=== PATIENT | male | born 1945 | race Caucasian/White ===

== ENCOUNTER → 2018-06-05 08:01 | Outpatient (CLI) | payer OTHER, SELFPAY ==
--- NOTE | 2018-06-05 | DI.NM.S_ITS ---
PROCEDURE: NM CAROL PERF SPECT REST & STR Rest and exercise myocardial perfusion SPECT with gated imaging and ejection fraction RADIOPHARMACEUTICAL: 22.8 mCi Tc-99m sestamibi IV at rest and 26.8 mCi Tc-99m sestamibi IV at peak exercise. A two day-protocol was performed. INDICATIONS: Atherosclerotic heart disease of [place] coronary a TECHNIQUE: Radiopharmaceutical was injected at peak stress test, and also at rest. SPECT images were obtained. SPECT myocardial perfusion images were displayed in short axis, horizontal long axis, and vertical long axis views. Gated images were reviewed using [employer] software. COMPARISON: None. CARDIAC STRESS: A standard Jameson treadmill exercise tolerance test was performed by the patient under the supervision of an attending staff. The patient exercised for 5 minutes and 49 seconds reaching 7.0 METs; functional aerobic impairment (TARIK) is +10%. Hemodynamic data: There is normal heart rate response to exercise stress. Patient achieved 83% of maximum predicted heart [place] [address], suggesting adequate stress test. Hypertension at rest (BP 150/100) and borderline hypertensive response to exercise (BP 210/110). Symptoms: Patient denied chest pain during exercise. EKG: No diagnostic EKG changes of ischemia; frequent PVCs present. FINDINGS: Raw data: There is good myocardial labeling by radiotracer. No significant motion artifacts. Kjio-ur-tyiwb ratio is 0.37 (normal is less than 0.38 for sestamibi tracer, and less than 0.50 for thallium tracer). Left ventricle function: Gated images demonstrate normal left ventricle wall thickening. No segmental wall motion abnormality. No transient ischemic dilation; TID is 0.81 (normal less than 1.3). The left ventricle resting end-diastolic volume is 122 mL. Left ventricle stress ejection fraction is 69% ; normal values are above 45%. Myocardial perfusion: There is a mildly to moderately intense fixed defect in the basal to mid inferior wall suggesting prior non-transmural infarction. No significant ischemia present. 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 1) Mildly to moderately intense basal to mid inferior wall fixed defect suggestive of prior infarction. No significant ischemia present. SSS and SRS are 14. 2) Normal left ventricular size, wall motion, and systolic function (EF post stress 69%). 3) No ECG evidence of ischemia. Frequent PVCs present. 4) No angina during the study. Significant dyspnea present during the study. 5) Mildly reduced exercie tolerance (7.0 METs, TARIK +10%). Adequate stress test (double product 18270 with 83% of target heart rate achieved). 6) Hypertension at rest (BP 150/100) and borderline hypertensive response to exercise (BP 210/110). 7) No prior nuclear stress test available for comparison. Dictated by: Carissa Orozco MD on 06/09/2018 at 17:43 Approved by: Carissa Orozco MD on 06/09/2018 at 17:50
--- NOTE | 2018-06-05 09:19 | PM.TREADMILL ---
Cardiac Stress Test Report Referral & Results Date Patient Seen: 06/05/18 Requesting provider: Carissa Orozco Rest ECG: Unremarkable Procedure Note: Today following both written and verbal informed consent the patient was exercised according to a standard Jameson protocol patient went for a total of 5 min 49 sec achieving a maximum heart rate of 120 for maximum systolic blood pressure of 210. This is approximately 7.0 METS. Exercise was terminated at this point because of severe knee and hip symptoms as well as 3+ dyspnea. Patient was also given Cardiolite through a previously started Hep-Lock IV by the health care sanitary technician approximately 1 minute prior to the cessation of exercise. There are no ST-T segment changes Somewhat hypertensive to start an overall peak blood pressure hypertensive Frequent PVCs including a single ventricular couplet Functional aerobic impairment rated 10% on the sedentary scale Impression: No evidence of ischemia based on ECG criteria Hypertension, and average exercise capacity Ventricular dysrhythmia as above Perfusion imaging to be reported separately Please note: Actual ECG tracings can be found in the PACS system.
== END ==
PROVIDERS: PCP Family Medicine; Visit Provider Internal Medicine Cardiovascular Disease
DX: I25.10 Atherosclerotic heart disease of native coronary artery without angina pectoris (principal); I25.2 Old myocardial infarction; I49.3 Ventricular premature depolarization; I10 Essential (primary) hypertension
CPT/HCPCS: 78452; 93016; 93017; 93018; A9502

== ENCOUNTER 2018-07-14 09:42 | Emergency (ER) | payer OTHER, SELFPAY ==
[2018-07-14] VITALS (7 sets, daily range): BP systolic 106–141; BP diastolic 74–96; PULSE 68–78; RESP 12–20; TEMP 36.4; O2SAT 97–100; BMI 27.6
--- NOTE | 2018-07-14 09:42 | DI.RAD.S_ITS ---
PROCEDURE: XR CHEST 1V INDICATIONS: presyncope, hx of cardiac stents sept TECHNIQUE: One view of the chest was acquired. COMPARISON: [facility], , CHEST 1 VIEW, 09/01/2016, 7:51. FINDINGS: Surgical changes and devices: None. Lungs and pleura: No pleural effusions or pneumothorax. Lungs are clear. Mediastinum: Mediastinal contours appear normal. Heart size is normal. Bones and chest wall: No suspicious bony lesions. Overlying soft tissues appear unremarkable. IMPRESSION: No acute cardiopulmonary pathology. Dictated by: Sachin Walker M.D. on 07/14/2018 at 10:12 Approved by: Sachin Walker M.D. on 07/14/2018 at 10:16
--- NOTE | 2018-07-14 09:44 | ED.SYNCOPE ---
HPI - Syncope General Chief Complaint: Syncope Stated Complaint: Near Syncope Time Seen by Provider: 07/14/18 09:42 Source: patient and EMS Mode of arrival: EMS Limitations: no limitations History of Present Illness HPI narrative: This is a 73-year-old male comes to the emergency department with complaint of near-syncope. Patient was at cardiac rehab when he felt lightheaded like he might pass out. He did not get tunnel vision or have any actual syncope. Patient states that he has not had any headache, no vision changes, he denies any chest pain or pressure, no shortness of breath, no nausea or vomiting no recent GI or urinary symptoms. Patient did have a heart attack in April during a flight and was treated in [place] and had cardiac stents placed. 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 Bourgeois. Has a prior history of bladder cancer and Ruiz's esophagitis. Patient takes aspirin and Plavix which he has had today, he takes a statin as well as blood pressure medication. Patient states that with his last heart attack he had a syncopal event but was also very nauseated and vomiting. Related Data Home Medications Medication Instructions Recorded Confirmed aspirin 81 mg tablet,delayed 81 mg PO DAILY 05/08/18 07/14/18 release atorvastatin 80 mg tablet 80 mg PO BEDTIME 05/08/18 07/14/18 carvedilol 6.25 mg tablet 6.25 mg PO BID 05/08/18 07/14/18 omeprazole 20 mg capsule,delayed 20 mg PO BID cap 05/08/18 07/14/18 release clopidogrel 75 mg tablet 75 mg PO DAILY 07/10/18 07/14/18 Previous Rx's Medication Instructions Recorded hydrochlorothiazide 25 mg tablet 25 mg PO DAILY #90 tab 02/07/18 lisinopril 20 mg tablet 20 mg PO BID #60 tab 05/08/18 cyclobenzaprine 10 mg tablet 10 mg PO BID PRN #60 tab 07/10/18 Allergies Allergy/AdvReac Type Severity Reaction Status Date / Time Penicillins [PENICILLINS] Allergy Intermediate Hives Verified 07/14/18 09:47 Review of Systems Review of Systems All systems reviewed & are unremarkable except as noted in HPI and below Constitutional Denies chills, Denies fatigue, Denies fever(s), Denies headache(s) and Denies weakness Eyes Denies blurry vision and Denies change in vision ENT Ears, Nose, Mouth, and Throat: Denies headache(s) Cardiovascular Denies chest pain, Denies diaphoresis, Denies syncope (But felt like he would pass), Denies edema, Denies irregular heart rhythm, Reports lightheadedness, Denies palpitations, Denies dyspnea, Denies dyspnea on exertion and Denies orthopnea Respiratory Denies change in phlegm color, Denies chest congestion, Denies cough, Denies dyspnea and Denies dyspnea on exertion Gastrointestinal Gastrointestinal: Denies abdominal pain, Denies change in bowel habits, Denies diarrhea, Denies nausea and Denies vomiting Genitourinary Denies hematuria, Denies flank pain, Denies urinary incontinence and Denies urinary urgency Musculoskeletal Denies back pain and Denies numbness Neurologic Denies syncope (But felt like he would pass), Denies headache(s), Denies focal weakness, Denies numbness, Denies paresthesias and Denies weakness Endocrine Denies fatigue and Denies palpitations PFSH Social History marital status: Smoking Status: Never smoker alcohol intake: never substance use type: does not use Exam Initial Vital Signs Initial Vital Signs: Vital Signs Temperature 97.6 F 07/14/18 09:35 Pulse Rate 73 07/14/18 09:35 Respiratory Rate 14 07/14/18 09:35 Blood Pressure 112/86 07/14/18 09:35 Pulse Oximetry 100 07/14/18 09:35 GENERAL: Alert and oriented x three, well-nourished, well-appearing male in no acute distress. Patient is lying flat initially on exam. No diaphoresis. HEENT: Head normocephalic, atraumatic, EOMI, pupils reactive, face symmetric, dry mucous membranes NECK: Supple, full range of motion CARDIOVASCULAR: Regular rate and rhythm without murmurs, rubs or gallops. RESPIRATORY: Breath sounds equal bilaterally, no wheezes rales or rhonchi. ABDOMEN: Soft, nontender. Normoactive bowel sounds all 4 quadrants. No guarding or rebound, rigidity, no mass, no bruit or pulsatile mass. : No CVA tenderness EXTREMITIES: Normal range of motion, no clubbing or edema. 2+ pulses upper and lower extremities. Neurovascularly intact NEUROLOGICAL: Cranial nerves II through XII grossly intact. Moving all extremities SKIN: Warm, dry, no petechiae, no rashes or lesions. Course Orders Ordered: ED Orders 07/14/18 09:42 XR chest 1V Stat EKG-12 Lead Stat 07/14/18 10:10 B Type Natriuretic Peptide Stat Complete Blood Count AUTO DIFF Stat Comprehensive Metabolic Panel Stat Lipase Stat Partial Thromboplastin Time Stat Prothrombin Time INR Stat Troponin & CK Cardiac Panel Stat 07/14/18 12:10 Troponin I Stat EKG-12 Lead Stat Discontinued Medications Sodium Chloride (Normal Saline 0.9%) 1,000 mls @ 1,000 mls/hr IV BOLUS ONE Stop: 07/14/18 10:41 Last Infusion: 07/14/18 10:41 Dose: 0 mls/hr Admin: 07/14/18 10:07 Dose: 1,000 mls/hr Vital Signs - 8 hr 07/14/18 09:35 07/14/18 10:17 07/14/18 10:30 Temperature 97.6 F Pulse Rate 73 68 73 Respiratory Rate 14 13 20 Blood Pressure 112/86 Blood Pressure [Right Arm] 124/83 106/74 Pulse Oximetry 100 100 97 07/14/18 11:18 07/14/18 11:30 07/14/18 11:58 Temperature Pulse Rate 73 72 77 Respiratory Rate 12 13 18 Blood Pressure Blood Pressure [Right Arm] 122/83 136/96 H 139/96 H Pulse Oximetry 97 97 98 07/14/18 12:47 Temperature Pulse Rate 78 Respiratory Rate 17 Blood Pressure Blood Pressure [Right Arm] 141/91 H Pulse Oximetry 99 MDM - Syncope Lab Data Attestation: I reviewed the patient's lab results. Result diagrams: 07/14/18 10:10 07/14/18 10:10 Lab Results 07/14/18 07/14/18 07/14/18 Range/Units 10:10 10:10 10:10 WBC 8.3 (4.5-11.0) X10^3/uL RBC 4.48 L (4.5-5.9) X10^6/uL Hgb 12.9 L (13.5-17.5) g/dL Hct 39.1 L (41-53) % MCV 87.3 (80-100) fL MCH 28.8 (26-34) PG MCHC 33.0 (30-36) % RDW 15.0 H (11.6-14.8) % Plt Count 258 (150-400) X10^3/uL Neut % (Auto) 56.0 (50-75) % Lymph % (Auto) 22.0 L (25-40) % Real % (Auto) 17.7 H (3-14) % Eos % (Auto) 3.4 (2-4) % Baso % (Auto) 0.9 (0-2) % Neut # (Auto) 4600 (5649-0506) /uL PT 12.3 (10.1-12.7) SECONDS INR 1.1 (0.9-1.3) APTT 28 (26.4-36.2) SECONDS Sodium 141 (137-145) mmol/L Potassium 3.9 (3.4-5.1) mmol/L Chloride 107 (98-107) mmol/L Carbon Dioxide 23 (22-32) mmol/L BUN 24 H (9-20) mg/dL Creatinine 1.20 (0.66-1.25) mg/dL Estimated GFR 59.7 L (>60) mL/min BUN/Creatinine Ratio 20.0 (6-22) Glucose 94 (80-110) mg/dL Calcium 9.0 (8.4-10.2) mg/dL Total Bilirubin 0.5 (0.2-1.3) mg/dL AST 23 (17-59) IU/L ALT 39 (21-72) IU/L Alkaline Phosphatase 60 (38-126) U/L Total Creatine Kinase 83 (55-170) U/L CK-MB (CK-2) TNP CK-MB (CK-2) Rel Index TNP Troponin I < 0.012 (0.01-0.034) ng/mL B-Natriuretic Peptide < 100.0 (<100) Total Protein 6.0 L (6.3-8.2) g/dL Albumin 3.3 L (3.5-5.0) g/dL Globulin 2.7 (1.7-4.1) g/dL Albumin/Globulin Ratio 1.2 (1.0-2.8) Lipase 98 (23-300) U/L 07/14/18 Range/Units 12:10 WBC (4.5-11.0) X10^3/uL RBC (4.5-5.9) X10^6/uL Hgb (13.5-17.5) g/dL Hct (41-53) % MCV (80-100) fL MCH (26-34) PG MCHC (30-36) % RDW (11.6-14.8) % Plt Count (150-400) X10^3/uL Neut % (Auto) (50-75) % Lymph % (Auto) (25-40) % Real % (Auto) (3-14) % Eos % (Auto) (2-4) % Baso % (Auto) (0-2) % Neut # (Auto) (3283-9486) /uL PT (10.1-12.7) SECONDS INR (0.9-1.3) APTT (26.4-36.2) SECONDS Sodium (137-145) mmol/L Potassium (3.4-5.1) mmol/L Chloride (98-107) mmol/L Carbon Dioxide (22-32) mmol/L BUN (9-20) mg/dL Creatinine (0.66-1.25) mg/dL Estimated GFR (>60) mL/min BUN/Creatinine Ratio (6-22) Glucose (80-110) mg/dL Calcium (8.4-10.2) mg/dL Total Bilirubin (0.2-1.3) mg/dL AST (17-59) IU/L ALT (21-72) IU/L Alkaline Phosphatase (38-126) U/L Total Creatine Kinase (55-170) U/L CK-MB (CK-2) CK-MB (CK-2) Rel Index Troponin I < 0.012 (0.01-0.034) ng/mL B-Natriuretic Peptide (<100) Total Protein (6.3-8.2) g/dL Albumin (3.5-5.0) g/dL Globulin (1.7-4.1) g/dL Albumin/Globulin Ratio (1.0-2.8) Lipase (23-300) U/L Urine Dip Bedside Urine Glucose Negative Bedside Urine Bilirubin - Negative Bedside Urine Ketone - Negative Urine Specific [place] 1.020 Bedside Urine Occult Blood - Negative Bedside Urine pH 6.5 Bedside Urine Protein - Negative Bedside Urine Urobilinogen - Negative Bedside Urine Nitrite - Negative Bedside Urine Leukocytes - Negative Esterase Imaging Data Chest x-ray: Radiologist's impression: [address] [address] XRay Report Signed Patient: Alonzo Goncalves EMR#: [id number] : 7Acct:[id number] Age/Sex: 73 / MDate of Service: 07/14/18 Loc: ED Accession Number: [id number] Procedure: XR chest 1V Ordering Provider: Cheri Her D.O. PROCEDURE: XR CHEST 1V INDICATIONS: presyncope, hx of cardiac stents sept TECHNIQUE: One view of the chest was acquired. COMPARISON: [facility], , CHEST 1 VIEW, 09/01/2016, 7:51. FINDINGS: Surgical changes and devices: None. Lungs and pleura: No pleural effusions or pneumothorax. Lungs are clear. Mediastinum: Mediastinal contours appear normal. Heart size is normal. Bones and chest wall: No suspicious bony lesions. Overlying soft tissues appear unremarkable. IMPRESSION: No acute cardiopulmonary pathology. Dictated by: Sachin Walker M.D. on 07/14/2018 at 10:12 Approved by: Sachin Walker M.D. on 07/14/2018 at 10:16 ECG Data Attestation: I personally reviewed and interpreted this ECG as follows: Interpretation: Patient has sinus rhythm with rate of 77, P are interval of 203 and QRS of 97 with a QTC of 424. Patient has Q-waves in 2 3 AVF which appears similar to prior. ST segments appear similar to prior EKG from 02/10/2010. Do not have more recent EKG than 2011 which also appears similar. Repeat EKG shows sinus rhythm with a rate of 69, a P are interval of 202, a QRS of 114 and a QTC of [address] elevation or depression noted. Q-waves in the same location as the initial EKG. MDM Narrative Medical decision making narrative: Patient's outpatient chart was reviewed, he had a stress test which did not show any ST changes at that time. Patient was encouraged to follow up with Cardiology after his stents were placed as he had several small blockages that were not stented. Patient symptoms at that time were that he had 2 syncopal episodes on his flight and nausea/vomiting. Patient is feeling much better after a L of fluids he is able to stand up and feels fine. Discussed I would like to repeat troponin and EKG particularly has atypical symptoms with his last MD. Patient's stress test was reviewed, he did have wall motion abnormality on his stress test after his MD once he had returned to the area. Patient has known coronary artery disease, likely had orthostatic hypotension and his feeling much better after a L of fluids. His blood pressure has been appropriate repeat troponin x2 is negative with no EKG changes. We did discuss that he has had atypical symptoms in the past and to return if he has any issues. Discharge Plan Departure Patient Disposition: Home Clinical Impression: Pre-syncope Discharge Date/Time: 07/14/18 12:59 Interventions: ED Discharge Assessment Last Done: 07/14/18 12:58 Instructions: DI for Syncope in Adults (Fainting) Activity Restrictions/Additional Instructions: Follow-up with your primary care physician and/or Cardiology for recheck in the next 2-3 days. Make sure you are staying hydrated. You may continue your home medications but monitor your blood pressure Return to the emergency department for any recurrent symptoms such as passing out, near-syncope or almost passing out, new chest pain or pressure, shortness of breath, diaphoresis or sweating, persistent vomiting or other new or concerning symptoms. Prescriptions: No Action omeprazole 20 mg capsule,delayed release(DR/EC) 20 mg PO BID RF: 0 aspirin [Adult Aspirin Regimen] 81 mg tablet,delayed release (DR/EC) 81 mg PO DAILY RF: 0 atorvastatin 80 mg tablet 80 mg PO BEDTIME RF: 0 carvedilol 6.25 mg tablet 6.25 mg PO BID RF: 0 lisinopril 20 mg tablet 20 mg PO BID Qty: 60 RF: 3 hydrochlorothiazide 25 mg tablet 25 mg PO DAILY Qty: 90 RF: 3 clopidogrel 75 mg tablet 75 mg PO DAILY RF: 0 cyclobenzaprine 10 mg tablet 10 mg PO BID PRN (Reason: muscle spasm) Qty: 60 RF: 1
--- NOTE | 2018-07-14 09:52 | ED_ITS ---
HPI - Syncope General Chief Complaint: Syncope Stated Complaint: Near Syncope Time Seen by Provider: 07/14/18 09:42 Source: patient and EMS Mode of arrival: EMS Limitations: no limitations History of Present Illness HPI narrative: This is a 73-year-old male comes to the emergency department with complaint of near-syncope. Patient was at cardiac rehab when he felt lightheaded like he might pass out. He did not get tunnel vision or have any actual syncope. Patient states that he has not had any headache, no vision changes, he denies any chest pain or pressure, no shortness of breath, no nausea or vomiting no recent GI or urinary symptoms. Patient did have a heart attack in April during a flight and was treated in [place] and had cardiac stents placed. His government gauger here is Dr. Orozco and his primary care is Dr. Bourgeois. Has a prior history of bladder cancer and Ruiz's esophagitis. Patient takes aspirin and Plavix which he has had today, he takes a statin as well as blood pressure medication. Patient states that with his last heart attack he had a syncopal event but was also very nauseated and vomiting. Related Data Home Medications Medication Instructions Recorded Confirmed aspirin 81 mg tablet,delayed 81 mg PO DAILY 05/08/18 07/14/18 release atorvastatin 80 mg tablet 80 mg PO BEDTIME 05/08/18 07/14/18 carvedilol 6.25 mg tablet 6.25 mg PO BID 05/08/18 07/14/18 omeprazole 20 mg capsule,delayed 20 mg PO BID cap 05/08/18 07/14/18 release clopidogrel 75 mg tablet 75 mg PO DAILY 07/10/18 07/14/18 Previous Rx's Medication Instructions Recorded hydrochlorothiazide 25 mg tablet 25 mg PO DAILY #90 tab 02/07/18 lisinopril 20 mg tablet 20 mg PO BID #60 tab 05/08/18 cyclobenzaprine 10 mg tablet 10 mg PO BID PRN #60 tab 07/10/18 Allergies Allergy/AdvReac Type Severity Reaction Status Date / Time Penicillins [PENICILLINS] Allergy Intermediate Hives Verified 07/14/18 09:47 Review of Systems Review of Systems All systems reviewed & are unremarkable except as noted in HPI and below Constitutional Denies chills, Denies fatigue, Denies fever(s), Denies headache(s) and Denies weakness Eyes Denies blurry vision and Denies change in vision ENT Ears, Nose, Mouth, and Throat: Denies headache(s) Cardiovascular Denies chest pain, Denies diaphoresis, Denies syncope (But felt like he would pass), Denies edema, Denies irregular heart rhythm, Reports lightheadedness, Denies palpitations, Denies dyspnea, Denies dyspnea on exertion and Denies orthopnea Respiratory Denies change in phlegm color, Denies chest congestion, Denies cough, Denies dyspnea and Denies dyspnea on exertion Gastrointestinal Gastrointestinal: Denies abdominal pain, Denies change in bowel habits, Denies diarrhea, Denies nausea and Denies vomiting Genitourinary Denies hematuria, Denies flank pain, Denies urinary incontinence and Denies urinary urgency Musculoskeletal Denies back pain and Denies numbness Neurologic Denies syncope (But felt like he would pass), Denies headache(s), Denies focal weakness, Denies numbness, Denies paresthesias and Denies weakness Endocrine Denies fatigue and Denies palpitations PFSH Social History marital status: Smoking Status: Never smoker alcohol intake: never substance use type: does not use Exam Initial Vital Signs Initial Vital Signs: Vital Signs Temperature 97.6 F 07/14/18 09:35 Pulse Rate 73 07/14/18 09:35 Respiratory Rate 14 07/14/18 09:35 Blood Pressure 112/86 07/14/18 09:35 Pulse Oximetry 100 07/14/18 09:35 GENERAL: Alert and oriented x three, well-nourished, well-appearing male in no acute distress. Patient is lying flat initially on exam. No diaphoresis. HEENT: Head normocephalic, atraumatic, EOMI, pupils reactive, face symmetric, dry mucous membranes NECK: Supple, full range of motion CARDIOVASCULAR: Regular rate and rhythm without murmurs, rubs or gallops. RESPIRATORY: Breath sounds equal bilaterally, no wheezes rales or rhonchi. ABDOMEN: Soft, nontender. Normoactive bowel sounds all 4 quadrants. No guarding or rebound, rigidity, no mass, no bruit or pulsatile mass. : No CVA tenderness EXTREMITIES: Normal range of motion, no clubbing or edema. 2+ pulses upper and lower extremities. Neurovascularly intact NEUROLOGICAL: Cranial nerves II through XII grossly intact. Moving all extremities SKIN: Warm, dry, no petechiae, no rashes or lesions. Course Orders Ordered: ED Orders 07/14/18 09:42 XR chest 1V Stat EKG-12 Lead Stat 07/14/18 10:10 B Type Natriuretic Peptide Stat Complete Blood Count AUTO DIFF Stat Comprehensive Metabolic Panel Stat Lipase Stat Partial Thromboplastin Time Stat Prothrombin Time INR Stat Troponin & CK Cardiac Panel Stat 07/14/18 12:10 Troponin I Stat EKG-12 Lead Stat Discontinued Medications Sodium Chloride (Normal Saline 0.9%) 1,000 mls @ 1,000 mls/hr IV BOLUS ONE Stop: 07/14/18 10:41 Last Infusion: 07/14/18 10:41 Dose: 0 mls/hr Admin: 07/14/18 10:07 Dose: 1,000 mls/hr Vital Signs - 8 hr 07/14/18 09:35 07/14/18 10:17 07/14/18 10:30 Temperature 97.6 F Pulse Rate 73 68 73 Respiratory Rate 14 13 20 Blood Pressure 112/86 Blood Pressure [Right Arm] 124/83 106/74 Pulse Oximetry 100 100 97 07/14/18 11:18 07/14/18 11:30 07/14/18 11:58 Temperature Pulse Rate 73 72 77 Respiratory Rate 12 13 18 Blood Pressure Blood Pressure [Right Arm] 122/83 136/96 H 139/96 H Pulse Oximetry 97 97 98 07/14/18 12:47 Temperature Pulse Rate 78 Respiratory Rate 17 Blood Pressure Blood Pressure [Right Arm] 141/91 H Pulse Oximetry 99 MDM - Syncope Lab Data Attestation: I reviewed the patient's lab results. Result diagrams: 07/14/18 10:10 07/14/18 10:10 Lab Results 07/14/18 07/14/18 07/14/18 Range/Units 10:10 10:10 10:10 WBC 8.3 (4.5-11.0) X10^3/uL RBC 4.48 L (4.5-5.9) X10^6/uL Hgb 12.9 L (13.5-17.5) g/dL Hct 39.1 L (41-53) % MCV 87.3 (80-100) fL MCH 28.8 (26-34) PG MCHC 33.0 (30-36) % RDW 15.0 H (11.6-14.8) % Plt Count 258 (150-400) X10^3/uL Neut % (Auto) 56.0 (50-75) % Lymph % (Auto) 22.0 L (25-40) % [place] % (Auto) 17.7 H (3-14) % Eos % (Auto) 3.4 (2-4) % Baso % (Auto) 0.9 (0-2) % Neut # (Auto) 4600 (1598-6184) /uL PT 12.3 (10.1-12.7) SECONDS INR 1.1 (0.9-1.3) APTT 28 (26.4-36.2) SECONDS Sodium 141 (137-145) mmol/L Potassium 3.9 (3.4-5.1) mmol/L Chloride 107 (98-107) mmol/L Carbon Dioxide 23 (22-32) mmol/L BUN 24 H (9-20) mg/dL Creatinine 1.20 (0.66-1.25) mg/dL Estimated GFR 59.7 L (>60) mL/min BUN/Creatinine Ratio 20.0 (6-22) Glucose 94 (80-110) mg/dL Calcium 9.0 (8.4-10.2) mg/dL Total Bilirubin 0.5 (0.2-1.3) mg/dL AST 23 (17-59) IU/L ALT 39 (21-72) IU/L Alkaline Phosphatase 60 (38-126) U/L Total Creatine Kinase 83 (55-170) U/L CK-MB (CK-2) TNP CK-MB (CK-2) Rel Index TNP Troponin I < 0.012 (0.01-0.034) ng/mL B-Natriuretic Peptide < 100.0 (<100) Total Protein 6.0 L (6.3-8.2) g/dL Albumin 3.3 L (3.5-5.0) g/dL Globulin 2.7 (1.7-4.1) g/dL Albumin/Globulin Ratio 1.2 (1.0-2.8) Lipase 98 (23-300) U/L 07/14/18 Range/Units 12:10 WBC (4.5-11.0) X10^3/uL RBC (4.5-5.9) X10^6/uL Hgb (13.5-17.5) g/dL Hct (41-53) % MCV (80-100) fL MCH (26-34) PG MCHC (30-36) % RDW (11.6-14.8) % Plt Count (150-400) X10^3/uL Neut % (Auto) (50-75) % Lymph % (Auto) (25-40) % [place] % (Auto) (3-14) % Eos % (Auto) (2-4) % Baso % (Auto) (0-2) % Neut # (Auto) (5363-0771) /uL PT (10.1-12.7) SECONDS INR (0.9-1.3) APTT (26.4-36.2) SECONDS Sodium (137-145) mmol/L Potassium (3.4-5.1) mmol/L Chloride (98-107) mmol/L Carbon Dioxide (22-32) mmol/L BUN (9-20) mg/dL Creatinine (0.66-1.25) mg/dL Estimated GFR (>60) mL/min BUN/Creatinine Ratio (6-22) Glucose (80-110) mg/dL Calcium (8.4-10.2) mg/dL Total Bilirubin (0.2-1.3) mg/dL AST (17-59) IU/L ALT (21-72) IU/L Alkaline Phosphatase (38-126) U/L Total Creatine Kinase (55-170) U/L CK-MB (CK-2) CK-MB (CK-2) Rel Index Troponin I < 0.012 (0.01-0.034) ng/mL B-Natriuretic Peptide (<100) Total Protein (6.3-8.2) g/dL Albumin (3.5-5.0) g/dL Globulin (1.7-4.1) g/dL Albumin/Globulin Ratio (1.0-2.8) Lipase (23-300) U/L Urine Dip Bedside Urine Glucose Negative Bedside Urine Bilirubin - Negative Bedside Urine Ketone - Negative Urine Specific [place] 1.020 Bedside Urine Occult Blood - Negative Bedside Urine pH 6.5 Bedside Urine Protein - Negative Bedside Urine Urobilinogen - Negative Bedside Urine Nitrite - Negative Bedside Urine Leukocytes - Negative Esterase Imaging Data Chest x-ray: Radiologist's impression: [address] [address] XRay Report Signed Patient: Alonzo Goncalves EMR#: [id number] : 7Acct:[id number] Age/Sex: 73 / MDate of Service: 07/14/18 Loc: ED Accession Number: [id number] Procedure: XR chest 1V Ordering Provider: Cheri Her D.O. PROCEDURE: XR CHEST 1V INDICATIONS: presyncope, hx of cardiac stents sept TECHNIQUE: One view of the chest was acquired. COMPARISON: [facility], , CHEST 1 VIEW, 09/01/2016, 7:51. FINDINGS: Surgical changes and devices: None. Lungs and pleura: No pleural effusions or pneumothorax. Lungs are clear. Mediastinum: Mediastinal contours appear normal. Heart size is normal. Bones and chest wall: No suspicious bony lesions. Overlying soft tissues appear unremarkable. IMPRESSION: No acute cardiopulmonary pathology. Dictated by: Sachin Walker M.D. on 07/14/2018 at 10:12 Approved by: Sachin Walker M.D. on 07/14/2018 at 10:16 ECG Data Attestation: I personally reviewed and interpreted this ECG as follows: Interpretation: Patient has sinus rhythm with rate of 77, P are interval of 203 and QRS of 97 with a QTC of 424. Patient has Q-waves in 2 3 AVF which appears similar to prior. ST segments appear similar to prior EKG from 02/10/2010. Do not have more recent EKG than 2011 which also appears similar. Repeat EKG shows sinus rhythm with a rate of 69, a P are interval of 202, a QRS of 114 and a QTC of [address] elevation or depression noted. Q-waves in the same location as the initial EKG. MDM Narrative Medical decision making narrative: Patient's outpatient chart was reviewed, he had a stress test which did not show any ST changes at that time. Patient was encouraged to follow up with Cardiology after his stents were placed as he had several small blockages that were not stented. Patient symptoms at that time were that he had 2 syncopal episodes on his flight and nausea/vomiting. Patient is feeling much better after a L of fluids he is able to stand up and feels fine. Discussed I would like to repeat troponin and EKG particularly has atypical symptoms with his last TN. Patient's stress test was reviewed, he did have wall motion abnormality on his stress test after his TN once he had returned to the area. Patient has known coronary artery disease, likely had orthostatic hypotension and his feeling much better after a L of fluids. His blood pressure has been appropriate repeat troponin x2 is negative with no EKG changes. We did discuss that he has had atypical symptoms in the past and to return if he has any issues. Discharge Plan Departure Patient Disposition: Home Clinical Impression: Pre-syncope Discharge Date/Time: 07/14/18 12:59 Interventions: ED Discharge Assessment Last Done: 07/14/18 12:58 Instructions: DI for Syncope in Adults (Fainting) Activity Restrictions/Additional Instructions: Follow-up with your primary care physician and/or Cardiology for recheck in the next 2-3 days. Make sure you are staying hydrated. You may continue your home medications but monitor your blood pressure Return to the emergency department for any recurrent symptoms such as passing out, near-syncope or almost passing out, new chest pain or pressure, shortness of breath, diaphoresis or sweating, persistent vomiting or other new or concerning symptoms. Prescriptions: No Action omeprazole 20 mg capsule,delayed release(DR/EC) 20 mg PO BID RF: 0 aspirin [Adult Aspirin Regimen] 81 mg tablet,delayed release (DR/EC) 81 mg PO DAILY RF: 0 atorvastatin 80 mg tablet 80 mg PO BEDTIME RF: 0 carvedilol 6.25 mg tablet 6.25 mg PO BID RF: 0 lisinopril 20 mg tablet 20 mg PO BID Qty: 60 RF: 3 hydrochlorothiazide 25 mg tablet 25 mg PO DAILY Qty: 90 RF: 3 clopidogrel 75 mg tablet 75 mg PO DAILY RF: 0 cyclobenzaprine 10 mg tablet 10 mg PO BID PRN (Reason: muscle spasm) Qty: 60 RF: 1
[2018-07-14] MEDS: SODIUM CHLORIDE 0.9% 1,000 ML 1000 ML IV (10:07)
[2018-07-14 10:18] LABS: Add Manual Diff / Slide Review NO; Basophils Percent Auto 0.9 % (0-2); Eosinophils Percent Auto 3.4 % (2-4); Hematocrit 39.1 % (41-53); Hemoglobin 12.9 g/dL (13.5-17.5); Mean Corpuscular Hemoglobin 28.8 PG (26-34); Mean Corpuscular Volume 87.3 fL (80-100); Monocytes Percent Auto 17.7 % (3-14); Neutrophils Absolute Auto 4600 /uL (3000-5900); Platelet Count 258 X10^3/uL (150-400); Red Blood Cell Count 4.48 X10^6/uL (4.5-5.9); White Blood Cell Count 8.3 X10^3/uL (4.5-11.0)
--- NOTE | 2018-07-14 10:18 | PC.NURSE ---
Patient reported some dizziness with sitting upright for xray. Laid patient back down.
[2018-07-14 10:37] LABS: Alanine Aminotransferase 39 IU/L (21-72); Albumin 3.3 g/dL (3.5-5.0); Albumin Globulin Ratio 1.2 (1.0-2.8); Alkaline Phosphatase 60 U/L (38-126); Aspartate Aminotransferase 23 IU/L (17-59); Bilirubin Total 0.5 mg/dL (0.2-1.3); Blood Urea Nitrogen 24 mg/dL (9-20); Carbon Dioxide 23 mmol/L (22-32); Chloride 107 mmol/L (98-107); Creatine Kinase 83 U/L (55-170); Estimated Glomerular Filt Rate 59.7 mL/min (>60); Globulin 2.7 g/dL (1.7-4.1); Glucose 94 mg/dL (80-110); HEMOLYSIS < 15 (0-50); Lipase 98 U/L (23-300); Potassium 3.9 mmol/L (3.4-5.1); Sodium 141 mmol/L (137-145)
[2018-07-14 10:56] LABS: B Type Natriuretic Peptide < 100.0 (<100)
[2018-07-14 11:14] LABS: Troponin I < 0.012 ng/mL (0.01-0.034)
[2018-07-14 11:40] LABS: INR 1.1 (0.9-1.3); Prothrombin Time 12.3 SECONDS (10.1-12.7)
[2018-07-14 11:43] LABS: PTT Partial Thromboplastin Tim 28 SECONDS (26.4-36.2)
[2018-07-14 12:38] LABS: Troponin I < 0.012 ng/mL (0.01-0.034)
--- NOTE | 2018-07-14 12:57 | PC.NURSE ---
Patietn up at side of bed couple of times reports feeling significantly better. Patient states I feel normal Denies dizziness or lightheaded
== END 2018-07-14 12:59 | disposition home or self-care (01) ==
PROVIDERS: Emergency Provider Emergency Medicine; PCP Family Medicine
DX: R55 Syncope and collapse (principal)
CPT/HCPCS: 36415; 71045; 80053; 81003; 82550; 83690; 83880; 84484; 85025; 85610; 85730; 93005; 93010; 93041; 96360; 99285

== ENCOUNTER → 2018-07-18 11:36 | Outpatient (CLI) | payer OTHER, SELFPAY ==
[2018-07-18 12:18] LABS: Add Manual Diff / Slide Review NO; Basophils Percent Auto 1.1 % (0-2); Eosinophils Percent Auto 2.6 % (2-4); Hematocrit 43.2 % (41-53); Hemoglobin 14.4 g/dL (13.5-17.5); Lymphocytes Percent Auto 24.1 % (25-40); Mean Corpuscular HGB Conc 33.4 % (30-36); Mean Corpuscular Hemoglobin 29.1 PG (26-34); Mean Corpuscular Volume 87.2 fL (80-100); Monocytes Percent Auto 16.2 % (3-14); Neutrophils Absolute Auto 4200 /uL (3000-5900); Platelet Count 291 X10^3/uL (150-400); Red Blood Cell Count 4.96 X10^6/uL (4.5-5.9); Red Cell Distribution Width 15.3 % (11.6-14.8); White Blood Cell Count 7.5 X10^3/uL (4.5-11.0)
[2018-07-18 13:20] LABS: BUN Creatinine Ratio 19.1 (6-22); Blood Urea Nitrogen 21 mg/dL (9-20); Calcium 10.5 mg/dL (8.4-10.2); Carbon Dioxide 26 mmol/L (22-32); Chloride 104 mmol/L (98-107); Cholesterol 126 mg/dL (140-199); Estimated Glomerular Filt Rate > 60.0 mL/min (>60); Glucose 98 mg/dL (80-110); HDL Cholesterol 50 mg/dL (40-60); HEMOLYSIS < 15 (0-50); LDL Cholesterol Calculated 56 mg/dL (<100); Potassium 4.5 mmol/L (3.4-5.1); Sodium 144 mmol/L (137-145); Triglycerides 98 mg/dL (35-150)
[2018-07-18 13:48] LABS: TSH w/ Reflex to FT4 1.08 uIU/mL (0.47-4.68)
== END ==
PROVIDERS: Family Medicine; Family Provider Physician Assistant; PCP Family Medicine; Visit Provider Physical Medicine & Rehabilitation
DX: M47.817 Spondylosis without myelopathy or radiculopathy, lumbosacral region (principal); R55 Syncope and collapse; E78.5 Hyperlipidemia, unspecified; I10 Essential (primary) hypertension
CPT/HCPCS: 36415; 80048; 80061; 84443; 85025

== ENCOUNTER → 2018-07-18 18:33 | Outpatient (CLI) | payer OTHER, SELFPAY ==
--- NOTE | 2018-07-18 18:41 | DI.MRI.S_ITS ---
PROCEDURE: MR LUMBAR SPINE WO CON INDICATIONS: EVAL TECHNIQUE: Noncontrast sagittal T1 spin echo and T2 fast echo, sagittal STIR, axial T1 and T2 fast spin echo through the lumbar spine. In cases with scoliosis, additional coronal T2 fast spin echo may be performed. COMPARISON: Located Within [facility], MR, L-SPINE WITHOUT CONTRAST, 05/13/2014, 9:25. Located Within [facility], CR, L-SPINE 2-3 VIEWS, 04/16/2014, 12:36. FINDINGS: Image quality: Excellent. Alignment and Curvature: 6 [id number] lumbar vertebrae are present. To be consistent with prior lumbar spine MRI and x-ray exams, the same numbering nomenclature is use in this report. There is moderate levoscoliosis; otherwise normal bony alignment. Bone Marrow: Degenerative endplate signal changes at L2 and L3. No acute vertebral body compression fractures. Spinal Cord: Conus medullaris terminates at the L1 level. Visualized cord demonstrates normal signal and size. Paraspinous Soft Tissues: No paravertebral masses. Probable parapelvic cyst in the kidneys. T12-L1: Moderate loss of disc height and disc desiccation. There is diffuse posterior disc bulge and disc osteophyte complex. Mild bilateral facet arthropathy and hypertrophy of ligamentum flavum. The central canal is mildly narrowed. Mild bilateral foraminal stenosis. There is no significant change from the last exam. L1-L2: Mild loss of disc height and disc desiccation. There is diffuse posterior disc bulge and disc osteophyte complex. Mild bilateral facet arthropathy and hypertrophy of ligamentum flavum. The central canal is mildly narrowed. Moderate lateral foraminal stenosis. There is no significant change from the last exam. L2-L3: Moderate to severe loss of disc height and disc desiccation. There is diffuse posterior disc bulge and disc osteophyte complex. Mild bilateral facet arthropathy and hypertrophy of ligamentum flavum. The central canal is mildly narrowed. Moderate bilateral foraminal stenosis. There is no significant change from the last exam. L3-L4: Mild to moderate loss of disc height and disc desiccation. There is diffuse posterior disc bulge and more eccentric left posterior disc osteophyte complex. Moderate right and mild left facet arthropathy and hypertrophy of ligamentum flavum. The central canal is mildly narrowed. [id number] bilateral foraminal stenosis. There is severe narrowing of the left lateral recess. There is no significant change from the last exam. L4-L5: Preserved disc height and moderate disc desiccation. There is diffuse posterior disc bulge. Mild bilateral facet arthropathy. The central canal is mildly narrowed. Mild bilateral foraminal stenosis. There is no significant change from the last exam. L5-S1: Preserved disc height and moderate disc desiccation. There is mild posterior disc bulge. Mild bilateral facet arthropathy. The central canal is patent. Mild bilateral foraminal stenosis. There is no significant change from the last exam. 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 IMPRESSION: 1. Multilevel degenerative disc disease and facet arthropathy as described. 2. Mild central canal stenosis at T12-L1, L1-L2, L2-L3, L3-L4, and L4-L5. 3. Multilevel foraminal stenosis as described. 4. Severe narrowing of the left lateral recess at L3-L4 from left posterior lateral disc osteophyte. 5. Moderate levoscoliosis. 6. There are 6 [id number] lumbar vertebrae suggesting transitional anatomy. The same numbering system is used in this report as the last MRI. Please confirm vertebral levels prior to surgery and interventional procedures. Dictated by: Capri Saldivar M.D. on 07/21/2018 at 9:12 Approved by: Capri Saldivar M.D. on 07/21/2018 at 9:53
== END ==
PROVIDERS: Family Provider Physician Assistant; PCP Family Medicine; Visit Provider Physical Medicine & Rehabilitation
DX: M47.816 Spondylosis without myelopathy or radiculopathy, lumbar region (principal); M47.817 Spondylosis without myelopathy or radiculopathy, lumbosacral region; M51.36 Other intervertebral disc degeneration, lumbar region; M51.37 Other intervertebral disc degeneration, lumbosacral region; M41.9 Scoliosis, unspecified; M48.05 Spinal stenosis, thoracolumbar region; M48.061 Spinal stenosis, lumbar region without neurogenic claudication; M48.07 Spinal stenosis, lumbosacral region; M99.83 Other biomechanical lesions of lumbar region; R55 Syncope and collapse; E78.5 Hyperlipidemia, unspecified; I10 Essential (primary) hypertension
CPT/HCPCS: 36415; 72148; 80048; 80061; 84443; 85025

== ENCOUNTER → 2018-07-22 09:38 | Outpatient (CLI) | payer OTHER, SELFPAY ==
--- NOTE | 2018-07-22 09:40 | DI.RAD.S_ITS ---
PROCEDURE: XR LUMBAR SPINE MIN 4V INDICATIONS: Lumbar pain with bending TECHNIQUE: 5 views of the lumbar spine were acquired. COMPARISON: [facility], , L-SPINE 2-3 VIEWS, 04/16/2014, 12:36. FINDINGS: Bones: No fracture or focal osseous destruction is present. Diffuse in plate spurring and sclerosis is seen. There is multilevel facet arthropathy. Mild narrowing of the L4-L5 and L5-S1 disc space. Moderate narrowing of the remaining lumbar disc spaces. No definite interval change since 08/16/13. Levorotoscoliosis centered at L3. Soft tissues: Overlying bowel gas pattern is normal. No suspicious soft tissue calcifications. Oblique images: No pars defects. IMPRESSION: Overall, grossly unchanged examination redemonstrating levoscoliosis and multilevel lumbar disc degeneration, with no definite progression since the prior study. Dictated by: Rommel Sumner M.D. on 07/22/2018 at 11:49 Approved by: Rommel Sumner M.D. on 07/22/2018 at 11:51
== END ==
PROVIDERS: Family Provider Physician Assistant; PCP Family Medicine; Visit Provider Physical Medicine & Rehabilitation
DX: M54.5 Low back pain (principal); M47.817 Spondylosis without myelopathy or radiculopathy, lumbosacral region; M51.36 Other intervertebral disc degeneration, lumbar region; M48.061 Spinal stenosis, lumbar region without neurogenic claudication; M41.9 Scoliosis, unspecified; M99.83 Other biomechanical lesions of lumbar region
CPT/HCPCS: 72110

== ENCOUNTER → 2018-08-06 18:55 | Outpatient (CLI) | payer OTHER, SELFPAY ==
--- NOTE | 2018-08-06 18:57 | DI.MRI.S_ITS ---
PROCEDURE: MR HEAD/BRAIN WO CON INDICATIONS: SYNCOPE - 4 EPISODES TECHNIQUE: Non-contrast axial T1 spin echo, axial T2 fast spin echo, sagittal and axial FLAIR, coronal T2 fast spin echo, axial gradient echo, axial diffusion and ADC through the brain. COMPARISON: None. FINDINGS: Image quality: Excellent. CSF spaces: Ventricles appear symmetric in size and shape. Basal cisterns are patent. No extra-axial fluid collections. Brain: No intracranial bleeds or mass effects. There is cerebral volume loss for age. There are periventricular and deep white matter chronic small vessel ischemic changes. Brainstem appears normal. Diffusion-weighted images show no acute ischemic insults. No chronic ischemic insults. Normal intravascular flow voids are present. Skull and face: Calvarial bone marrow is normal in signal. Orbits are normal. Sinuses: Mild to moderate mucosal thickening is seen within the inferior maxillary sinuses. Milder mucosal thickening is seen elsewhere within the paranasal sinuses. Mild bilateral mastoid air cell fluid can be seen. IMPRESSION: No acute intracranial process is seen. No findings of acute or subacute infarction can be seen. Note is made of age-appropriate brain parenchymal volume loss and chronic small vessel ischemic changes. Paranasal sinus disease is incidentally noted. Dictated by: Christopher Stoddard M.D. on 08/07/2018 at 7:45 Approved by: Christopher Stoddard M.D. on 08/07/2018 at 7:46
== END ==
PROVIDERS: Family Provider Physician Assistant; PCP Family Medicine; Visit Provider Family Medicine
DX: R55 Syncope and collapse (principal)
CPT/HCPCS: 70551

== ENCOUNTER → 2018-08-13 13:15 | Outpatient (CLI) | payer OTHER, SELFPAY ==
[2018-08-13 14:56] LABS: BUN Creatinine Ratio 16.7 (6-22); Blood Urea Nitrogen 20 mg/dL (9-20); Estimated Glomerular Filt Rate 59.7 mL/min (>60)
== END ==
PROVIDERS: Family Provider Internal Medicine Cardiovascular Disease; PCP Family Medicine; Visit Provider Urology
DX: Z85.51 Personal history of malignant neoplasm of bladder (principal)
CPT/HCPCS: 36415; 82565; 84520

== ENCOUNTER → 2018-08-14 14:07 | Outpatient (CLI) | payer OTHER, SELFPAY ==
--- NOTE | 2018-08-14 | DI.CT.S_ITS ---
PROCEDURE: CT ABDOMEN PELVIS WO/W CON INDICATIONS: BLADDER CANCER - ivp TECHNIQUE: After the administration of oral contrast, 5 mm thick sections acquired from the diaphragms to the iliac crests. After the administration of intravenous contrast, 5 mm thick sections acquired from the diaphragms to the symphysis. 5 mm thick coronal and sagittal reformats were acquired. For radiation dose reduction, the following was used: automated exposure control, adjustment of mA and/or kV according to patient size. COMPARISON: [facility], CT, CT-IVP, 01/10/2011, 7:53. FINDINGS: Image quality: Excellent. ABDOMEN: Lung bases: Lung bases are clear. Heart size is normal. Solid organs: Liver is normal in size and enhancement except for presence of focal biliary distention involving the left lateral hepatic segment, segmentally. No biliary distention is found elsewhere. A central mass lesion at the margin of the branching left main portal vein is not seen. The biliary distention pattern noted above was not present on this single comparison CT available for review from 01/10/11.. Gallbladder appears normal. Biliary system is non-dilated. Pancreas enhances normally. Spleen is normal in size and enhancement. No adrenal nodules. Both kidneys are normal in size. No hydronephrosis or nephrolithiasis. There are several peripelvic cysts, and no urothelial mass lesion or adjacent adenopathy is seen. The course of the ureters through the retroperitoneum are quite well visualized and appear free of impingement by the mass or adenopathy. Bowel and peritoneum: Stomach, small and large bowel loops are normal in caliber and wall thickness. No free fluid or air. Nodes and vessels: No retroperitoneal or mesenteric adenopathy by size criteria. Aorta and inferior vena are normal in caliber. Miscellaneous: No ventral hernias. PELVIS: Genitourinary: Bladder wall thickness is normal, and there is mild enlargement of the median lobe of the prostate gland. No bladder mass lesion is found. No pelvic adenopathy is seen.. Miscellaneous: No inguinal hernias or adenopathy. Relatively prominent sigmoid diverticulosis is present without acute diverticulitis. A large hydrocele or epididymal cyst appears present at the superior right hemiscrotum. Bones: No suspicious bony lesions. No vertebral body compression fractures. IMPRESSION: 1. Isolated segmental left lateral hepatic segment biliary distention. This raises a significant concern for whether early manifestation of cholangiocarcinoma is present as the underlying cause. Hepatic MR scanning without and with contrast is recommended and also MR cholangiogram as a component of that study is recommended with attention specifically to the area of the bifurcation of the left main portal vein. 2. Improvement in appearance of the left kidney, and no mass lesion now suspected at the right or left renal collecting system. Bilateral peripelvic cysts are again noted. No renal cortical mass is suspected. 3. Throughout the abdomen and pelvis no adenopathy is seen. Normal course and caliber of the ureters noted bilaterally. No bladder mass lesions seen. Mild prominence of the prostate gland especially the median lobe. 4. What appears to be a large hydrocele or epididymal cyst is present at the superior margin of the right hemiscrotum. Testicular ultrasound is recommended. Prominent diverticulosis without acute diverticulitis involving sigmoid colon. Dictated by: Babatunde Moran M.D. on 08/14/2018 at 16:28 Approved by: Babatunde Moran M.D. on 08/14/2018 at 16:36
== END ==
PROVIDERS: Family Provider Internal Medicine Cardiovascular Disease; PCP Family Medicine; Visit Provider Urology
DX: C67.9 Malignant neoplasm of bladder, unspecified (principal); N28.1 Cyst of kidney, acquired; K57.30 Diverticulosis of large intestine without perforation or abscess without bleeding
CPT/HCPCS: 74178

== ENCOUNTER → 2018-09-03 12:00 | Outpatient (CLI) | payer OTHER, SELFPAY ==
[2018-09-03 12:34] LABS: Blood Urea Nitrogen 18 mg/dL (9-20); Estimated Glomerular Filt Rate 59.7 mL/min (>60)
== END ==
PROVIDERS: Family Provider Internal Medicine Cardiovascular Disease; PCP Family Medicine; Visit Provider Family Medicine
DX: Z01.812 Encounter for preprocedural laboratory examination (principal)
CPT/HCPCS: 36415; 82565; 84520

== ENCOUNTER → 2018-09-04 16:35 | Outpatient (CLI) | payer OTHER, SELFPAY ==
--- NOTE | 2018-09-04 16:40 | DI.MRI.S_ITS ---
PROCEDURE: MR ABDOMEN WO/W CON INDICATIONS: Localized biliary ductal dilatation in the left hepatic lobe on CT. TECHNIQUE: Coronal HASTE, axial 2D FLASH in- and [id number]; axial breath-hold T2 FSE. Dynamic axial VIBE during the administration of contrast; post-contrast coronal VIBE or 2D FLASH with fat saturation from the hepatic dome to the iliac crests. Optional diffusion weighted imaging and ADC may be performed. COMPARISON: [facility], CT, CT ABDOMEN PELVIS WO/W CON, 08/14/2018, 14:09. FINDINGS: Image quality: There is motion artifact limiting evaluation. Lung bases: No basal pleural effusions. Heart size is normal. There is a small hiatal hernia. Solid organs: There is localized segmental biliary ductal dilatation redemonstrated in the left hepatic lobe. There is a short segment cut off of the ducts with an associated suspected small ill-defined mass between segments 2 and 4A. This demonstrates slight hypointense signal T1 and T2 isointensity with subtle hypoenhancement during the arterial phase following contrast administration. There is isointense to hypointense signal on delayed images. The margins are indistinct limiting assessment of the lesion size. The right intrahepatic biliary ducts as well as the extrahepatic biliary ducts are normal caliber. No discrete filling defects to suggest choledocholithiasis. Gallbladder is normal in appearance without gallstones. Pancreas is normal in morphology. No pancreatic duct dilatation no discrete pancreatic mass lesion. Spleen is normal in size and enhancement. No adrenal nodules. Kidneys demonstrate no hydronephrosis. Nonspecific bilateral perinephric edema is noted. Multiple bilateral renal cysts are redemonstrated. Nodes and vessels: No retroperitoneal or mesenteric adenopathy by size criteria. Aorta and inferior vena cava are normal in size. Bowel and peritoneum: Visualized bowel loops are normal in caliber. No free fluid. Bones and soft tissues: No ventral hernias. Bone marrow is normal in overall signal. IMPRESSION: 1. Localized segmental biliary duct dilatation redemonstrated in the left hepatic lobe with an associated suspected ill-defined small mass lesion. Evaluation is limited due to motion artifact as well as the indistinct margins. 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 Further evaluation may be obtained with a repeat study with Eovist hepatobiliary contrast which may increase conspicuity of the lesion. 2. No evidence of cholelithiasis, cholecystitis, or extrahepatic biliary ductal dilatation. 3. Small hiatal hernia. Dictated by: Philippe Tejada M.D. on 09/05/2018 at 11:14 Approved by: Philippe Tejada M.D. on 09/05/2018 at 11:47
== END ==
PROVIDERS: Family Provider Internal Medicine Cardiovascular Disease; PCP Family Medicine; Visit Provider Family Medicine
DX: K83.8 Other specified diseases of biliary tract (principal); R16.0 Hepatomegaly, not elsewhere classified; K44.9 Diaphragmatic hernia without obstruction or gangrene
CPT/HCPCS: 74183

== ENCOUNTER 2018-10-01 08:30 | Outpatient (RCR) | payer OTHER, SELFPAY ==
--- OUTSIDE RECORDS SUMMARY | 2018-07-24 10:25 | XMS_ITS | Referral Summary ---
:1945 Author Organization [facility] Address [address] [place] [id number] Care Team Providers Name Role Phone Griffin Bourgeois Primary Care Provider Reason for Referral Hospital - Outpatient (Routine) Status Reason Specialty Diagnoses / Procedures Referred By Contact Referred To Contact Closed Diagnoses ASHD (arteriosclerotic heart disease) History of SD (myocardial infarction) [facility] [address] [place] [address] [address] [id number] [place] [address] Diagnostic Imaging (Routine) Status Reason Specialty Diagnoses / Referred By Referred To Procedures Contact Contact Authorized Specialty Diagnoses ASHD (arteriosclerotic heart disease) History of SD (myocardial infarction) [facility] Required Procedures NM CARDIAC STRESS TEST JOSE A Arreola MD [facility] [address] [place] [address] [place] [address] [address] [id number] Phone: [place] [address] Reason for Visit Reason Comments Heart Problem Consultation (Routine) Status Reason Specialty Diagnoses / Referred By Referred To Procedures Contact Contact Authorized Cardiovascular Diagnoses Acute myocardial infarction, unspecified ^New pt refeffer by Dr Bourgeois-SD within last 4 weeks-records in prov folder Griffin Bourgeois Bhrigu Disease / Cardiology Procedures ID OFFICE OUTPATIENT VISIT NEW PATIENT [address] [place] [address] MD Elba Matt [address] [place] [address] [address] [phone] Phone: [place] [address] Fax: Encounter Details Date Type Department Care Team Description 05/16/2018 Office Visit Carissa Frnech ( arteriosclerotic heart disease) (Primary Dx); Clinics Cardiology MD Elba History of SD (myocardial infarction); [place] [address] History of heart artery stent; [facility] M Martin, [facility] [address] Essential hypertension; D [place], [place] Hyperlipidemia, unspecified hyperlipidemia type; [place] [address] History of bladder cancer; [id number] Chronic kidney disease (CKD), stage II (mild) [phone] Allergies Active Allergy Reactions Severity Noted Date Comments Penicillins Hives 08/02/2016 as of this encounter Medications Prescription Sig. Disp. Refills Start End Status Date Date pantoprazole daily. 08/02/20 Active (PROTONIX) 40 mg EC 16 tablet hydroCHLOROthiazide Take 12.5 mg by 02/08/20 Active (HYDRODIURIL) 25 mg mouth daily 18 tablet FLUAD [id number], 67 YR inject 0.5 0 04/16/20 Active UP,,PF, 45 mcg (15 mcg milliliter 18 x 3)/0.5 mL syringe intramuscularly aspirin 81 mg EC Take 81 mg by Active tablet mouth daily clopidogrel (PLAVIX) Take 1 tablet (75 90 tablet 3 05/16/20 Active 75 mg tablet mg total) by mouth 18 019 daily carvedilol (COREG) Take 1 tablet 180 3 05/16/20 Active 6.25 mg tablet (6.25 mg total) by tablet 18 019 mouth 2 (two) times a day atorvastatin (LIPITOR) Take 1 tablet (80 90 tablet 3 05/16/20 Active 80 mg tablet mg total) by mouth 18 019 nightly lisinopril Take 1 tablet (20 180 3 05/16/20 Active (PRINIVIL,ZESTRIL) 20 mg total) by mouth tablet 18 019 mg tablet 2 (two) times a day lisinopril Take 20 mg by 06/10/20 Discontinued (PRINIVIL,ZESTRIL) 20 mouth 2 (two) 17 018 mg tablet times a day metoprolol succinate 06/10/20 Discontinued XL (TOPROL-XL) 50 mg 17 018 24 hr tablet omeprazole (PriLOSEC) Take 20 mg by 04/11/20 Discontinued 20 mg capsule mouth 18 018 ticagrelor (BRILINTA) Take 90 mg by Discontinued 90 mg tablet mouth 2 (two) 018 times a day atorvastatin (LIPITOR) Take 80 mg by Discontinued 80 mg tablet mouth daily 018 carvedilol (COREG) Take 6.25 mg by Discontinued 6.25 mg tablet mouth 2 (two) 018 times a day with meals as of this encounter Active Problems No known active problems Social History Tobacco Use Types Packs/Day Years Used Date Never Smoker Smokeless Tobacco: Never Used Alcohol Use Drinks/Week oz/Week Comments No Former Sex Assigned at Date Recorded Not on file as of this encounter Last Filed Vital Signs Vital Sign Reading Time Taken Blood Pressure 130/90 05/16/2018 10:29 AM PDT Pulse 71 05/16/2018 10:29 AM PDT Temperature - - Respiratory Rate - - Oxygen Saturation - - Inhaled Oxygen Concentration - - Weight 106 kg (234 lb) 05/16/2018 10:29 AM PDT Height 193 cm (6' 3.98) 05/16/2018 10:29 AM PDT Body Mass Index 28.5 05/16/2018 10:29 AM PDT in this encounter Instructions Patient Instructions - Carissa Orozco MD - 05/16/2018 10:30 AM PDTHeart healthy diet is using extra virgin olive oil; eating unsalted nuts such as almonds, cashews, and walnuts/pecans; and eating legumes, lentils, vegetables, and fruits. Avoid red meat and avoid coconut oil.in this encounter Progress Notes Carissa Orozco MD - 05/16/2018 10:30 AM PDTFormatting of this note may be different from the original. Subjective Patient ID: Alonzo Goncalves is a 73 y.o. male that presents today for had concerns including Heart Problem. HPI: 73 yo M h/o CAD s/p RCA stents in the setting of SD 04/2018, HTN, and HLD here for establishing care for his CAD. Patient is here by himself and she lives with his here locally. Patient was on his way to [place] when he felt very lightheaded in the plane. He had syncope in the plane and while getting off the plane. He was taken to the local hospital where coronary angiography revealed severely obstructive RCA disease and mildly obstructive proximal diagonal and mildly obstructive LCx disease. He received two stents to RCA and discharged from the hospital 3 days later. Since his discharge, he has done well and feels back to his normal self. He has had occasional lightheadedness ongetting up quickly from a laying position after sleeping. He has dyspnea while moving his trash canoutside. Denies chest pain, palpitations , heart racing sensations, or syncope. PROBLEM LIST: # CAD s/p STEMI 04/24/18 with 2 GINGER to RCA. Residual 70-80% stenosis in the LCx and diagonal branch # HTN # HLD # Bladder cancer s/p BCG treatment in 2009 Past Medical History: Diagnosis Date ??? Benign localized hyperplasia of prostate with urinary obstruction and lower urinary tract symptoms ??? Bladder cancer (CMS/HCC) TCC cis ??? Bladder cancer (CMS/HCC) ??? Bladder carcinoma (CMS/HCC) ??? Disease 04/2010 BCG treatment ??? Elevated PSA ??? Gross hematuria ??? Inguinal pain, left ??? Kidney calculus 1994 ??? Kidney calculus ??? 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 Renal insufficiency ??? Urinary retention Past Surgical History: Procedure Laterality Date ??? HERNIA REPAIR 1986 ??? HERNIA REPAIR 1969 Family History Problem Relation Age of Onset ??? Stroke Mother 61 Cause of ??? Other Father 89 Phlebitis; Cause of Social History Social History ??? Marital status: Spouse name: N/A ??? Number of children: N/A ??? Years of education: N/A Social History Main Topics ??? Smoking status: Never Smoker ??? Smokeless tobacco: Never Used ??? Alcohol use No Comment: Former ??? Drug use: No ??? Sexual activity: Not Asked Other Topics Concern ??? None Social History Narrative ??? None Allergies Allergen Reactions ??? Penicillins Hives Current Medication List Sig aspirin 81 mg EC tablet Take 81 mg by mouth daily atorvastatin (LIPITOR) 80 mg tablet Take 1 tablet (80 mg total) by mouth nightly carvedilol (COREG) 6.25 mg tablet Take 1 tablet (6.25 mg total) by mouth 2 (two ) times a day FLUAD [id number], 67 YR UP,,PF, 45 mcg (15 mcg x 3)/0.5 mL syringe inject 0.5 milliliter intramuscularly hydroCHLOROthiazide (HYDRODIURIL) 25 mg tablet Take 12.5 mg by mouth daily lisinopril (PRINIVIL,ZESTRIL) 20 mg tablet Take 1 tablet (20 mg total) by mouth 2 (two) times a day pantoprazole (PROTONIX) 40 mg EC tablet daily. atorvastatin (LIPITOR) 80 mg tablet (Discontinued) Take 80 mg by mouth daily carvedilol (COREG) 6.25 mg tablet (Discontinued) Take 6.25 mg by mouth 2 (two) times a day with meals lisinopril (PRINIVIL,ZESTRIL) 20 mg tablet (Discontinued) Take 20 mg by mouth 2 (two) times a day omeprazole (PriLOSEC) 20 mg capsule (Discontinued) Take 20 mg by mouth ticagrelor (BRILINTA) 90 mg tablet (Discontinued) Take 90 mg by mouth 2 (two) times a day clopidogrel (PLAVIX) 75 mg tablet Take 1 tablet (75 mg total) by mouth daily metoprolol succinate XL (TOPROL-XL) 50 mg 24 hr tablet (Discontinued) Review of Systems Constitutional: Negative for fatigue and unexpected weight change. Eyes: Negative for visual disturbance. Respiratory: Negative for chest tightness and shortness of breath. Cardiovascular: Negative for chest pain, palpitations and leg swelling. Gastrointestinal: Negative for blood in stool. Heartburn Endocrine: Negative for polydipsia. Genitourinary: Negative for hematuria. Skin: Negative for rash. Neurological: Negative for dizziness, weakness and light-headedness. Hematological: Does not bruise/bleed easily. Psychiatric/Behavioral: The patient is not nervous/anxious. All other systems reviewed and are negative. Objective BP 130/90 (BP Location: Left arm, Patient Position: Sitting) Pulse 71 Ht 1.93 m Wt 106 kg BMI 28.50 kg/m?? Physical Exam: General appearance: No apparent distress, well-nourished, pleasant, cooperative HEET: Normocephalic atraumatic, no scleral icterus, tongue midline, mucous membranes moist Neck: supple Cardiovascular: RRR, normal S1 and normal S2, no murmurs/ rubs/gallops, PMI nondisplaced, no JVD, noperipheral edema Respiratory: Good aeration, CTAB Abdomen: Soft, nontender, nondistended, + bowel sounds Neuro: Alert, no facial droop, tongue midline, no gross motor deficits Psych: appropriate affect Skin: no rashes on face, neck, and lower extremities Echo 04/26/18 (report) 1. The LV function is 55% 2. There is mild inferobasilar hypokinesis 3. Left atrium is normal 4. Aortic valve is normal 5. Mitral valve is normal 6. Tricuspid valve is normal 7. Pericardium is normal 8. Diastolic dysfunction grade I 9. Right atrium is normal 10. RV function is normal Left Heart Catheterization 04/25/18 LAD is transapical with mild disease. The distal vessel ____ 70% lesion. Medium size first diagonal, which has 70-80% lesion proximally. Circumflex gives off the high OM branch. Bran has long 70-80% stenosis and then an AV groove branch that gives off posterolateral branches. Right coronary artery was cannulated with JR4 diagnostic catheter, occluded proximally. [id number] Xience Mana stent in the mid to distal right. 3.5x28mm Xience Mana stent in proximal to mid right. Results: Successful stent angioplasty of the right with decrease in stenosis from 100% and RYAN 0 flow to 0% with RYAN-3 flow. We would recommend dual antiplatelet therapy with aspirin and Brilinta, beta blockers, and statins. Ambulate the patient 6 hours post and, if stable, discharge in 24 to 48 hours. We would recommend stage intervention on the diagonal and circumflex. ECG 04/24/18 2324 Sinus rhythm, rate 66, normal axis. T-wave inversion in aVL. Boderline ST elevation in II, III, aVF 04/24/18 2326 Sinus rhythm, rate 60, Normal axis. T-wave inversion with borderline ST depression leadI and aVL, borderline ST-elevation in II, III, aVF 04/25/18 0553 Sinus rhythm, rate 84, Left axis, borderline Q-wave in lead II, III , aVF. 04/26/18 0853 Sinus Rhythm, rate 78, normal axis. Borderline Q-waves II, III, aVF. 05/16/18 Sinus rhythm, rate 71, Q wave in inferior leads suggesting old prior SD , Voltage criteria for LVH (R(V5) exceeds 2.60 mV) CXR 04/24/18 Mild CHF. No infiltrate or effusion. Labs 04/25/18 HgbA1c 6.3 04/25/18 Troponin I 6.110, Chol 225, Trig 137, HDL 49, LDL 175 04/26/18 WBC 11.1, Hgb 12.6, Hct 39.8, Plt 237, Na 140, K 3.9, Cl 110, CO2 24, BUN 22, Creat 1.170, Glucose 100, Ca 9.1, Mg 2.4, Phos 2.6 Assessment/Plan Comments: 1. ASHD (arteriosclerotic heart disease) NM CARDIAC STRESS TEST EXERCISE, Basic metabolic panel, Complete blood count, Lipid panel 2. History of SD (myocardial infarction) ECG 12 lead (Clinic - Same Day), NM CARDIAC STRESS TEST EXERCISE 3. History of heart artery stent 4. Essential hypertension Basic metabolic panel, Complete blood count, Lipid panel 5. Hyperlipidemia, unspecified hyperlipidemia type 6. History of bladder cancer 7. Chronic kidney disease (CKD), stage II (mild) # CAD s/p inferior SD treated with GINGER X2 to RCA: patient has residual 70-80% stenosis in the LCx and diagonal branch. LVEF normal. He is asymptomatic but the patient never really had classic symptoms with his inferior SD. I educated the patient about his condition and answered his questions. Plan: - Continue aspirin 81mg daily - Switch from brilinta 90mg bid to clopidogrel 75mg daily - Continue carvedilol 6.25mg bid. If patient calls with fatigue, we can switch him to metoprolol - Treadmill nuclear stress test. No need to hold carvedilol. Use lexiscan to finish the study if unable to reach target heart rate - Will consider PCI of the diagonal and LCx if high risk stress test - Referral to cardiac rehab after stress test # HTN: BP well controlled. Plan: - Continue lisinopril 20mg bid - Continue HCTZ 25mg daily (not 12.5mg as listed in med list) F/U in 3 months with labs. Phone call after stress test to consider heart cath (if highly abnormal)or cardiac rehab (if low risk). ADDENDUM 06/10/2018: Stress test showed prior inferior infarct with no ischemia (SSS and SRS of 14). No need for additional PCI at this time. Will refer the patient to cardiac rehab. Electronically signed by Carissa Orozco MD 05/16/2018 11:20 AM in this encounter Plan of Treatment Scheduled Tests Name Priority Associated Diagnoses Order Schedule Basic metabolic panel Routine ASHD (arteriosclerotic heart Expected: 2018, disease) Expires: 11/15/2019 Essential hypertension Complete blood count Routine ASHD (arteriosclerotic heart Expected: 2018, disease) Expires: 11/15/2019 Essential hypertension Lipid panel Routine ASHD (arteriosclerotic heart Expected: 08/16/2018, disease) Expires: 05/16/2019 Essential hypertension Scheduled Referrals Name Priority Associated Diagnoses Order Schedule *SRC MV Referral to Cardiac Routine ASHD (arteriosclerotic Ordered: 2017 Rehabilitation heart disease) History of SD (myocardial infarction) History of heart artery stent as of this encounter Procedures Procedure Name Priority Date/Time Associated Diagnosis Comments ECG 12-LEAD Routine 05/16/2018 10:43 AM History of SD Results for this PDT (myocardial procedure are in the infarction) results section. in this encounter Results NM CARDIAC STRESS TEST EXERCISE (06/05/2018) Narrative Performed At ECG 12 lead (Clinic - Same Day) (05/16/2018 10:43 AM) Narrative Performed At Result approved by Carissa Orozco MD on 05/16/18 in this encounter Visit Diagnoses Diagnosis ASHD (arteriosclerotic heart disease) - Primary Coronary atherosclerosis of unspecified type of vessel, [place] or graft History of SD (myocardial infarction) Old myocardial infarction History of heart artery stent Essential hypertension Unspecified essential hypertension Hyperlipidemia, unspecified hyperlipidemia type History of bladder cancer Personal history of malignant neoplasm of bladder Chronic kidney disease (CKD), stage II (mild) Chronic kidney disease, Stage II (mild) Insurance Payer Benefit Plan / Group Subscriber ID Type Phone Address [facility] xxxxxxxx [employer] Home: [address] [place], [place] [phone] [place], [place] [address] as of this encounter
== END 2018-10-01 10:00 ==
LOC: CAR 08:30
PROVIDERS: PCP Family Medicine; Visit Provider Internal Medicine Cardiovascular Disease
DX: Z95.5 Presence of coronary angioplasty implant and graft (principal)
CPT/HCPCS: 93798

== ENCOUNTER → 2019-03-30 08:03 | Outpatient (CLI) | payer OTHER, SELFPAY ==
[2019-03-30 08:45] LABS: Add Manual Diff / Slide Review NO; Basophils Absolute Auto 100 /uL (0-100); Basophils Percent Auto 1.4 % (0-2); Eosinophils Absolute Auto 300 /uL (0-450); Eosinophils Percent Auto 3.8 % (2-4); Hematocrit 42.5 % (41-53); Hemoglobin 14.2 g/dL (13.5-17.5); Lymphocytes Absolute Auto 1800 /uL (1100-4500); Lymphocytes Percent Auto 26.8 % (25-40); Mean Corpuscular HGB Conc 33.4 % (30-36); Mean Corpuscular Hemoglobin 28.3 PG (26-34); Mean Corpuscular Volume 84.8 fL (80-100); Monocytes Absolute Auto 1100 /uL (0-900); Monocytes Percent Auto 16.5 % (3-14); Neutrophils Absolute Auto 3500 /uL (1500-7000); Neutrophils Percent Auto 51.5 % (50-75); Platelet Count 312 X10^3/uL (150-400); Red Blood Cell Count 5.02 X10^6/uL (4.5-5.9); Red Cell Distribution Width 15.5 % (11.6-14.8); White Blood Cell Count 6.9 X10^3/uL (4.5-11.0)
[2019-03-30 09:01] LABS: Blood Urea Nitrogen 19 mg/dL (9-20); Calcium 9.8 mg/dL (8.4-10.2); Carbon Dioxide 25 mmol/L (22-32); Chloride 106 mmol/L (98-107); Cholesterol 148 mg/dL (140-199); Estimated Glomerular Filt Rate > 60.0 mL/min (>60); Glucose 99 mg/dL (80-110); HDL Cholesterol 63 mg/dL (40-60); HEMOLYSIS < 15 (0-50); LDL Cholesterol Calculated 67 mg/dL (<100); Sodium 139 mmol/L (137-145); Triglycerides 92 mg/dL (35-150)
== END ==
PROVIDERS: PCP Family Medicine; Visit Provider Internal Medicine Cardiovascular Disease
DX: I10 Essential (primary) hypertension (principal); E78.5 Hyperlipidemia, unspecified
CPT/HCPCS: 36415; 80048; 80061; 85025

== ENCOUNTER → 2019-08-29 11:25 | Outpatient (CLI) | payer OTHER, SELFPAY ==
[2019-08-29 12:23] LABS: Influenza A - CEPHEID Flu A NEGATIVE (NEGATIVE); Influenza B - CEPHEID Flu B POSITIVE (NEGATIVE)
== END ==
PROVIDERS: PCP Family Medicine; Visit Provider Physician Assistant
DX: R68.89 Other general symptoms and signs (principal)
CPT/HCPCS: 87502

== ENCOUNTER → 2019-09-01 09:37 | Outpatient (CLI) | payer OTHER, SELFPAY ==
--- NOTE | 2019-09-01 09:38 | DI.RAD.S_ITS ---
PROCEDURE: XR CHEST 2V INDICATIONS: r/o pneumonia TECHNIQUE: 2 views of the chest were acquired. COMPARISON: [facility], , XR CHEST 1V, 07/14/2018, 9:54. FINDINGS: Surgical changes and devices: None. Lungs and pleura: Lungs are clear. No pleural effusions or pneumothorax. Mediastinum: Mediastinal contours are normal. Heart size is normal. Bones and chest wall: No suspicious bony abnormalities. Soft tissues appear unremarkable. IMPRESSION: No acute pulmonary process. Dictated by: Nicolasa Escobar M.D. on 09/01/2019 at 10:14 Approved by: Nicolasa Escobar M.D. on 09/01/2019 at 10:15
== END ==
PROVIDERS: Family Provider Family Medicine; PCP Family Medicine; Visit Provider Physician Assistant
DX: R05 Cough (principal); J10.1 Influenza due to other identified influenza virus with other respiratory manifestations
CPT/HCPCS: 71046

== ENCOUNTER → 2020-04-23 07:50 | Outpatient (CLI) | payer OTHER, SELFPAY ==
[2020-04-23 09:07] LABS: Add Manual Diff / Slide Review NO; Basophils Absolute Auto 100 /uL (0-100); Basophils Percent Auto 1.5 % (0-2); Eosinophils Absolute Auto 400 /uL (0-450); Eosinophils Percent Auto 4.8 % (2-4); Hematocrit 42.8 % (41-53); Hemoglobin 14.1 g/dL (13.5-17.5); Lymphocytes Absolute Auto 2000 /uL (1100-4500); Mean Corpuscular HGB Conc 32.9 % (30-36); Mean Corpuscular Hemoglobin 28.4 PG (26-34); Mean Corpuscular Volume 86.3 fL (80-100); Monocytes Absolute Auto 1400 /uL (0-900); Monocytes Percent Auto 17.8 % (3-14); Neutrophils Absolute Auto 4100 /uL (1500-7000); Neutrophils Percent Auto 50.9 % (50-75); Platelet Count 288 X10^3/uL (150-400); Red Blood Cell Count 4.96 X10^6/uL (4.5-5.9); Red Cell Distribution Width 15.2 % (11.6-14.8)
[2020-04-23 09:24] LABS: BUN Creatinine Ratio 18.9 (6-22); Blood Urea Nitrogen 21 mg/dL (9-20); Calcium 10.1 mg/dL (8.4-10.2); Carbon Dioxide 27 mmol/L (22-32); Chloride 107 mmol/L (98-107); Cholesterol 146 mg/dL (140-199); Estimated Glomerular Filt Rate > 60.0 mL/min (>60); Glucose 103 mg/dL (80-110); HDL Cholesterol 54 mg/dL (40-60); HEMOLYSIS < 15 (0-50); LDL Cholesterol Calculated 75 mg/dL (<100); Potassium 4.3 mmol/L (3.4-5.1); Sodium 141 mmol/L (137-145); Triglycerides 87 mg/dL (35-150)
== END ==
PROVIDERS: Family Provider Family Medicine; PCP Family Medicine; Referring Provider Internal Medicine Cardiovascular Disease; Visit Provider Internal Medicine Cardiovascular Disease
DX: I10 Essential (primary) hypertension (principal); E78.5 Hyperlipidemia, unspecified
CPT/HCPCS: 36415; 80048; 80061; 85025

== ENCOUNTER → 2020-05-09 11:22 | Outpatient (CLI) | payer OTHER, SELFPAY ==
--- NOTE | 2020-05-09 11:23 | DI.RAD.S_ITS ---
PROCEDURE: XR HIP W PEL IF DONE RT 2V INDICATIONS: rt hip pain TECHNIQUE: AP pelvis with lateral view(s) of the right hip(s). COMPARISON: [facility], , PELVIS WITH BILATERAL HIPS, 04/16/2014, 12:33. FINDINGS: Bones: No fracture. Severe right hip joint degeneration which has progressed since the prior study. Unchanged mild to moderate left hip joint degeneration. Lower lumbar spondylosis. Soft tissues: Scattered vascular calcifications. IMPRESSION: Severe right hip joint degeneration. Interval progression since 04/16/14 Additional degenerative changes as above. Dictated by: Rommel Sumner M.D. on 05/09/2020 at 12:27 Approved by: Rommel Sumner M.D. on 05/09/2020 at 12:29
== END ==
PROVIDERS: Family Provider Family Medicine; PCP Family Medicine; Referring Provider Family Medicine; Visit Provider Family Medicine
DX: M25.551 Pain in right hip (principal); M16.11 Unilateral primary osteoarthritis, right hip
CPT/HCPCS: 73502

== ENCOUNTER → 2020-06-18 07:57 | Outpatient (CLI) | payer OTHER, SELFPAY ==
[2020-06-18 09:44] LABS: Add Manual Diff / Slide Review NO; Basophils Absolute Auto 100 /uL (0-100); Basophils Percent Auto 1.1 % (0-2); Eosinophils Absolute Auto 300 /uL (0-450); Eosinophils Percent Auto 4.6 % (2-4); Hematocrit 43.4 % (41-53); Hemoglobin 14.3 g/dL (13.5-17.5); Lymphocytes Absolute Auto 1800 /uL (1100-4500); Lymphocytes Percent Auto 25.6 % (25-40); Mean Corpuscular HGB Conc 32.9 % (30-36); Mean Corpuscular Hemoglobin 28.5 PG (26-34); Mean Corpuscular Volume 86.7 fL (80-100); Monocytes Absolute Auto 1200 /uL (0-900); Monocytes Percent Auto 16.5 % (3-14); Neutrophils Absolute Auto 3700 /uL (1500-7000); Neutrophils Percent Auto 52.2 % (50-75); Platelet Count 269 X10^3/uL (150-400); Red Blood Cell Count 5.01 X10^6/uL (4.5-5.9); Red Cell Distribution Width 14.8 % (11.6-14.8); White Blood Cell Count 7.2 X10^3/uL (4.5-11.0)
== END ==
PROVIDERS: Family Provider Family Medicine; PCP Family Medicine; Referring Provider Orthopaedic Surgery; Visit Provider Orthopaedic Surgery
DX: Z01.818 Encounter for other preprocedural examination (principal); Z01.812 Encounter for preprocedural laboratory examination
CPT/HCPCS: 36415; 85025

== ENCOUNTER → 2020-06-18 15:30 | Outpatient (CLI) | payer OTHER, SELFPAY | PROVIDERS: Family Provider Family Medicine; PCP Family Medicine; Referring Provider Orthopaedic Surgery; Visit Provider Orthopaedic Surgery | DX: Z01.818 Encounter for other preprocedural examination (principal); Z01.812 Encounter for preprocedural laboratory examination | CPT/HCPCS: 36415; 85025; 93005 ==

== ENCOUNTER → 2020-06-27 13:56 | Outpatient (CLI) | payer OTHER, SELFPAY ==
[2020-06-27 16:12] LABS: COVID19 -Nasal RAPID Negative (Negative)
== END ==
PROVIDERS: Family Provider Family Medicine; PCP Family Medicine; Visit Provider Physician Assistant
DX: Z11.59 Encounter for screening for other viral diseases (principal)
CPT/HCPCS: 87635

== ENCOUNTER 2020-06-29 07:22 | Day surgery (SDC) | payer OTHER, SELFPAY ==
[2020-06-22 13:48] VITALS: BMI 28.5
[2020-06-29] VITALS (17 sets, daily range): BP systolic 103–146; BP diastolic 64–91; PULSE 56–91; RESP 10–18; TEMP 36.1–36.6; O2SAT 91–99; BMI 27.8
--- NOTE | 2020-06-29 | DI.RAD.S_ITS ---
PROCEDURE: XR PELVIS 1-2V INDICATIONS: RIGHT TOTAL HIP TECHNIQUE: 1 view of the lower pelvis acquired. COMPARISON: [facility], , PELVIS WITH BILATERAL HIPS, 04/16/2014, 12:33. FINDINGS: Bones: Patient is status post right total hip arthroplasty, with hardware components in expected positions. The hip joint appears congruent. The visualized bony structures appear intact. Soft tissues: Overlying postoperative changes are noted. No suspicious soft tissue densities. IMPRESSION: Expected postoperative appearance of the right total hip arthroplasty. Dictated by: Hany Louie M.D. on 06/29/2020 at 11:40 Approved by: Hany Louie M.D. on 06/29/2020 at 11:41
[2020-06-29] MEDS: ACETAMINOPHEN 325 MG TABLET 975 MG PO (07:57)
[2020-06-29] MEDS: PREGABALIN 75 MG CAPSULE PO (07:57)
[2020-06-29] MEDS: LACTATED RINGERS 1,000 ML 42 ML IV ×2 (08:00→10:31)
--- NOTE | 2020-06-29 08:25 | SUR.OPER ---
Lateral on padded OR bed. Gel axillary roll. Arms secured on padded armboard with pillow supporting top arm. Padded hip positioner braces x4 - anterior and posterior chest and pelvis. Additional gel pad used anterior pelvis. Gel pad under bottom leg from knee to foot and secured with tape over sheet.
[2020-06-29] MEDS: CLINDAMYCIN 600 MG/50 ML PIGGYBACK 50 MG IV ×2 (08:44→09:20)
--- NOTE | 2020-06-29 08:50 | PM.PREOP ---
Pre-operative Note COVID-19 COVID-19 status: Negative Result date/Date tested (Pos, Neg/Pending): 06/27/20 Interval Note History & Physical reviewed/Exam performed by Physician: Yes Changes to H&P: No
[2020-06-29] MEDS: TRANEXAMIC ACID 1,000 MG VIAL 1000 MG INJ (09:10)
[2020-06-29] MEDS: KETOROLAC 30 MG/ML VIAL IV (09:32)
[2020-06-29] MEDS: ROPIVACAINE 0.5% PF 5 MG/ML 20ML VIAL 60 ML INJ (09:33)
[2020-06-29] MEDS: MORPHINE 4 MG/ML INJ INJ (09:33)
--- NOTE | 2020-06-29 10:45 | P.OP_ITS ---
Operative Date/Time/Diagnoses Date of procedure: 06/29/20 Time of procedure: 10:45 Pre-op diagnosis: Right hip degenerative joint disease Post-op diagnosis: same Procedure & Clinicians Procedure: Right total hip arthroplasty (CPT code 44287 with curriculum assistant) Same procedure as scheduled: Yes Indications: Patient is an 75-year-old male with severe right hip DJD. The patient has pain with activities and at rest, limited ambulation and activity tolerance, difficulties with ADLs, and failure of conservative treatment. We have discussed the nature of condition, treatment options, risks and benefits, and patient elects to proceed with total hip arthroplasty and gives informed consent. Surgeon: Burton Price Cabinetmaker Apprentice: José Miguel Hernandez Anesthesia Type: General and Spinal Operative Notes Closure Type: primary Specimen(s): none sent Prosthetic devices, grafts, tissues, transplants, or devices: Acetabulum: Larkin [employer] Nephew R3 acetabular component size 62 mm Femoral component: Larkin [employer] Nephew Anthology stem size 13 with high offset Femoral head: 36 mm + 0 Oxinium Estimated Blood Loss (mL): 100 Blood products transfused: none Procedure in detail: After satisfaction induction of anesthetic, and administration of IV antibiotics, the patient was positioned in the lateral decubitus position with all bony prominences well padded and pelvic position secured using a hip coil winding supervisor positioning device. Right hip and lower extremity prepped and draped in the usual sterile fashion, 1st dose of intravenous tranexamic acid was administered, then a longitudinal incision was created centered over the greater trochanter and carried sharply through the skin and subcutaneous tissues down to the fascia maría which was divided longitudinally and retracted with a Charnley retractor. External rotators visualize, cut, tagged, and retracted posteriorly, then the capsule was cut in a T-type fashion with the corners tagged and retracted. Hip was dislocated and femoral neck cut made according to preoperative templating. Acetabular retractors then placed, and the acetabular labrum and osteophytes were excised. The acetabulum was then sequentially reamed to 61 mm with an excellent circumferential ream and fit with the trial. The trial component was removed and a permanent size 62 mm Larkin and Nephew R3 acetabular component was selected, positioned, and impacted with satisfactory position and fixation achieved. Significant amounts of periarticular osteophyte anteriorly, posteriorly, and posterior inferiorly were then excised with a combination of rongeur so and osteotomes. Permanent liner was then inserted with the elevated lip directed posteriorly. Soft tissue then removed off the lateral femoral neck in the lateral neck was entered using a box osteotome. T-handled reamers placed down the canal followed by sequential broaching to 13 with the final broach left in place for trial reduction which demonstrated excellent leg length, range of motion, and stability characteristics with a high offset neck trial and a 36 mm +0 trial ball. The trial and broach were removed, and a permanent size 13 high offset Larkin [employer] Nephew Anthology stem was selected and inserted with excellent position and fixation achieved. Another trial reduction yielded the above characteristics so the trial ball was exchanged for a permanent 36 mm +0 Oxinium ball. The hip was irrigated and reduced and excellent leg length range of motion and stability characteristics were achieved and maintained. Periarticular tissues were infiltrated with ropivacaine, morphine, and Toradol. The hip was copiously irrigated, and the capsule repaired with #2 Ethibond, and the piriformis was repaired back to the greater trochanter with the same. Fascia maría closed with interrupted #1 Ethibond sutures, and the subcutaneous tissues were closed in 2 layers of 0 Vicryl and 2 0 Vicryl. Skin was closed with ZipLine closure and sterile dressings applied. Second dose of tranexamic acid was administered intravenously, and the anesthetic was terminated. Complications: none Post-operative Condition: stable Disposition: PACU Plan for aftercare: Patient will be admitted to the acute care [facility], and anticipate discharge on postop day 1 with follow-up in office in 10-14 days. Outpatient physical therapy will be arranged and patient will continue to observe posterior hip precautions. Patient will continue use of aspirin postoperatively for DVT prophylaxis.
--- NOTE | 2020-06-29 12:05 | PC.NURSE ---
Assess- Patient is A&Ox3, to room 220 around 1135. He has had a r.total hip, dressing to area is bulky and cdi. He has feeling to his whole r.extremity but no feeling yet to his l.leg. Per report the pacu nurses did check with anesthesiologist and no new orders. CMS wnl to R.extremity and ppx2. Patient will be on ivf, he is visiting with family now and denies pain. He also had an epidural to mid back and area looks normal.
[2020-06-29] MEDS: LACTATED RINGERS 1,000 ML 125 ML IV ×2 (12:30→21:38)
[2020-06-29] MEDS: ACETAMINOPHEN 325 MG TABLET 650 MG PO ×2 (15:19→20:35)
--- NOTE | 2020-06-29 16:52 | PT.IIE ---
Current Diagnoses Unilateral primary osteoarthritis, right hip (06/29/20) Surgery Performed Operation Date: 06/29/20 08:45 Actual Procedures p Total Hip Arthroplasty(Right) - Burton Price MD Surgical History (Last Updated 06/22/20 @ 14:12 by Samra Cooper, RN) History of bladder surgery (~2009) History of esophagogastroduodenoscopy (EGD) (07/20/16) History of hernia repair (1969) History of hernia repair (1986) History of kidney surgery Hx of heart artery stent (2017) Medical History (Last Updated 06/22/20 @ 14:14 by Sarma Cooper RN) Anemia Ruiz's esophagus with dysplasia Bladder cancer (04/06/10) Chronic low back pain HLD (hyperlipidemia) Hypertension, essential, benign Kidney stones Osteoarthritis Pneumonia Primary osteoarthritis of knees, bilateral Renal mass, left Physical Therapy Inpatient Evaluation/Re-Eval M1 PT/OT-IP Prior Functional Status Start: 06/29/20 14:02 Freq: NEEDED Status: Active Protocol: Document 06/29/20 14:50 HH (Rec: 06/29/20 14:55 HH [email or web address]) Medical Review Prior Functional Status Medical History Reviewed Yes Diet/Fluid Consistency Regular Communication no deficits noted. able to make needs known Mobility and Gait independent for all mobility at home and community without AD. Uses SPC occasionally for long distance walks. Activities of Daily Living and IADL's independent with all ADLs and IADLs without AD. Able to drive Social History Household Members spouse Living Arrangements House Number of Floors (Floors) One Floor Number of Stairs To Enter/Railing? 2 LUIGI no rails, but with ramp entry Home Environment Standard Height Toilet,Walk in Shower,Ramp Home Equipment Straight Cane,Raised Toilet Seat Without Armrests,Long Handled Shoe Horn,Tank Officer,Grab Bars In Shower Employment Status Retired Additional Social History Comment Pt lives with his in [place] who is able to assist as needed. Pt's son live here in [place] as well and he does has friends to assist if needed. M3 PT-IP Subjective Start: 06/29/20 14:02 Freq: NEEDED Status: Active Protocol: Document 06/29/20 16:26 HH (Rec: 06/29/20 16:52 HH [email or web address]) Subjective Physical Therapy Visit Type Type Initial Evaluation Visit Start Time 15:40 Visit Stop Time 16:12 Total Visit Minutes 32 Number of AUTOMOTIVE REFINISH TECHNICIAN Visits 0 Physical Therapy Visit Comments Patient Comments I want to get up and try walking Patient Goals to return home safely with . Therapy Pain Assessment Pain When Pain Assessed During Mobility Pain Present Pain Present Denied Pain M4 PT-IP Mobility and Gait Start: 06/29/20 14:02 Freq: NEEDED Status: Active Protocol: Document 06/29/20 16:26 HH (Rec: 06/29/20 16:52 HH [email or web address]) PT-Bed Mobility Assessment Supine to Sit Supine to Sit Contact Guard Assistance, Bedrails Sit to Supine Sit to Supine Minimal Assistance,Bedrails Scooting Scooting to Edge of Bed Contact Guard Assistance PT-Transfer Assessment Sit to and From Stand Sit to and from Stand Minimal Assistance,1 Person Assistance,Use of Upper Extremities Equipment Transfer Assistive Device Gait Belt,Front Wheeled Walker Orthotic/Prosthetic Devices or Brace: No Transfers Transfer Destination Bed Comments Mobility Comments pt was in bed upon PT and SPT arrival. AxOx4. No sensation to touch and pressure from hip to knee joint line but able to perform supine leg press against PT. Proceeded to attempt PT. Pt understood post op precautions. Bed was flattened then educated pt to use L ankle hook to pivot RLE towards L side. Pt was able to complete it but using R handrail to pull. Pt completed few reps of seated leg press against floor. He then attempted to stand up by pushing off from bedside chair armrest. Pt needed PT R knee block to prevent excessive hip IR. Pt stated His R knee was weak and mostly WB through L LE. His R knee was somewhat wobbly and this PT decided not to proceed with amb. Pt stood at bedside and practiced lateral weight shift multiple times and sat down in bed after. He needed min A on RLE for sit to supine. He denies discomfort/ pain during session. SCD in place and activated and call light placed within reach. Gait Assessment Comments Gait Comments see mobility comments and unable to assess. Stair Climbing Assessment Comments Stair Climbing Comments pt has ramp entry. PT-Balance Assessment Sitting Balance and Reactions Static Sitting Balance Ability Normal Dynamic Sitting Balance Ability Normal Standing Balance and Reactions Static Standing Balance Ability Fair Dynamic Standing Balance Ability Fair Device Used FWW Comments Other Balance Tests/Deviations/Treatment Pt's R knee's sensation was : not fully returned who has difficulty in standing. M7 PT-IP Assessment and Plan Start: 06/29/20 14:02 Freq: NEEDED Status: Active Protocol: Document 06/29/20 16:26 HH (Rec: 06/29/20 16:52 HH [email or web address]) PT Summary Assessment and Plan Potential Rehabilitation Potential Excellent Status of Condition at Evaluation Stable Summary Impairments Pain,ROM,Strength,Balance,Bed Mobility,Transfers,Gait, Activity Tolerance Assessment Summary This is a low complexity evaluation for this 75 yo male s/p POD0 R OBED with posterior approach. PLOF= completely independent without AD for mobility and ADLs/IADLs. CLOF= pt's sensation was not fully returned but able to complete supine leg press against therapist. However, pt's RLE was very unstable d/t anesthesia effect therefore, he only completed 1 STS but needed min A for knee block. He returned to bed after. Will cont assess pt for d/c planning. But since pt has good PLOF, expect pt to be d/c home with assistance and outpatient PT. This PT notified nursing regarding pt' s not ready for mobility yet. Goals Bed Mobility Goal Standby Assistance Transfer Goal Standby Assistance,Front Wheeled Walker Gait Goal Standby Assistance,Front Wheel Walker Gait Distance 100 Other Goals pt has ramp entry at home. Days to Meet Goals 2 Frequency of Treatment Frequency Of Treatment Twice a Day Treatment Plan Physical Therapy Treatment Plan Bed Mobility Training,Transfer Training,Gait Training, Therapeutic Exercise,Balance Retraining,Post Op Education, Discharge Planning,Hot or Cold Pack,Neuromuscular Re-ed Other Recommendations and Next Treatment review precautions Focus mobility as ryanne with FWW bathroom assess pt has ramp entry Discharge Recommendations PT Discharge Recommendations Home with Assistance, Outpatient PT Transportation Needs at Discharge Private Vehicle
--- NOTE | 2020-06-29 16:55 | PT.IIE ---
Current Diagnoses Unilateral primary osteoarthritis, right hip (06/29/20) Surgery Performed Operation Date: 06/29/20 08:45 Actual Procedures p Total Hip Arthroplasty(Right) - Burton Price MD Surgical History (Last Updated 06/22/20 @ 14:12 by Samra Cooper, RN) History of bladder surgery (~2009) History of esophagogastroduodenoscopy (EGD) (07/20/16) History of hernia repair (1969) History of hernia repair (1986) History of kidney surgery Hx of heart artery stent (2017) Medical History (Last Updated 06/22/20 @ 14:14 by Samra Cooper RN) Anemia Ruiz's esophagus with dysplasia Bladder cancer (04/06/10) Chronic low back pain HLD (hyperlipidemia) Hypertension, essential, benign Kidney stones Osteoarthritis Pneumonia Primary osteoarthritis of knees, bilateral Renal mass, left Physical Therapy Inpatient Evaluation/Re-Eval M1 PT/OT-IP Prior Functional Status Start: 06/29/20 14:02 Freq: NEEDED Status: Active Protocol: Document 06/29/20 14:50 HH (Rec: 06/29/20 14:55 HH [email or web address]) Medical Review Prior Functional Status Medical History Reviewed Yes Diet/Fluid Consistency Regular Communication no deficits noted. able to make needs known Mobility and Gait independent for all mobility at home and community without AD. Uses SPC occasionally for long distance walks. Activities of Daily Living and IADL's independent with all ADLs and IADLs without AD. Able to drive Social History Household Members spouse Living Arrangements House Number of Floors (Floors) One Floor Number of Stairs To Enter/Railing? 2 LUIGI no rails, but with ramp entry Home Environment Standard Height Toilet,Walk in Shower,Ramp Home Equipment Straight Cane,Raised Toilet Seat Without Armrests,Long Handled Shoe Horn,Internet Sales Director,Grab Bars In Shower Employment Status Retired Additional Social History Comment Pt lives with his in [place] who is able to assist as needed. Pt's son live here in [place] as well and he does has friends to assist if needed. M2 PT-IP Current Condition Start: 06/29/20 14:02 Freq: NEEDED Status: Active Protocol: Document 06/29/20 16:53 HH (Rec: 06/29/20 16:55 HH [email or web address]) Physical Therapy Current Condition Current Condition Evaluation Date 06/29/20 Treatment Diagnosis R OBED (post approach), difficulty in walking Onset Date 06/29/20 Precautions Posterior Hip Precautions No Hip Flexion > 90 degrees,No Hip Internal Rotation,No Hip Adduction Weight Bearing Status Weight Bearing Status Weight Bear as Tolerated M3 PT-IP Subjective Start: 06/29/20 14:02 Freq: NEEDED Status: Active Protocol: Document 06/29/20 16:26 (Rec: 06/29/20 16:52 [email or web address]) Subjective Physical Therapy Visit Type Type Initial Evaluation Visit Start Time 15:40 Visit Stop Time 16:12 Total Visit Minutes 32 Number of MERCHANDISER RETAIL REPRESENTATIVE Visits 0 Physical Therapy Visit Comments Patient Comments I want to get up and try walking Patient Goals to return home safely with . Therapy Pain Assessment Pain When Pain Assessed During Mobility Pain Present Pain Present Denied Pain M4 PT-IP Mobility and Gait Start: 06/29/20 14:02 Freq: NEEDED Status: Active Protocol: Document 06/29/20 16:26 (Rec: 06/29/20 16:52 [email or web address]) PT-Bed Mobility Assessment Supine to Sit Supine to Sit Contact Guard Assistance, Bedrails Sit to Supine Sit to Supine Minimal Assistance,Bedrails Scooting Scooting to Edge of Bed Contact Guard Assistance PT-Transfer Assessment Sit to and From Stand Sit to and from Stand Minimal Assistance,1 Person Assistance,Use of Upper Extremities Equipment Transfer Assistive Device Gait Belt,Front Wheeled Walker Orthotic/Prosthetic Devices or Brace: No Transfers Transfer Destination Bed Comments Mobility Comments pt was in bed upon PT and SPT arrival. AxOx4. No sensation to touch and pressure from hip to knee joint line but able to perform supine leg press against PT. Proceeded to attempt PT. Pt understood post op precautions. Bed was flattened then educated pt to use L ankle hook to pivot RLE towards L side. Pt was able to complete it but using R handrail to pull. Pt completed few reps of seated leg press against floor. He then attempted to stand up by pushing off from bedside chair armrest. Pt needed PT R knee block to prevent excessive hip IR. Pt stated His R knee was weak and mostly WB through L LE. His R knee was somewhat wobbly and this PT decided not to proceed with amb. Pt stood at bedside and practiced lateral weight shift multiple times and sat down in bed after. He needed min A on RLE for sit to supine. He denies discomfort/ pain during session. SCD in place and activated and call light placed within reach. Gait Assessment Comments Gait Comments see mobility comments and unable to assess. Stair Climbing Assessment Comments Stair Climbing Comments pt has ramp entry. PT-Balance Assessment Sitting Balance and Reactions Static Sitting Balance Ability Normal Dynamic Sitting Balance Ability Normal Standing Balance and Reactions Static Standing Balance Ability Fair Dynamic Standing Balance Ability Fair Device Used FWW Comments Other Balance Tests/Deviations/Treatment Pt's R knee's sensation was : not fully returned who has difficulty in standing. M5 PT-IP Objective Assessments Start: 06/29/20 14:02 Freq: NEEDED Status: Active Protocol: Document 06/29/20 16:53 HH (Rec: 06/29/20 16:55 [email or web address]) Orientation Orientation/Cognition Level of Alertness Alert Orientation Name,Age,Birthday,Month,Date, Year,Day of Week,Place, Situation Language Function Ability No Deficits Noted Safety Awareness Understands Safety Issues Memory Description No Deficits Noted Gross Range of Motion Upper Extremity ROM Assessment Within Functional Limits Lower Extremity ROM Assessment Right Impaired Impairments unable to assess d/t limited sensation at R hip and knee Strength Upper Extremity Strength Assessment Within Functional Limits Lower Extremity Strength Assessment Right Impaired Comments Strength Comments unable to accurately assess d/ t limited sensation at R hip and knee Sensation Assessment Sensation Gross Sensation Right LE Impaired Light Touch Absent Proprioception (Position) Absent Comments Sensation Comments unable to assess d/t limited sensation at R hip and knee. Intact from knee below M6 PT-IP Treatment Start: 06/29/20 14:02 Freq: NEEDED Status: Active Protocol: Document 06/29/20 16:53 HH (Rec: 06/29/20 16:55 [email or web address]) Physical Therapy Treatment Exercises Exercises Ankle Pumps,Gluteal Sets,Quad Sets Education Education Provided Precautions,Weight Bearing Status,Post-Op Packet,Safety M7 PT-IP Assessment and Plan Start: 06/29/20 14:02 Freq: NEEDED Status: Active Protocol: Document 06/29/20 16:26 HH (Rec: 06/29/20 16:52 [email or web address]) PT Summary Assessment and Plan Potential Rehabilitation Potential Excellent Status of Condition at Evaluation Stable Summary Impairments Pain,ROM,Strength,Balance,Bed Mobility,Transfers,Gait, Activity Tolerance Assessment Summary This is a low complexity evaluation for this 75 yo male s/p POD0 R OBED with posterior approach. PLOF= completely independent without AD for mobility and ADLs/IADLs. CLOF= pt's sensation was not fully returned but able to complete supine leg press against therapist. However, pt's RLE was very unstable d/t anesthesia effect therefore, he only completed 1 STS but needed min A for knee block. He returned to bed after. Will cont assess pt for d/c planning. But since pt has good PLOF, expect pt to be d/c home with assistance and outpatient PT. This PT notified nursing regarding pt' s not ready for mobility yet. Goals Bed Mobility Goal Standby Assistance Transfer Goal Standby Assistance,Front Wheeled Walker Gait Goal Standby Assistance,Front Wheel Walker Gait Distance 100 Other Goals pt has ramp entry at home. Days to Meet Goals 2 Frequency of Treatment Frequency Of Treatment Twice a Day Treatment Plan Physical Therapy Treatment Plan Bed Mobility Training,Transfer Training,Gait Training, Therapeutic Exercise,Balance Retraining,Post Op Education, Discharge Planning,Hot or Cold Pack,Neuromuscular Re-ed Other Recommendations and Next Treatment review precautions Focus mobility as ryanne with FWW bathroom assess pt has ramp entry Discharge Recommendations PT Discharge Recommendations Home with Assistance, Outpatient PT Transportation Needs at Discharge Private Vehicle
[2020-06-29] MEDS: CLINDAMYCIN 900 MG/50 ML PIGGYBACK 50 MG IV (17:17)
[2020-06-29] MEDS: DOCUSATE 100 MG CAPSULE PO (20:33)
[2020-06-29] MEDS: lisinopriL 20 MG TABLET 40 MG PO (20:33)
[2020-06-29] MEDS: carvediloL 3.125 MG TABLET 6.25 MG PO (20:34)
[2020-06-29] MEDS: ATORVASTATIN 20 MG TABLET 80 MG PO (20:34)
[2020-06-30 03:24] VITALS: BP 145/94; PULSE 86; RESP 18; TEMP 36.7; O2SAT 96
[2020-06-30] MEDS: PANTOPRAZOLE 20 MG TABLET PO (05:36)
[2020-06-30 06:02] LABS: Hematocrit 37.8 % (41-53); Hemoglobin 12.3 g/dL (13.5-17.5)
--- NOTE | 2020-06-30 06:30 | PC.NURSE ---
Straight cath after bladder scan of 419mL. Removed 375mL urine. Post void scan = 9mL Pt has no urge to urinate. Pt reports sensation continues to return to R leg, he can also raise both legs off bed.
[2020-06-30 07:00] VITALS: BP 152/96; PULSE 83; RESP 16; TEMP 36.6; O2SAT 95
--- NOTE | 2020-06-30 07:36 | PM.PNPO.1 ---
Subjective Subjective Date Patient Seen: 06/30/20 Time Patient Seen: 07:36 Interval history: Postop day 1 status post right total hip arthroplasty with Dr. Price. His pain is well controlled with Tylenol and ibuprofen. The block wore off last night. He has no complaints this morning. Exam Vital Signs (past 8 hours): - 06/29/20 23:58 06/30/20 03:24 Temperature 97.9 F 98.0 F Pulse Rate 91 H 86 Respiratory Rate 18 18 Blood Pressure 135/89 145/94 H Pulse Oximetry 96 96 Oxygen Delivery Method Room Air Oxygen Flow Rate 0 Narrative Exam Narrative: Patient sitting up in bed no acute distress. Alert orient x3. Calves compressible, nontender bilaterally. SCDs on and functioning. Dressing on right hip is CDI. He is able to actively dorsiflex plantar flex. Objective Labs Result Diagrams: 06/30/20 05:50 Labs: Laboratory Results - last 24 hr 06/30/20 05:50 Hgb 12.3 L Hct 37.8 L Assessment & Plan Post-op Postoperative Procedures: Procedures Operation Date: 06/29/20 08:45 Actual Procedures Side Surgeon p Total Hip Arthroplasty Right Burton Price MD Patient will work with physical therapy today. Follow posterior hip precautions. If patient is mobilizing safely he can go home today. Quality VTE Deep Vein Thrombosis/Pulmonary Embolism Present on Admission: No
[2020-06-30] MEDS: carvediloL 3.125 MG TABLET 6.25 MG PO (08:07)
[2020-06-30] MEDS: ASPIRIN EC 81 MG TABLET PO (08:07)
[2020-06-30] MEDS: ACETAMINOPHEN 325 MG TABLET 650 MG PO (08:07)
[2020-06-30] MEDS: AMLODIPINE 5 MG TABLET 10 MG PO (08:07)
[2020-06-30] MEDS: DOCUSATE 100 MG CAPSULE PO (08:07)
--- NOTE | 2020-06-30 08:07 | PT.IPTN ---
Current Diagnoses Unilateral primary osteoarthritis, right hip (06/29/20) Surgery Performed Operation Date: 06/29/20 08:45 Actual Procedures p Total Hip Arthroplasty(Right) - Burton Price MD Physical Therapy Treatment Note M2 PT-IP Current Condition Start: 06/29/20 14:02 Freq: NEEDED Status: Active Protocol: Document 06/29/20 16:53 HH (Rec: 06/29/20 16:55 HH [id number]) Physical Therapy Current Condition Current Condition Evaluation Date 06/29/20 Treatment Diagnosis R OBED (post approach), difficulty in walking Onset Date 06/29/20 Precautions Posterior Hip Precautions No Hip Flexion > 90 degrees,No Hip Internal Rotation,No Hip Adduction Weight Bearing Status Weight Bearing Status Weight Bear as Tolerated M3 PT-IP Subjective Start: 06/29/20 14:02 Freq: NEEDED Status: Active Protocol: Document 06/30/20 07:30 MB (Rec: 06/30/20 08:06 MB [id number]) Subjective Physical Therapy Visit Type Type Treatment Note Visit Start Time 07:30 Visit Stop Time 07:54 Total Visit Minutes [address]/MEDICAL INTERPRETER Visits 0 Physical Therapy Visit Comments Patient Comments I'm ready this morning. I have sensation back in my leg. Therapy Pain Assessment Pain When Pain Assessed During Mobility Pain Present Pain Present Denied Pain M4 PT-IP Mobility and Gait Start: 06/29/20 14:02 Freq: NEEDED Status: Active Protocol: Document 06/30/20 07:30 MB (Rec: 06/30/20 08:06 MB [id number]) PT-Bed Mobility Assessment Supine to Sit Supine to Sit Bedrails Scooting Scooting to Edge of Bed Standby Assistance PT-Transfer Assessment Sit to and From Stand Sit to and from Stand Standby Assistance,1 Person Assistance,Use of Upper Extremities Equipment Transfer Assistive Device Gait Belt,Front Wheeled Walker Orthotic/Prosthetic Devices or Brace: No Transfers Transfer Destination Chair Transfer Ability Level of Assist Contact Guard Assistance Comments Mobility Comments Pt uses left foot hooked under right ankle to scoot right leg to the side of the bed. He has heavy UE asst to move to EOB and to move from sit to supine. Cues to push up from the bed and not reach for walker. Pt recalls 2/3 posterior right hip precautions and PT has to cue on no IR Gait Assessment Gait Gait Assistance Required: Standby Assistance,Contact Guard Assist,1 Person Assist Distance (Feet) 100 Able to Maintain Weight Bearing Status Yes During Gait Assistive Devices Assistive Device Gait Belt,Front Wheeled Walker Orthotic/Prosthetic Devices or Brace: No Gait Deviations General Gait Pattern Antalgic,Decreased Stride Length,Decreased Feet Clearance,Step-to Gait Factors Limiting Gait Function Factors Limiting Gait Function Decreased Strength Comments Gait Comments Pt gait trains without pain and light-headedness in room and then progressed gait distance to hallway and return back to chair. Step-to pattern right then left foot with right foot mildly turned in (anatomically positioned this way) and right hip higher than the left. No LOB, good use of his walker, slow homero Stair Climbing Assessment Comments Stair Climbing Comments Ramp to enter, can drive car 10 feet from ramp M5 PT-IP Objective Assessments Start: 06/29/20 14:02 Freq: NEEDED Status: Active Protocol: Document 06/29/20 16:53 HH (Rec: 06/29/20 16:55 HH [id number]) Orientation Orientation/Cognition Level of Alertness Alert Orientation Name,Age,Birthday,Month,Date, Year,Day of Week,Place, Situation Language Function Ability No Deficits Noted Safety Awareness Understands Safety Issues Memory Description No Deficits Noted Gross Range of Motion Upper Extremity ROM Assessment Within Functional Limits Lower Extremity ROM Assessment Right Impaired Impairments unable to assess d/t limited sensation at R hip and knee Strength Upper Extremity Strength Assessment Within Functional Limits Lower Extremity Strength Assessment Right Impaired Comments Strength Comments unable to accurately assess d/ t limited sensation at R hip and knee Sensation Assessment Sensation Gross Sensation Right LE Impaired Light Touch Absent Proprioception (Position) Absent Comments Sensation Comments unable to assess d/t limited sensation at R hip and knee. Intact from knee below M6 PT-IP Treatment Start: 06/29/20 14:02 Freq: NEEDED Status: Active Protocol: Document 06/30/20 07:30 MB (Rec: 06/30/20 08:06 MB [id number]) Physical Therapy Treatment Exercises Exercises Ankle Pumps Education Education Provided Precautions,Weight Bearing Status,Safety M7 PT-IP Assessment and Plan Start: 06/29/20 14:02 Freq: NEEDED Status: Active Protocol: Document 06/30/20 07:30 MB (Rec: 06/30/20 08:06 MB [id number]) PT Summary Assessment and Plan Potential Rehabilitation Potential Excellent Status of Condition at Evaluation Stable Summary Impairments ROM,Strength,Balance,Bed Mobility,Transfers,Gait, Activity Tolerance Progress Towards Goals Progressing Toward Goals Assessment Summary Pt progressed with gait and transfers today. Per nsg, pt is to d/c today. Pt states that if he is d/cd before PT has second treatment of the day, he feels ready to do it. His is not available at this early hour to observe PT treatment and education. Con't PT as able in the acute setting. Goals Bed Mobility Goal Independent Transfer Goal Independent,Front Wheeled Walker Gait Goal Independent,Front Wheel Walker Gait Distance 200 Days to Meet Goals 1 Frequency of Treatment Frequency Of Treatment Twice a Day Treatment Plan Physical Therapy Treatment Plan Bed Mobility Training,Transfer Training,Gait Training, Therapeutic Exercise,Balance Retraining,Post Op Education, Discharge Planning,Hot or Cold Pack,Neuromuscular Re-ed Discharge Recommendations PT Discharge Recommendations Home with Assistance, Outpatient PT Transportation Needs at Discharge Private Vehicle
--- NOTE | 2020-06-30 08:17 | CM.DANOTE ---
Addendum entered by Cathy Messina LPN 06/30/20 12:54: A check in now shows that pt did d/c to home in company of family as per his plan and after being cleared by PT. Addendum entered by Cathy Messina LPN 06/30/20 08:23: A review of ortho ANDREW Lemon's progress note does say that pt will continue with with PT today and d/c to home when cleared by PT for that setting. Original Note: Discharge Planning/Care Management DCP: assessment: case received, EMR reviewed. DC to home order noted. PT is a 75 year old malel who admitted yesterday for a scheduled R hip surgery. Surgeon: Dr. Price PCP: DR. Bourgeois Payer: [facility] Елена PT has worked with pt and notes indicate he is on track for his pre-op plan of home with family support and OUTPT therapy. Note that he did need straight-cath this morning for a PVR of about 500 cc urine. Will discuss in team rounds and follow accordingly. CM Discharge Assessment Start: 06/30/20 08:16 Freq: Status: Active Protocol: Document 06/30/20 08:16 ITV (Rec: 06/30/20 08:17 ITV [id number]) Discharge Planning Assessment Advance Directives? No History Provided By Medical Record Prior Living Arrangements House Household Members spouse Independent with ADL's Yes Is patient alert and oriented? Yes Pre-Anesthesia Assessment Start: 06/22/20 13:48 Freq: Status: Active Protocol: Document 06/22/20 13:48 CAB (Rec: 06/22/20 14:40 CAB [id number]) Pre-Anesthesia Assessment Preferred Name Juan Patient Information Reviewed Via Phone Assessment Assessment Completed With Patient Diagnostic Results BMP/CMP,CBC,EKG Comment Labs/EKG @ [facility], COVID screen @ [facility] 06/27/20 Primary Care Provider Griffin Bourgeois Medical Clearance Received Yes Seen Specialist in Last 12 Months Yes Specialist Seen Solid Plasterer,Orthopedist, Urologist Primary Language Sudanese Court Registry Officer Required No Height 193.04 cm Weight 106.594 kg Body Mass Index (BMI) 28.5 Hearing Ability Normal Visual Assist Glasses Dentition Type Teeth, Natural Present Barriers to Learning None Hx Anesthesia Reactions No Hx Family Anesthesia Reaction No Hx Malignant Hyperthermia No Hx Blood Transfusions Yes: r/t anemia 2018 Hx Blood Transfusion Reaction No Anesthesia Review Requested No alcohol intake current alcohol intake frequency holidays/special occasions only Smoking Status Former smoker how long ago did patient quit smoking Quit in the Substance Use Type does not use Pain Present Pain Reported Musculoskeletal Symptoms Abnormal Gait,Back Pain, Difficulty Walking,Joint Pain History of Falling (Recent or History of No ) Patient is completely paralyzed or No completely immobile Prosthesis or Orthotic Device Cane Mental Status Oriented to own ability Is patient on oxygen? No Does patient have CASTANON/SOB No Hx Sleep Apnea No Currently Taking a Beta Pamella Yes: Carvedilol Can You Climb a Flight of Stairs Without Yes SOB Hx Chest Pain No Hx SOB No Hx Syncope or Dizziness No Anti-Coagulant Therapy Yes: ASA-pt advised to continue per Dr. Price Has a Solid Plasterer Yes: Dr. Orozco-last visit 05/12/20 Cardiac Testing No Hx Pacemaker/ICD No Pacemaker Rep Required? No Cardiac Clearance Received Yes Comment Currently works out 4 days/ week on an [employer] Additional comment Cardiac records scanned Diet Type At Home Regular dysphagia No: Ruiz's esophagus w/high grade dysplasia Bladder Pattern Nocturia Urinary Catheter Present No Hx Urinary Self Catheterization No Diabetes No Hx Drug Resistant Organism No Presence of External or Internal Medical Yes: Cardiac stents x 2 Devices Have you had any close contact with No someone diagnosed with COVID-19? Marital Status Lives With spouse Prior Living Arrangements House Number of Floors (Floors) One Floor Support System Spouse Does the Patient Have Assistance After Yes Surgery Patient Discharge Plan Description Return Home Comment Pt advised overnight length of stay per surgeon Feels Safe in Current Environment Yes Been Physically Hurt or Threatened By a No Person in Current Environment Do you have thoughts of harming yourself None or others? Are you currently considering suicide? No Do you have a plan to hurt yourself or No Plan others? Do You Have Any Spiritual Beliefs That No May Affect Your HC Choices? Do You Have Any Cultural Practices That No May Affect Your HC Choices? Who Can We Speak to About Patient's Care Family, friends Identifying Code for Release of Patient Declines to issue Information Health Care Proxy/Next of Kin Ewa () Lia(son) Health Care Proxy Phone Number Ewa: [phone] Pat: [phone] Emergency Contact Name Ewa () Lia(son) Emergency Contact Phone Number Ewa: [phone] Pat: Advance Directives? No Power of Heater Tender No PAC Instructions Durable medical equipment, Medications to take/avoid, Nasal antibiotic,No ETOH/ petroleum product on skin DOS, NPO,Post-op transportation,Pre -surgical wash,Sturdy shoes/ comfortable clothes,Do not bring valuables and remove jewelry
--- NOTE | 2020-06-30 09:31 | PC.NURSE ---
Assess- Patient is awake and worked with physical therapy, he has feeling to both of his lower extremities. Juan is showering now, dressing will be changed when he is out to semi water proof dressing. CMS wnl and ppx2.
== END 2020-06-30 11:20 | disposition home or self-care (01) ==
LOC: OR 07:23 → AC 07:24
PROVIDERS: Family Provider Family Medicine; PCP Family Medicine; Referring Provider Family Medicine; Visit Provider Orthopaedic Surgery
PROC: 0SR90JZ Replacement of Right Hip Joint with Synthetic Substitute, Open Approach (ICD-10-PCS; CPT 27130; principal; 2020-06-29 08:45)
DX: M16.11 Unilateral primary osteoarthritis, right hip (principal); I10 Essential (primary) hypertension; E78.5 Hyperlipidemia, unspecified; I25.10 Atherosclerotic heart disease of native coronary artery without angina pectoris
CPT/HCPCS: 27130; 36415; 72170; 85014; 85018; 97116; 97161; 97530; C1776; J1100; J1885; J2250; J2270; J2274; J2405; J2704; J3010

== ENCOUNTER → 2020-09-09 09:05 | Outpatient (CLI) | payer MEDICARE, SELFPAY ==
[2020-06-29 13:35] VITALS: BMI 27.8
[2020-09-09] MEDS: COVID-19 VACC #1, MRNA(MOD) 100 MCG/0.5 ML VIAL IM (09:12)
== END ==
PROVIDERS: Family Provider Family Medicine; PCP Family Medicine; Visit Provider Internal Medicine
DX: Z23 Encounter for immunization (principal)
CPT/HCPCS: 0011A; 91301

== ENCOUNTER → 2020-10-07 09:07 | Outpatient (CLI) | payer MEDICARE, SELFPAY ==
[2020-06-29 13:35] VITALS: BMI 27.8
[2020-10-07] MEDS: COVID-19 VACC #2, MRNA(MOD) 100 MCG/0.5 ML VIAL IM (09:15)
== END ==
PROVIDERS: Family Provider Family Medicine; PCP Family Medicine; Visit Provider Internal Medicine
DX: Z23 Encounter for immunization (principal)
CPT/HCPCS: 0012A; 91301

== ENCOUNTER → 2021-05-22 08:57 | Outpatient (CLI) | payer OTHER, SELFPAY ==
[2020-06-29 13:35] VITALS: BMI 27.8
[2021-05-22 09:28] LABS: Add Manual Diff / Slide Review NO; Basophils Absolute Auto 100 /uL (0-100); Eosinophils Absolute Auto 400 /uL (0-450); Eosinophils Percent Auto 4.7 % (2-4); Hematocrit 42.2 % (41-53); Hemoglobin 13.6 g/dL (13.5-17.5); Lymphocytes Absolute Auto 2200 /uL (1100-4500); Lymphocytes Percent Auto 29.2 % (25-40); Mean Corpuscular HGB Conc 32.3 % (30-36); Mean Corpuscular Hemoglobin 27.2 PG (26-34); Mean Corpuscular Volume 84.3 fL (80-100); Monocytes Absolute Auto 1200 /uL (0-900); Neutrophils Absolute Auto 3600 /uL (1500-7000); Neutrophils Percent Auto 49.1 % (50-75); Platelet Count 293 X10^3/uL (150-400); Red Blood Cell Count 5.01 X10^6/uL (4.5-5.9); Red Cell Distribution Width 16.2 % (11.6-14.8); White Blood Cell Count 7.4 X10^3/uL (4.5-11.0)
[2021-05-22 10:13] LABS: BUN Creatinine Ratio 15.8 (6-22); Blood Urea Nitrogen 18 mg/dL (9-20); Calcium 10.5 mg/dL (8.4-10.2); Carbon Dioxide 27 mmol/L (22-32); Chloride 107 mmol/L (98-107); Cholesterol 169 mg/dL (140-199); Estimated Glomerular Filt Rate > 60.0 mL/min (>60); Glucose 109 mg/dL (80-110); HDL Cholesterol 75 mg/dL (40-60); HEMOLYSIS < 15 (0-50); LDL Cholesterol Calculated 75 mg/dL (<100); Potassium 4.6 mmol/L (3.4-5.1); Sodium 141 mmol/L (137-145); Triglycerides 94 mg/dL (35-150)
== END ==
PROVIDERS: Family Provider Family Medicine; PCP Family Medicine; Referring Provider Internal Medicine Cardiovascular Disease; Visit Provider Internal Medicine Cardiovascular Disease
DX: E78.5 Hyperlipidemia, unspecified (principal)
CPT/HCPCS: 36415; 80048; 80061; 85025

== ENCOUNTER → 2021-11-27 08:16 | Outpatient (CLI) | payer OTHER, SELFPAY ==
[2020-06-29 13:35] VITALS: BMI 27.8
== END ==
PROVIDERS: Family Provider Family Medicine; PCP Family Medicine; Visit Provider Student in an Organized Health Care Education/Training Program
DX: R30.0 Dysuria (principal)
CPT/HCPCS: 87086

== ENCOUNTER 2021-12-01 13:57 | Emergency (ER) | payer OTHER, SELFPAY ==
[2020-06-29 13:35] VITALS: BMI 27.8
[2021-12-01 14:24] VITALS: BP 160/100; PULSE 61; RESP 18; TEMP 36.8; O2SAT 98; BMI 26.2
--- NOTE | 2021-12-01 14:34 | DI.RAD.S_ITS ---
PROCEDURE: XR CHEST 1V INDICATIONS: chest pain TECHNIQUE: One view of the chest was acquired. COMPARISON: [facility], CR, XR CHEST 2V, 09/01/2019, 9:45. FINDINGS: Surgical changes and devices: None. Lungs and pleura: Lungs are clear. No pleural effusions or pneumothorax. Mediastinum: Mediastinal contours appear normal. Heart size is normal. Moderate hiatal hernia. Atherosclerotic vascular calcification noted in the aortic arch. Bones and chest wall: No suspicious bony lesions. Overlying soft tissues appear unremarkable. IMPRESSION: No acute cardiopulmonary findings Probable hiatal hernia Approved by: Andrés Sherman M.D. on 12/01/2021 at 14:32
[2021-12-01 14:52] LABS: Add Manual Diff / Slide Review NO; Basophils Absolute Auto 100 /uL (0-100); Basophils Percent Auto 1.3 % (0-2); Eosinophils Absolute Auto 100 /uL (0-450); Eosinophils Percent Auto 1.9 % (2-4); Hematocrit 40.7 % (41-53); Hemoglobin 13.4 g/dL (13.5-17.5); Lymphocytes Absolute Auto 1300 /uL (1100-4500); Lymphocytes Percent Auto 16.3 % (25-40); Mean Corpuscular Volume 81.7 fL (80-100); Monocytes Absolute Auto 900 /uL (0-900); Neutrophils Absolute Auto 5300 /uL (1500-7000); Neutrophils Percent Auto 68.5 % (50-75); Platelet Count 287 X10^3/uL (150-400); Red Blood Cell Count 4.98 X10^6/uL (4.5-5.9); Red Cell Distribution Width 16.1 % (11.6-14.8); White Blood Cell Count 7.7 X10^3/uL (4.5-11.0)
[2021-12-01 15:04] LABS: Alanine Aminotransferase 20 IU/L (<50); Albumin 4.2 g/dL (3.5-5.0); Albumin Globulin Ratio 1.2 (1.0-2.8); Alkaline Phosphatase 80 U/L (38-126); Aspartate Aminotransferase 26 IU/L (17-59); BUN Creatinine Ratio 20.7 (6-22); Bilirubin Total 0.9 mg/dL (0.2-1.3); Blood Urea Nitrogen 18 mg/dL (9-20); Calcium 9.8 mg/dL (8.4-10.2); Carbon Dioxide 24 mmol/L (22-32); Chloride 110 mmol/L (98-107); Creatine Kinase 58 U/L (55-170); Estimated Glomerular Filt Rate > 60 mL/min (>60); Globulin 3.4 g/dL (1.7-4.1); Glucose 129 mg/dL (80-110); HEMOLYSIS < 15 (0-50); Lipase 87 U/L (23-300); Magnesium 2.1 mg/dL (1.6-2.3); Potassium 4.1 mmol/L (3.4-5.1); Sodium 140 mmol/L (137-145); Total Protein 7.6 g/dL (6.3-8.2)
[2021-12-01 15:15] LABS: Troponin I < 0.012 ng/mL (0.01-0.034)
--- NOTE | 2021-12-01 20:07 | PC.NURSE ---
pt states he has been waking up with dizziness x 3 weeks states the dizziness abates as the day goes along, feels like I'm going to go down pt has apt with pcp tomorrow but the dizziness increased in severity today, pt has also noted blood in his urine. denies any other s/s
[2021-12-01 20:09] VITALS: PULSE 72; O2SAT 94
[2021-12-01 20:27] LABS: COVID19 -Nasal RAPID Negative (Negative)
[2021-12-01 20:30] VITALS: BP 175/106; PULSE 77; O2SAT 99
--- NOTE | 2021-12-01 20:42 | ED_ITS ---
HPI - General Adult General Chief complaint: Dizziness Stated complaint: feeling weak and faint last three days Time Seen by Provider: 12/01/21 19:59 Source: patient and family Mode of arrival: Wheelchair History of Present Illness HPI narrative: 76-year-old male who is here for evaluation of approximately 1 month of having increased fatigue and weakness. Earlier this week he started on antibiotic for presumed urinary tract infection however stopped it after just 2 days because the urine culture did not show any signs of infection. He has had a history of bladder cancer. Is scheduled to have a cystoscopy in the coming days/weeks. He started have some blood in his urine. He states that for the past several weeks he has had issues with fatigue specifically in the morning. He states that normally as the day goes on his symptoms improved but he really has not felt normal in quite some time. Earlier today symptoms seem to be much worse as he was very fatigued this morning and also have him some nausea and vomiting. Those symptoms seem to have improved he has had a sleep study in the past but that was a couple years ago but he does not have a diagnosis of sleep apnea. He has been eating and drinking like normal however his states that may not be 100% accurate and she states he has had some weight loss over the past several weeks. Related Data Home Medications Medication Instructions Recorded Confirmed atorvastatin 80 mg tablet 80 mg PO BEDTIME 05/08/18 11/27/21 carvedilol 6.25 mg tablet 6.25 mg PO BID 05/08/18 11/27/21 amlodipine 10 mg tablet 10 mg PO DAILY 06/22/20 11/27/21 esomeprazole magnesium 20 mg 20 mg PO DAILY 06/22/20 11/27/21 capsule,delayed release (Nexium) lisinopril 20 mg tablet 40 mg PO BEDTIME 06/22/20 11/27/21 aspirin 81 mg tablet,delayed 81 mg PO DAILY 11/27/21 11/27/21 release (Adult Low Dose Aspirin) ezetimibe 10 mg tablet 10 mg PO DAILY 11/27/21 11/27/21 Previous Rx's Medication Instructions Recorded acetaminophen 325 mg tablet 650 mg PO TID #60 tab 06/30/20 aspirin 81 mg tablet,delayed 81 mg PO BID #60 tab 06/30/20 release (Adult Aspirin Regimen) docusate sodium 100 mg capsule 100 mg PO BID #60 cap 06/30/20 (DOK) ciprofloxacin HCl 500 mg tablet 500 mg PO BID 10 Days #20 tab 11/27/21 Allergies Allergy/AdvReac Type Severity Reaction Status Date / Time Penicillins [PENICILLINS] Allergy Intermediate Hives Verified 11/27/21 08:20 Review of Systems Review of Systems ROS Unobtainable: All systems reviewed & are unremarkable except as noted in HPI and below Patient History Medical History Anemia Ruiz's esophagus with dysplasia Bladder cancer (04/06/10) Chronic low back pain HLD (hyperlipidemia) Hypertension, essential, benign Kidney stones Osteoarthritis Pneumonia Primary osteoarthritis of knees, bilateral Renal mass, left Surgical History (Updated 06/22/20 @ 14:12 by Samra Cooper RN) History of bladder surgery (~2009) History of esophagogastroduodenoscopy (EGD) (07/20/16) History of hernia repair (1969) History of hernia repair (1986) History of kidney surgery Hx of heart artery stent (2017) Social History marital status: household members: spouse Smoking Status: Never smoker alcohol intake: current substance use type: does not use Smoking Status: Never smoker alcohol intake frequency: holidays/special occasions only Alcohol type: beer Substance Use Type: does not use Exam Initial Vital Signs Initial Vital Signs: Vital Signs Temperature 98.2 F 12/01/21 14:24 Pulse Rate 61 12/01/21 14:24 Respiratory Rate 18 12/01/21 14:24 Blood Pressure 160/100 H 12/01/21 14:24 Pulse Oximetry 98 12/01/21 14:24 Const General: cooperative, healthy appearing, comfortable and well developed [facility] Head: normal to inspection and normocephalic Eyes General: appearance normal, both eyes and all related structures Chest Chest: normal inspection of the chest Resp Effort & Inspection: normal respiratory effort Auscultation: clear to auscultation bilaterally Cardio Rate: regular rate Rhythm: regular rhythm GI Inspection: normal to inspection Palpation: soft and No tender Skin General: no rashes or lesions noted Neuro General: patient alert, patient awake, patient oriented x3 and moves all extremities Extrem General: normal to inspection and capillary refill normal Psych Appearance: grossly normal and well kempt Course Orders Ordered: ED Orders 12/01/21 19:58 COVID19 -Nasal RAPID/Pre-Proc Stat Urinalysis and Microscopic Stat Discontinued Medications Ondansetron HCl (Ondansetron 4 Mg Odt Prepack) 1 bottle MISC SEEINSTR ONE Stop: 12/01/21 20:43 Last Admin: 12/01/21 20:48 Dose: 1 bottle Documented by: AIMEE Vital Signs Vital signs: Vital Signs - 8 hr 12/01/21 20:09 12/01/21 20:30 Pulse Rate 72 77 Blood Pressure 175/106 H Pulse Oximetry 94 99 Medical Decision Making Lab Data Lab results reviewed: Yes I reviewed the patient's lab results. Result diagrams: 12/01/21 14:40 12/01/21 14:40 Labs: Lab Results 12/01/21 12/01/21 12/01/21 Range/Units 14:40 14:40 14:40 WBC 7.7 (4.5-11.0) X10^3/uL RBC 4.98 (4.5-5.9) X10^6/uL Hgb 13.4 L (13.5-17.5) g/dL Hct 40.7 L (41-53) % MCV 81.7 (80-100) fL MCH 27.0 (26-34) PG MCHC 33.0 (30-36) % RDW 16.1 H (11.6-14.8) % Plt Count 287 (150-400) X10^3/uL Neut % (Auto) 68.5 (50-75) % Lymph % (Auto) 16.3 L (25-40) % [place] % (Auto) 12.0 (3-14) % Eos % (Auto) 1.9 L (2-4) % Baso % (Auto) 1.3 (0-2) % Neut # (Auto) 5300 (8690-0544) /uL Lymph # (Auto) 1300 (4384-8579) /uL [place] # (Auto) 900 (0-900) /uL Eos # (Auto) 100 (0-450) /uL Baso # (Auto) 100 (0-100) /uL Sodium 140 (137-145) mmol/L Potassium 4.1 (3.4-5.1) mmol/L Chloride 110 H (98-107) mmol/L Carbon Dioxide 24 (22-32) mmol/L BUN 18 (9-20) mg/dL Creatinine 0.87 (0.66-1.25) mg/dL Estimated GFR > 60 (>60) mL/min BUN/Creatinine Ratio 20.7 (6-22) Glucose 129 H (80-110) mg/dL Calcium 9.8 (8.4-10.2) mg/dL Magnesium 2.1 (1.6-2.3) mg/dL Total Bilirubin 0.9 (0.2-1.3) mg/dL AST 26 (17-59) IU/L ALT 20 (<50) IU/L Alkaline Phosphatase 80 (38-126) U/L Total Creatine Kinase 58 (55-170) U/L CK-MB (CK-2) TNP CK-MB (CK-2) Rel Index TNP Troponin I < 0.012 (0.01-0.034) ng/mL Total Protein 7.6 (6.3-8.2) g/dL Albumin 4.2 (3.5-5.0) g/dL Globulin 3.4 (1.7-4.1) g/dL Albumin/Globulin Ratio 1.2 (1.0-2.8) Lipase 87 (23-300) U/L Urine Color Urine Appearance Urine pH (4.5-8.0) Ur Specific [employer] (1.000-1.035) Urine Protein (Negative) Urine Glucose (UA) (Negative) g/dL Urine Ketones (NEGATIVE) Urine Occult Blood (Negative) Urine Nitrate (Negative) Urine Bilirubin (NEGATIVE) Urine Urobilinogen (0.2) E.U./dL Ur Leukocyte Esterase (NEGATIVE) Urine RBC (0-5/HPF) Urine WBC (0-5/HPF) Urine Bacteria (None) Urine Mucus (Negative) Ur Culture Indicated? SARS-CoV-2 (PCR) (Negative) Monoscreen Negative (Negative) 12/01/21 12/01/21 Range/Units 19:58 19:58 WBC (4.5-11.0) X10^3/uL RBC (4.5-5.9) X10^6/uL Hgb (13.5-17.5) g/dL Hct (41-53) % MCV (80-100) fL MCH (26-34) PG MCHC (30-36) % RDW (11.6-14.8) % Plt Count (150-400) X10^3/uL Neut % (Auto) (50-75) % Lymph % (Auto) (25-40) % [place] % (Auto) (3-14) % Eos % (Auto) (2-4) % Baso % (Auto) (0-2) % Neut # (Auto) (4500-1441) /uL Lymph # (Auto) (6222-1444) /uL [place] # (Auto) (0-900) /uL Eos # (Auto) (0-450) /uL Baso # (Auto) (0-100) /uL Sodium (137-145) mmol/L Potassium (3.4-5.1) mmol/L Chloride (98-107) mmol/L Carbon Dioxide (22-32) mmol/L BUN (9-20) mg/dL Creatinine (0.66-1.25) mg/dL Estimated GFR (>60) mL/min BUN/Creatinine Ratio (6-22) Glucose (80-110) mg/dL Calcium (8.4-10.2) mg/dL Magnesium (1.6-2.3) mg/dL Total Bilirubin (0.2-1.3) mg/dL AST (17-59) IU/L ALT (<50) IU/L Alkaline Phosphatase (38-126) U/L Total Creatine Kinase (55-170) U/L CK-MB (CK-2) CK-MB (CK-2) Rel Index Troponin I (0.01-0.034) ng/mL Total Protein (6.3-8.2) g/dL Albumin (3.5-5.0) g/dL Globulin (1.7-4.1) g/dL Albumin/Globulin Ratio (1.0-2.8) Lipase (23-300) U/L Urine Color Yellow Urine Appearance Cloudy Urine pH 5.0 (4.5-8.0) Ur Specific [employer] 1.025 (1.000-1.035) Urine Protein Trace H (Negative) Urine Glucose (UA) Trace H (Negative) g/dL Urine Ketones Trace H (NEGATIVE) Urine Occult Blood 3+ H (Negative) Urine Nitrate Negative (Negative) Urine Bilirubin Negative (NEGATIVE) Urine Urobilinogen 0.2 (0.2) E.U./dL Ur Leukocyte Esterase Negative (NEGATIVE) Urine RBC 30-100/hpf H (0-5/HPF) Urine WBC 0-1/hpf (0-5/HPF) Urine Bacteria None seen (None) Urine Mucus 2+ H (Negative) Ur Culture Indicated? Cult not indicated SARS-CoV-2 (PCR) Negative (Negative) Monoscreen (Negative) Imaging Data Chest x-ray: Radiologist's Impression: [address] [id number] XRay Report Signed Patient: Alonzo Goncalves MR#: [id number] : 1945 Acct:[id number] Age/Sex: 76 / M Date of Service: 12/01/21 Loc: ED Accession Number: [id number] ?? Procedure: XR chest 1V Ordering Provider: Cheri Her D.O. PROCEDURE:? XR CHEST 1V ? INDICATIONS:? chest pain ? TECHNIQUE:? One view of the chest was acquired.? ? COMPARISON:? [facility], CR, XR CHEST 2V, 09/01/2019, 9:45. ? FINDINGS:? ? Surgical changes and devices:? None.? ? Lungs and pleura:? Lungs are clear.? No pleural effusions or pneumothorax.? ? Mediastinum:? Mediastinal contours appear normal.? Heart size is normal.? M oderate hiatal hernia. Atherosclerotic vascular calcification noted in the aortic arch. ? Bones and chest wall:? No suspicious bony lesions.? Overlying soft tissues appear unremarkable.? ? IMPRESSION:? ? No acute cardiopulmonary findings Probable hiatal hernia ? ? ? Approved by: Andrés Sherman M.D. on 12/01/2021 at 14:32? ECG Data Attestation: I personally reviewed and interpreted this ECG as follows: Interpretation: Sinus rhythm Ventricular rate is 60 Normal axis Normal QRS Normal QTC No ST T wave changes MDM Narrative Medical decision making narrative: Patient reports that his symptoms have improved somewhat since this morning. He has been suffering from fatigue specifically in the morning for several weeks now. He is scheduled for follow-up of his hematuria. His labs are unremarkable. No signs of infection. Have a low suspicion for TIA or CVA given his presentation muscle have low suspicion for ACS. I feel we can hold on further workup for now patient can be safely discharged home with his current plan for follow-up. With he and his were given specific return precautions. They expressed understanding and agreement plan. Discharge Plan Departure Patient Disposition: Home Clinical Impression: Fatigue, Nausea Instructions: DI for Fatigue, DI for Dizziness-Nonvertigo Activity Restrictions/Additional Instructions: I do recommend that you keep all of your scheduled medical appointments. Continue to take all of your medications as directed. Return to the emergency department for any new or worsening symptoms. Prescriptions: No Action aspirin [Adult Low Dose Aspirin] 81 mg tablet,delayed release (DR/EC) 81 mg PO DAILY 0RF ezetimibe 10 mg tablet 10 mg PO DAILY 0RF ciprofloxacin HCl 500 mg tablet 500 mg PO BID 10 Days Qty: 20 0RF atorvastatin 80 mg tablet 80 mg PO BEDTIME 0RF carvedilol 6.25 mg tablet 6.25 mg PO BID 0RF esomeprazole magnesium [Nexium] 20 mg Capsule,Delayed Release(Dr/Ec) 20 mg PO DAILY 0RF lisinopril 20 mg tablet 40 mg PO BEDTIME 0RF amlodipine 10 mg Tablet 10 mg PO DAILY 0RF acetaminophen 325 mg Tablet 650 mg PO TID Qty: 60 0RF docusate sodium [DOK] 100 mg Capsule 100 mg PO BID Qty: 60 0RF aspirin [Adult Aspirin Regimen] 81 mg tablet,delayed release (DR/EC) 81 mg PO BID Qty: 60 0RF Referrals: Griffin Bourgeois MD [Primary Care Provider] -
[2021-12-01] MEDS: ONDANSETRON 4 MG ODT PREPACK 1 BOTTLE MISC (20:48)
[2021-12-01 20:59] LABS: Appearance Urine UA CLOUDY; Bilirubin Urine UA NEGATIVE (NEGATIVE); Color Urine UA YELLOW; Glucose Urine UA TRACE g/dL (Negative); Ketones Urine UA TRACE (NEGATIVE); Leukocyte Esterase Urine UA NEGATIVE (NEGATIVE); Nitrite Urine UA NEGATIVE (Negative); Occult Blood Urine UA 3+ (Negative); Protein Urine UA TRACE (Negative); Specific Gravity Urine UA 1.025 (1.000-1.035); Urobilinogen Urine UA 0.2 E.U./dL (0.2)
[2021-12-01 21:02] LABS: Bacteria Urine None Seen; Culture Indicated Urine Cult Not Indicated; Mucus Urine 2+ (Negative); RBC Urine 30-100/HPF (0-5/HPF); WBC Urine 0-1/HPF (0-5/HPF)
[2021-12-01 21:05] LABS: Monotest Negative (Negative)
== END 2021-12-01 20:53 | disposition home or self-care (01) ==
PROVIDERS: Emergency Medicine; Emergency Provider Emergency Medicine; Family Provider Family Medicine; PCP Family Medicine
DX: R53.83 Other fatigue (principal); R11.2 Nausea with vomiting, unspecified; R31.9 Hematuria, unspecified; I10 Essential (primary) hypertension; Z20.822 Contact with and (suspected) exposure to COVID-19
CPT/HCPCS: 36415; 71045; 80053; 81001; 82550; 83690; 83735; 84484; 85025; 86318; 87635; 93005; 99283; 99284; C9803

== ENCOUNTER 2021-12-05 19:17 | Emergency (ER) | payer OTHER, SELFPAY ==
[2020-06-29 13:35] VITALS: BMI 27.8
[2021-12-05] VITALS (12 sets, daily range): BP systolic 163–200; BP diastolic 82–114; PULSE 65–74; RESP 11–29; TEMP 36.7; O2SAT 95–100
--- NOTE | 2021-12-05 19:42 | ED.RECABL ---
HPI - Recheck/Abnormal Lab/Rx General Chief Complaint: Recheck/Abnormal Lab/Rx Stated Complaint: unable to eat or drink Time Seen by Provider: 12/05/21 19:28 Source: patient Mode of arrival: Wheelchair History of Present Illness HPI narrative: Patient is a 76-year-old male with history of hypertension presenting today with dizziness and vomiting. He was seen and evaluated earlier this week on 12/01/2021 and then followed up with his primary care provider on a yesterday. He has been feeling weak a little bit off balance. He had workup of laboratory tests x-ray EKG in the emergency department he was found to have some mild hematuria. He says that that has actually improved. However last night every time he is sat up stood up return does head to the left he got extremely dizzy and he has vomited 3 times. is concerned that he is extremely dehydrated. He denies any chest pain palpitations. He has no numbness tingling or weakness. He denies any abdominal pain no fever or chills. He does have a history of bladder cancer as well. Patient has actually had some weakness and dizziness ongoing for about 1 month but it has gotten significantly the last 1 week. Denies any headache, or difficulty walking. 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 Related Data Home Medications Medication Instructions Recorded Confirmed atorvastatin 80 mg tablet 80 mg PO BEDTIME 05/08/18 12/04/21 carvedilol 6.25 mg tablet 6.25 mg PO BID 05/08/18 12/04/21 amlodipine 10 mg tablet 10 mg PO DAILY 06/22/20 12/04/21 esomeprazole magnesium 20 mg 20 mg PO DAILY 06/22/20 12/04/21 capsule,delayed release (Nexium) lisinopril 20 mg tablet 40 mg PO BEDTIME 06/22/20 12/04/21 aspirin 81 mg tablet,delayed 81 mg PO DAILY 11/27/21 12/04/21 release (Adult Low Dose Aspirin) ezetimibe 10 mg tablet 10 mg PO DAILY 11/27/21 12/04/21 Previous Rx's Medication Instructions Recorded acetaminophen 325 mg tablet 650 mg PO TID #60 tab 06/30/20 aspirin 81 mg tablet,delayed 81 mg PO BID #60 tab 06/30/20 release (Adult Aspirin Regimen) docusate sodium 100 mg capsule 100 mg PO BID #60 cap 06/30/20 (DOK) Allergies Allergy/AdvReac Type Severity Reaction Status Date / Time Penicillins [PENICILLINS] Allergy Intermediate Hives Verified 12/04/21 10:27 Review of Systems Review of Systems Narrative: GENERAL: Denies chills, fatigue, malaise, fever, sweats, travel HEENT: Denies sinus pain, ear pain, sore throat, difficulty swallowing, neck pain RESPIRATORY: Denies dyspnea, cough, wheezing, hemoptysis, sputum. CARDIOVASCULAR: Denies chest pain, palpitations, orthopnea, edema GASTROINTESTINAL: See HPI : Denies dysuria, frequency, incontinence, hematuria, urinary retention, flank pain. MUSCULOSKELETAL: Denies weakness, joint pain, or bony pain SKIN: No rash, no erythema, no pruritus NEUROLOGIC: See HPI PSYCHIATRIC: No concerning psychosocial issues. 12 point review of systems is negative except for those stated above and HPI Patient History Medical History Anemia Ruiz's esophagus with dysplasia Bladder cancer (04/06/10) Chronic low back pain HLD (hyperlipidemia) Hypertension, essential, benign Kidney stones Osteoarthritis Pneumonia Primary osteoarthritis of knees, bilateral Renal mass, left Surgical History History of bladder surgery (~2009) History of esophagogastroduodenoscopy (EGD) (07/20/16) History of hernia repair (1969) History of hernia repair (1986) History of kidney surgery Hx of heart artery stent (2017) Social History marital status: household members: spouse Smoking Status: Never smoker alcohol intake: current substance use type: does not use Smoking Status: Never smoker alcohol intake frequency: holidays/special occasions only Alcohol type: beer Substance Use Type: does not use Exam Initial Vital Signs Initial Vital Signs: Vital Signs Temperature 98.1 F 12/05/21 19:23 Pulse Rate 70 12/05/21 19:23 Respiratory Rate 22 12/05/21 19:23 Blood Pressure 189/82 H 12/05/21 19:23 Pulse Oximetry 97 12/05/21 19:23 GENERAL: Alert 76-year-old male lying flat overall appears well in no acute distress. HEENT: Head atraumatic,EOMI, pupils reactive, no nystagmus, face symmetric, moist mucous membranes CARDIOVASCULAR: Regular rate and rhythm without murmurs, rubs or gallops. RESPIRATORY: Breath sounds equal bilaterally, no wheezes rales or rhonchi. ABDOMEN: Soft, nontender. Normoactive bowel sounds all 4 quadrants. No guarding or rebound. EXTREMITIES: Normal range of motion, no clubbing or edema. Neurovascularly intact NEUROLOGICAL: Alert and oriented x4.Normal gait and speech. Cranial nerves II through XII grossly intact. Good lpgtfu-ar-gxja, good zxdb-ic-waje, strength equal bilaterally, no dysarthria or aphasia, sensation in tact to soft touch bilaterally, no visual changes, no facial droop SKIN: Warm, dry, no laceration, no petechiae, no rashes or lesions. Course Orders Ordered: ED Orders 12/05/21 19:25 Complete Blood Count AUTO DIFF Stat Comprehensive Metabolic Panel Stat Lipase Stat Procalcitonin Stat 12/05/21 19:53 EKG-12 Lead Stat 12/05/21 20:11 CT angio head and neck Stat 12/05/21 22:22 COVID19 -Nasal RAPID/Pre-Proc Stat 12/05/21 23:28 Troponin & CK Cardiac Panel Stat Discontinued Medications Dexamethasone (Dexamethasone 4 Mg/Ml Vial) 4 mg IV NOW ONE Stop: 12/05/21 23:05 Last Admin: 12/05/21 23:09 Dose: 4 mg Documented by: RADHA Sodium Chloride (Normal Saline 0.9%) 1,000 mls @ 1,000 mls/hr IV BOLUS ONE Stop: 12/05/21 21:10 Last Infusion: 12/05/21 22:20 Dose: 0 mls/hr Documented by: Admin: 12/05/21 20:17 Dose: 1,000 mls/hr Documented by: RADHA Meclizine HCl (Meclizine Hcl 12.5 Mg Tablet) 25 mg PO NOW ONE Stop: 12/05/21 20:12 Last Admin: 12/05/21 20:17 Dose: 25 mg Documented by: RADHA Ondansetron HCl (Ondansetron 4 Mg/2 Ml Inj) 4 mg IV NOW ONE Stop: 12/05/21 20:12 Last Admin: 12/05/21 20:17 Dose: 4 mg Documented by: RADHA Ondansetron HCl (Ondansetron 4 Mg/2 Ml Inj) 4 mg IV NOW ONE Stop: 12/06/21 00:13 Last Admin: 12/06/21 00:17 Dose: 4 mg Documented by: RADHA Pantoprazole Sodium (Pantoprazole 40 Mg Vial) 40 mg IV NOW ONE Stop: 12/05/21 22:22 Last Admin: 12/05/21 22:25 Dose: 40 mg Documented by: RADHA Vital Signs Vital signs: Vital Signs - 8 hr 12/05/21 19:23 12/05/21 20:01 12/05/21 20:36 Temperature 98.1 F Pulse Rate 70 65 Respiratory Rate 22 29 H 18 Blood Pressure 189/82 H Pulse Oximetry 97 95 12/05/21 20:52 12/05/21 21:00 12/05/21 21:30 Temperature Pulse Rate 66 65 67 Respiratory Rate 15 13 11 L Blood Pressure 188/108 H 177/105 H 163/92 H Pulse Oximetry 100 99 98 12/05/21 22:00 12/05/21 22:01 12/05/21 22:30 Temperature Pulse Rate 69 71 74 Respiratory Rate 18 20 23 Blood Pressure 199/104 H Pulse Oximetry 99 99 99 12/05/21 23:00 12/05/21 23:01 12/05/21 23:30 Temperature Pulse Rate 72 66 72 Respiratory Rate 15 13 14 Blood Pressure 195/101 H 200/114 H Pulse Oximetry 99 99 99 12/06/21 00:00 12/06/21 00:01 Temperature Pulse Rate 71 74 Respiratory Rate 15 18 Blood Pressure 179/101 H Pulse Oximetry 98 99 MDM - Recheck/Abnormal Lab/Rx Lab Data Result diagrams: 12/05/21 19:25 12/05/21 19:25 Labs: Lab Results 12/05/21 12/05/21 12/05/21 Range/Units 19:25 19:25 19:25 WBC 10.7 (4.5-11.0) X10^3/uL RBC 5.27 (4.5-5.9) X10^6/uL Hgb 14.1 (13.5-17.5) g/dL Hct 43.9 (41-53) % MCV 83.3 (80-100) fL MCH 26.8 (26-34) PG MCHC 32.1 (30-36) % RDW 16.0 H (11.6-14.8) % Plt Count 290 (150-400) X10^3/uL Neut % (Auto) 70.5 (50-75) % Lymph % (Auto) 17.2 L (25-40) % [place] % (Auto) 10.5 (3-14) % Eos % (Auto) 0.8 L (2-4) % Baso % (Auto) 1.0 (0-2) % Neut # (Auto) 7500 H (1757-5148) /uL Lymph # (Auto) 1800 (5027-5774) /uL [place] # (Auto) 1100 H (0-900) /uL Eos # (Auto) 100 (0-450) /uL Baso # (Auto) 100 (0-100) /uL Sodium 139 (137-145) mmol/L Potassium 4.2 (3.4-5.1) mmol/L Chloride 109 H (98-107) mmol/L Carbon Dioxide 21 L (22-32) mmol/L BUN 20 (9-20) mg/dL Creatinine 0.87 (0.66-1.25) mg/dL Estimated GFR > 60 (>60) mL/min BUN/Creatinine Ratio 23.0 H (6-22) Glucose 110 (80-110) mg/dL Calcium 9.8 (8.4-10.2) mg/dL Total Bilirubin 1.0 (0.2-1.3) mg/dL AST 38 (17-59) IU/L ALT 19 (<50) IU/L Alkaline Phosphatase 82 (38-126) U/L Total Creatine Kinase (55-170) U/L CK-MB (CK-2) CK-MB (CK-2) Rel Index Troponin I (0.01-0.034) ng/mL Total Protein 7.8 (6.3-8.2) g/dL Albumin 4.2 (3.5-5.0) g/dL Globulin 3.6 (1.7-4.1) g/dL Albumin/Globulin Ratio 1.2 (1.0-2.8) Lipase 90 (23-300) U/L Procalcitonin 0.08 (<0.5) ng/mL SARS-CoV-2 (PCR) (Negative) 12/05/21 12/05/21 Range/Units 22:22 23:28 WBC (4.5-11.0) X10^3/uL RBC (4.5-5.9) X10^6/uL Hgb (13.5-17.5) g/dL Hct (41-53) % MCV (80-100) fL MCH (26-34) PG MCHC (30-36) % RDW (11.6-14.8) % Plt Count (150-400) X10^3/uL Neut % (Auto) (50-75) % Lymph % (Auto) (25-40) % [place] % (Auto) (3-14) % Eos % (Auto) (2-4) % Baso % (Auto) (0-2) % Neut # (Auto) (8474-6603) /uL Lymph # (Auto) (4931-4924) /uL [place] # (Auto) (0-900) /uL Eos # (Auto) (0-450) /uL Baso # (Auto) (0-100) /uL Sodium (137-145) mmol/L Potassium (3.4-5.1) mmol/L Chloride (98-107) mmol/L Carbon Dioxide (22-32) mmol/L BUN (9-20) mg/dL Creatinine (0.66-1.25) mg/dL Estimated GFR (>60) mL/min BUN/Creatinine Ratio (6-22) Glucose (80-110) mg/dL Calcium (8.4-10.2) mg/dL Total Bilirubin (0.2-1.3) mg/dL AST (17-59) IU/L ALT (<50) IU/L Alkaline Phosphatase (38-126) U/L Total Creatine Kinase 35 L (55-170) U/L CK-MB (CK-2) TNP CK-MB (CK-2) Rel Index TNP Troponin I < 0.012 (0.01-0.034) ng/mL Total Protein (6.3-8.2) g/dL Albumin (3.5-5.0) g/dL Globulin (1.7-4.1) g/dL Albumin/Globulin Ratio (1.0-2.8) Lipase (23-300) U/L Procalcitonin (<0.5) ng/mL SARS-CoV-2 (PCR) Negative (Negative) Urine Dip Bedside Urine Glucose Negative Bedside Urine Bilirubin - Negative Bedside Urine Ketone - Negative Urine Specific [place] 1.015 Bedside Urine Occult Blood - Negative Bedside Urine pH 6.5 Bedside Urine Protein - Negative Bedside Urine Urobilinogen - Negative Bedside Urine Nitrite - Negative Bedside Urine Leukocytes - Negative Esterase Imaging Data CTA - brain/neck: Radiologist's Impression: ent: Alonzo Goncalves MR#: [id number] : 1945 Acct:[id number] Age/Sex: 76 / M Date of Service: 12/05/21 Loc: ED Accession Number: [id number] ?? Procedure: CT angio head and neck Ordering Provider: Italia Diaz D.O. PROCEDURE:? CT ANGIO HEAD AND NECK ? INDICATIONS:? dizzy ? TECHNIQUE:? Pre-contrast 4.5 mm thick sections acquired from the foramen magnum to the vertex.? After the administration of intravenous contrast, 1 mm thick sections acquired from the aortic arch through the [place] of Marie.? Post-contrast 4.5 mm thick sections then re-acquired from the foramen magnum to the vertex.? 3-dimensional ixyclat-txndqkwhs-atwagkcqmh (MIP) and/or volume rendering reformats were acquired of the central intracranial vasculature and neck separately. For radiation dose reduction, the following was used:? automated exposure control, adjustment of mA and/or kV according to patient size.? ? COMPARISON:? None. ? FINDINGS:? Image quality:? Excellent.? ? BRAIN:? CSF spaces:? The 4th ventricle is narrowed and compressed.? Lateral and 3rd ventricles appear normal in symmetric..? Basal cisterns are patent.? No extra-axial fluid collections.? ? Brain:? Irregular, ovoid, heterogeneously hyperdense mass in the left cerebellar hemisphere with the epicenter in the white matter is present.? Postcontrast it appears that there are two masses immediately adjacent to each other measuring 2.7 x 2.2 cm, and 1.6 x 1.0 cm.? In the right cerebellar hemisphere, there is a simple appearing ovoid fluid collection measuring 2.1 cm which, postcontrast demonstrates peripheral hypervascularity.? More inferiorly in the right cerebellar hemisphere, there is a peripherally vascular mass measuring 1.9 x 1.3 cm. Cerebellar edema narrows the 4th ventricle.? ? In the cortex postcontrast, there are seven other peripherally vascular smaller masses, mainly in the left hemisphere, mainly periventricular and subcortical white matter ranging in size from 6 mm in the rojas radiata to 1.2 cm in the left frontal subcortical white matter. ? Skull and face:? Calvarium and facial bones appear intact, without suspicious lesions.? Orbits appear normal.? ? Sinuses:? Sinuses and mastoids are clear.? ? HEAD CT ANGIOGRAPHY:? Anterior circulation:? Intracranial internal carotid arteries are normal in size and flow.? Moderate atherosclerotic calcification of intracranial internal carotid arteries.? The flow within the paired anterior cerebral arteries is normal and symmetric.? The flow within the middle cerebral arteries is normal and symmetric.? The anterior communicating artery is seen.? No aneurysms are seen.? ? Posterior circulation:? Visualized portions of the vertebral arteries demonstrate normal caliber, and join to form a normal appearing basilar artery.? Flow within the posterior cerebral arteries is normal and symmetric.? No aneurysms are seen.? There appears to be neovascularity towards bilateral cerebellar masses, the right which demonstrates early arterial enhancement. ? NECK CT ANGIOGRAPHY:? Carotid system:? The great vessels demonstrate a conventional anatomy as they arise from the aortic arch.? The origins of the common carotid arteries appear patent.? The common carotid arteries demonstrate normal caliber and courses moderate bilateral atherosclerotic calcification at the carotid bulbs.? No significant luminal narrowing of the right ICA and mild luminal narrowing of the left ICA origin..? The bifurcation regions are both widely patent.? The internal carotid arteries demonstrate normal calibers and courses.? ? Posterior circulation:? The origins of the vertebral arteries both appear widely patent.? The more superior extracranial portions of both vertebral arteries also demonstrate normal courses and calibers.? They join to form a normal appearing basilar artery.? ? Soft tissues:? Small mediastinal lymph nodes are seen.? No bulky mediastinal adenopathy or supraclavicular adenopathy.? No cervical chain adenopathy. ? Bones:? No suspicious bony lesions.? Visualized cervical spine appears normally aligned.? IMPRESSION:? ? 1. There are several hyperenhancing, slightly hyperdense masses in the brain, predominantly affecting both hemispheres of the cerebellum, left more so than right.? There is vasogenic edema in the left cerebellar hemisphere which is narrowing the 4th ventricle.? In the cortex, smaller masses affect predominantly the left hemisphere.? Differential diagnosis includes infectious disease and metastatic disease. ? 2. There is mild carotid bulb atherosclerotic calcification with minor left ICA origin narrowing.? Intracranial and neck vasculature is otherwise normal without occlusion or aneurysm.? ? 3. Findings discussed with Dr. Diaz in the emergency room at 21 29 hours. ? Any quantitative measurements of stenosis were performed using NASCET criteria.? ? ? Dictated by: Pricilla Rutledge M.D. on 12/05/2021 at 21:11 ?? ECG Data Interpretation: Normal sinus rhythm rate 61 KS interval 186 QRS 152 QTC 481 right bundle-branch block noted similar to previous EKG no ST changes MDM Narrative Medical decision making narrative: Patient is having positional vertigo like symptoms which have gotten progressively worse over the last 1 week and more vomiting over the last [address] actually confirms multiple probable metastatic lesions. Although differential includes possibly infectious. Patient denies any travel outside of [facility]. No abnormal foods although he had a couple bites of [place]. 11pm Dr Blankenship, neurosurgery at her review his has been updated patient's symptoms test results reviewed imaging himself. At this time is okay with 4 mg of dexamethasone agrees to transfer. Patient blood pressure is elevated he is not taking any of his blood pressure medication today because of the nausea. He is given his home medications here in the emergency department. He has no focal deficits he has remained stable is as well. Discharge Plan Departure Patient Disposition: [facility] Clinical Impression: Brain mass Prescriptions: No Action aspirin [Adult Low Dose Aspirin] 81 mg tablet,delayed release (DR/EC) 81 mg PO DAILY 0RF ezetimibe 10 mg tablet 10 mg PO DAILY 0RF atorvastatin 80 mg tablet 80 mg PO BEDTIME 0RF carvedilol 6.25 mg tablet 6.25 mg PO BID 0RF esomeprazole magnesium [Nexium] 20 mg Capsule,Delayed Release(Dr/Ec) 20 mg PO DAILY 0RF lisinopril 20 mg tablet 40 mg PO BEDTIME 0RF amlodipine 10 mg Tablet 10 mg PO DAILY 0RF acetaminophen 325 mg Tablet 650 mg PO TID Qty: 60 0RF docusate sodium [DOK] 100 mg Capsule 100 mg PO BID Qty: 60 0RF aspirin [Adult Aspirin Regimen] 81 mg tablet,delayed release (DR/EC) 81 mg PO BID Qty: 60 0RF Referrals: Griffin Bourgeois MD [Primary Care Provider] -
[2021-12-05 20:03] LABS: Add Manual Diff / Slide Review NO; Basophils Absolute Auto 100 /uL (0-100); Eosinophils Absolute Auto 100 /uL (0-450); Eosinophils Percent Auto 0.8 % (2-4); Hematocrit 43.9 % (41-53); Hemoglobin 14.1 g/dL (13.5-17.5); Lymphocytes Absolute Auto 1800 /uL (1100-4500); Lymphocytes Percent Auto 17.2 % (25-40); Mean Corpuscular HGB Conc 32.1 % (30-36); Mean Corpuscular Hemoglobin 26.8 PG (26-34); Mean Corpuscular Volume 83.3 fL (80-100); Monocytes Absolute Auto 1100 /uL (0-900); Monocytes Percent Auto 10.5 % (3-14); Neutrophils Absolute Auto 7500 /uL (1500-7000); Neutrophils Percent Auto 70.5 % (50-75); Platelet Count 290 X10^3/uL (150-400); Red Blood Cell Count 5.27 X10^6/uL (4.5-5.9); White Blood Cell Count 10.7 X10^3/uL (4.5-11.0)
--- NOTE | 2021-12-05 20:11 | DI.CT.S_ITS ---
PROCEDURE: CT ANGIO HEAD AND NECK INDICATIONS: dizzy TECHNIQUE: Pre-contrast 4.5 mm thick sections acquired from the foramen magnum to the vertex. After the administration of intravenous contrast, 1 mm thick sections acquired from the aortic arch through the [place] of [place]. Post-contrast 4.5 mm thick sections then re-acquired from the foramen magnum to the vertex. 3-dimensional homfiwz-gfvwejhsw-hhqtkqfxmn (MIP) and/or volume rendering reformats were acquired of the central intracranial vasculature and neck separately. For radiation dose reduction, the following was used: automated exposure control, adjustment of mA and/or kV according to patient size. COMPARISON: None. FINDINGS: Image quality: Excellent. BRAIN: CSF spaces: The 4th ventricle is narrowed and compressed. Lateral and 3rd ventricles appear normal in symmetric.. Basal cisterns are patent. No extra-axial fluid collections. Brain: Irregular, ovoid, heterogeneously hyperdense mass in the left cerebellar hemisphere with the epicenter in the white matter is present. Postcontrast it appears that there are two masses immediately adjacent to each other measuring 2.7 x 2.2 cm, and 1.6 x 1.0 cm. In the right cerebellar hemisphere, there is a simple appearing ovoid fluid collection measuring 2.1 cm which, postcontrast demonstrates peripheral hypervascularity. More inferiorly in the right cerebellar hemisphere, there is a peripherally vascular mass measuring 1.9 x 1.3 cm. Cerebellar edema narrows the 4th ventricle. In the cortex postcontrast, there are seven other peripherally vascular smaller masses, mainly in the left hemisphere, mainly periventricular and subcortical white matter ranging in size from 6 mm in the rojas radiata to 1.2 cm in the left frontal subcortical white matter. Skull and face: Calvarium and facial bones appear intact, without suspicious lesions. Orbits appear normal. Sinuses: Sinuses and mastoids are clear. HEAD CT ANGIOGRAPHY: Anterior circulation: Intracranial internal carotid arteries are normal in size and flow. Moderate atherosclerotic calcification of intracranial internal carotid arteries. The flow within the paired anterior cerebral arteries is normal and symmetric. The flow within the middle cerebral arteries is normal and symmetric. The anterior communicating artery is seen. No aneurysms are seen. Posterior circulation: Visualized portions of the vertebral arteries demonstrate normal caliber, and join to form a normal appearing basilar artery. Flow within the posterior cerebral arteries is normal and symmetric. No aneurysms are seen. There appears to be neovascularity towards bilateral cerebellar masses, the right which demonstrates early arterial enhancement. NECK CT ANGIOGRAPHY: Carotid system: The great vessels demonstrate a conventional anatomy as they arise from the aortic arch. The origins of the common carotid arteries appear patent. The common carotid arteries demonstrate normal caliber and courses moderate bilateral atherosclerotic calcification at the carotid bulbs. No significant luminal narrowing of the right ICA and mild luminal narrowing of the left ICA origin.. The bifurcation regions are both widely patent. The internal carotid arteries demonstrate normal calibers and courses. Posterior circulation: The origins of the vertebral arteries both appear widely patent. The more superior extracranial portions of both vertebral arteries also demonstrate normal courses and calibers. They join to form a normal appearing basilar artery. Soft tissues: Small mediastinal lymph nodes are seen. No bulky mediastinal adenopathy or supraclavicular adenopathy. No cervical chain adenopathy. Bones: No suspicious bony lesions. Visualized cervical spine appears normally aligned. IMPRESSION: 1. There are several hyperenhancing, slightly hyperdense masses in the brain, predominantly affecting both hemispheres of the cerebellum, left more so than right. There is vasogenic edema in the left cerebellar hemisphere which is narrowing the 4th ventricle. In the cortex, smaller masses affect predominantly the left hemisphere. Differential diagnosis includes infectious disease and metastatic disease. 2. There is mild carotid bulb atherosclerotic calcification with minor left ICA origin narrowing. Intracranial and neck vasculature is otherwise normal without occlusion or aneurysm. 3. Findings discussed with Dr. Diaz in the emergency room at 21 29 hours. Any quantitative measurements of stenosis were performed using NASCET criteria. Dictated by: Pricilla Rutledge M.D. on 12/05/2021 at 21:11 Approved by: Pricilla Rutledge M.D. on 12/05/2021 at 21:32
[2021-12-05 20:17] LABS: Alanine Aminotransferase 19 IU/L (<50); Albumin 4.2 g/dL (3.5-5.0); Albumin Globulin Ratio 1.2 (1.0-2.8); Alkaline Phosphatase 82 U/L (38-126); Aspartate Aminotransferase 38 IU/L (17-59); Blood Urea Nitrogen 20 mg/dL (9-20); Calcium 9.8 mg/dL (8.4-10.2); Carbon Dioxide 21 mmol/L (22-32); Chloride 109 mmol/L (98-107); Estimated Glomerular Filt Rate > 60 mL/min (>60); Globulin 3.6 g/dL (1.7-4.1); Glucose 110 mg/dL (80-110); HEMOLYSIS 36 (0-50); Lipase 90 U/L (23-300); Potassium 4.2 mmol/L (3.4-5.1); Sodium 139 mmol/L (137-145); Total Protein 7.8 g/dL (6.3-8.2)
[2021-12-05] MEDS: ONDANSETRON 4 MG/2 ML INJ IV (20:17)
[2021-12-05] MEDS: MECLIZINE HCL 12.5 MG TABLET 25 MG PO (20:17)
[2021-12-05] MEDS: SODIUM CHLORIDE 0.9% 1,000 ML 1000 ML IV (20:17)
--- NOTE | 2021-12-05 21:25 | PC.NURSE ---
At 21:18 pt had a 14 beat run of [facility], Dr Diaz notified.
[2021-12-05 22:05] LABS: Procalcitonin 0.08 ng/mL (<0.5)
[2021-12-05] MEDS: PANTOPRAZOLE 40 MG VIAL IV (22:25)
[2021-12-05 22:41] LABS: COVID19 -Nasal RAPID Negative (Negative)
[2021-12-05] MEDS: DEXAMETHASONE 4 MG/ML VIAL IV (23:09)
[2021-12-05 23:44] LABS: Creatine Kinase 35 U/L (55-170)
[2021-12-05 23:56] LABS: Troponin I < 0.012 ng/mL (0.01-0.034)
[2021-12-06] VITALS: PULSE 71; RESP 15; O2SAT 98
[2021-12-06 00:01] VITALS: BP 179/101; PULSE 74; RESP 18; O2SAT 99
[2021-12-06] MEDS: ONDANSETRON 4 MG/2 ML INJ IV (00:17)
== END 2021-12-06 00:18 | disposition short-term general hospital (02) ==
PROVIDERS: Emergency Provider Emergency Medicine; Family Provider Family Medicine; PCP Family Medicine
DX: R22.0 Localized swelling, mass and lump, head (principal); I10 Essential (primary) hypertension; Z20.822 Contact with and (suspected) exposure to COVID-19
CPT/HCPCS: 36415; 70496; 70498; 80053; 81003; 82550; 83690; 84145; 84484; 85025; 87635; 93005; 96361; 96374; 96375; 96376; 99284; 99285; C9803; C9113; J1100; J2405; Q9967

== ENCOUNTER → 2022-01-17 12:48 | Outpatient (CLI) | payer OTHER, SELFPAY ==
[2020-06-29 13:35] VITALS: BMI 27.8
--- NOTE | 2022-01-17 | DI.US.S_ITS ---
PROCEDURE: US PERIPH VENOUS LOW EXTREM BI INDICATIONS: EDEMA TECHNIQUE: Real-time imaging, as well as color and pulse Doppler interrogation, were performed of the deep veins of both legs from the inguinal ligament to the popliteal fossa. COMPARISON: None. FINDINGS: Right: The common femoral, femoral and popliteal veins are normally compressible, and free of intraluminal thrombus. Color and pulse Doppler demonstrate normal phasic intravascular flow. There is normal augmentation response to distal compression maneuver. Left: The common femoral, femoral and popliteal veins are normally compressible, and free of intraluminal thrombus. Color and pulse Doppler demonstrate normal phasic intravascular flow. There is normal augmentation response to distal compression maneuver. IMPRESSION: Negative for deep venous thrombosis. Dictated by: Christopher Stoddard M.D. on 01/17/2022 at 13:03 Approved by: Christopher Stoddard M.D. on 01/17/2022 at 13:03
== END ==
PROVIDERS: Family Provider Family Medicine; PCP Family Medicine; Referring Provider Radiology Radiation Oncology; Visit Provider Radiology Radiation Oncology
DX: R60.0 Localized edema (principal)
CPT/HCPCS: 93970

== ENCOUNTER 2022-01-24 09:01 | Day surgery (SDC) | payer OTHER, SELFPAY ==
[2020-06-29 13:35] VITALS: BMI 27.8
--- NOTE | 2022-01-24 10:25 | SUR.PREOP ---
Pt called and updated on cancelation of surgical case. pt informed that Dr. Miranda's office will reach out the him to reschedule.
[2022-01-24 10:28] LABS: COVID19 -Nasal RAPID Negative (Negative)
== END 2022-01-24 09:05 | disposition home or self-care (01) ==
PROVIDERS: Family Provider Family Medicine; PCP Family Medicine; Referring Provider Surgery; Visit Provider Surgery
CPT/HCPCS: 87635

== ENCOUNTER → 2022-01-24 09:14 | Outpatient (CLI) | payer OTHER, SELFPAY ==
[2020-06-29 13:35] VITALS: BMI 27.8
== END ==
PROVIDERS: Family Provider Family Medicine; PCP Family Medicine; Visit Provider Surgery
DX: Z01.812 Encounter for preprocedural laboratory examination (principal); Z20.822 Contact with and (suspected) exposure to COVID-19
CPT/HCPCS: 87635; C9803

== ENCOUNTER 2022-01-26 10:04 | Day surgery (SDC) | payer OTHER, SELFPAY ==
[2020-06-29 13:35] VITALS: BMI 27.8
[2022-01-24 15:15] VITALS: BMI 26.9
[2022-01-26 10:21] VITALS: BP 133/96; PULSE 68; RESP 15; TEMP 36.2; O2SAT 97; BMI 26.9
[2022-01-26] MEDS: LACTATED RINGERS 1,000 ML 100 ML IV (10:33)
--- NOTE | 2022-01-26 11:11 | PM.HP.1 ---
History of Present Illness History of Present Illness Date Patient Seen: 01/26/22 Time Patient Seen: 11:11 Chief complaint: SDC Narrative: 76-year-old man with metastatic esophageal carcinoma here for elective Port-A-Cath placement. He has never had a previous indwelling venous catheter. Currently feeling well. No anticoagulants he is on aspirin. Patient History Medical History Anemia Ruzi's esophagus with dysplasia Bladder cancer (04/06/10) Cancer of brain (~12/27/21) Chronic low back pain HLD (hyperlipidemia) Hypertension, essential, benign Kidney stones Osteoarthritis Pneumonia Primary osteoarthritis of knees, bilateral Renal mass, left Surgical History History of arthroplasty of right hip (06/29/20) History of bladder surgery (~2009) History of esophagogastroduodenoscopy (EGD) (07/20/16) History of hernia repair (1969) History of hernia repair (1986) History of kidney surgery Hx of heart artery stent (2017) Family & Social History Social History: household members spouse Tobacco & Substance use: Smoking Status Never smoker alcohol intake current alcohol intake frequency a few times a week Substance Use Type does not use Meds Home Medications and Allergies Home Medications Medication Instructions Recorded Confirmed Type atorvastatin 80 mg tablet 80 mg PO BEDTIME 05/08/18 01/26/22 History carvedilol 6.25 mg tablet 6.25 mg PO BID 05/08/18 01/26/22 History amlodipine 10 mg tablet 10 mg PO DAILY 06/22/20 01/26/22 History lisinopril 20 mg tablet 40 mg PO BEDTIME 06/22/20 01/26/22 History aspirin 81 mg tablet,delayed 81 mg PO DAILY 11/27/21 01/26/22 History release (Adult Low Dose Aspirin) ezetimibe 10 mg tablet 10 mg PO DAILY 11/27/21 01/26/22 History Allergies Allergy/AdvReac Type Severity Reaction Status Date / Time Penicillins [PENICILLINS] Allergy Intermediate Hives Verified 01/26/22 10:30 Exam Vital Signs (past 8 hours): - 01/26/22 10:21 Temperature 97.2 F L Pulse Rate 68 Respiratory Rate 15 Blood Pressure 133/96 H Pulse Oximetry 97 Oxygen Delivery Method Room Air Oxygen Delivery Method Room Air Narrative Exam Narrative: General adult male alert oriented no acute distress Chest nonlabored respirations Abdomen soft nontender nondistended Extremities warm well perfused Assessment & Plan Assessment and plan (1) Primary adenocarcinoma of distal third of esophagus: Status: Acute Assessment & Plan narrative: 76-year-old man with metastatic esophageal carcinoma here for elective Port-A-Cath. Overview of the operation was discussed. Operative risks including bleeding, infection, device malfunction, embolism, pneumothorax were discussed. His questions have been answered and he is in agreement with this plan. Time Spent With Patient Critical Care time: I spent a total of [] minutes of critical care time on this patient's care today; this time is exclusive of procedural time.
[2022-01-26] MEDS: CLINDAMYCIN 900 MG/50 ML PIGGYBACK 50 MG IV (11:30)
[2022-01-26] MEDS: BUPIVACAINE 0.25% (PF) VIAL 30 ML INJ (11:44)
[2022-01-26] MEDS: HEPARIN 5,000 UNIT, SODIUM CHLORIDE 0.9% 50 ML IV (11:48)
--- NOTE | 2022-01-26 11:51 | SUR.OPER ---
Supine on padded OR bed, head on pillow, arms padded and tucked at sides, legs uncrossed, safety belt at thigh, tape over blanket over lower legs . Position approved by anesthesia and surgeon
[2022-01-26 12:13] VITALS: BP 82/59; PULSE 62; RESP 23; TEMP 36.1; O2SAT 98
[2022-01-26 12:15] VITALS: BP 89/59; PULSE 61; RESP 19; O2SAT 97
--- NOTE | 2022-01-26 12:15 | DI.RAD.S_ITS ---
PROCEDURE: XR CHEST 1V INDICATIONS: POST PORT A CATH TECHNIQUE: One view of the chest was acquired. COMPARISON: [facility], , XR CHEST 1V, 12/01/2021, 14:41. FINDINGS: Surgical changes and devices: There is a new right Port-A-Cath, the tip of which is in the right brachiocephalic vein. Lungs and pleura: Lungs are clear. No pleural effusions or pneumothorax. Mediastinum: Mediastinal contours appear normal. Heart size is normal. Bones and chest wall: No suspicious bony lesions. Overlying soft tissues appear unremarkable. IMPRESSION: Port-A-Cath with tip in the right brachiocephalic vein. Dictated by: Daily Fernando M.D. on 01/26/2022 at 13:31 Approved by: Daily Fernando M.D. on 01/26/2022 at 13:32
--- NOTE | 2022-01-26 12:17 | P.OP_ITS ---
Operative Date/Time/Diagnoses Date of procedure: 01/26/22 Time of procedure: 12:17 Pre-op diagnosis: Esophageal carcinoma metastatic Post-op diagnosis: same Procedure & Clinicians Procedure: Port-A-Cath placement Same procedure as scheduled: Yes Indications: Venous insufficiency Esophageal carcinoma Surgeon: Magno Miranda Click Yes if Unassisted: Yes Anesthesia Type: General Operative Notes Findings: Tip of the catheter projects into the SVC. Chest x-ray is pending. Port flushes and draws easily Specimen(s): none sent Estimated Blood Loss (mL): 10 Procedure in detail: Patient was brought to the operating room placed supine on table. Bilateral lower extremity compressive devices were applied. General anesthesia was induced and he was intubated with an LMA. He was then prepped and draped in usual sterile fashion. Time-out was performed ensure the correct patient procedure necessary equipment within the operating room. He received 2 g of Ancef prior to incision. Under ultrasound guidance the right internal jugular vein was accessed under direct visualization. The guidewire was then threaded through the needle. Its placement was then confirmed using fluoroscopy. The dilator was then placed over the guidewire. The catheter was then inserted through the sheath. Placement was again confirmed with fluoroscopy. A subcutaneous pocket was made in the right chest wall. The tunneler device was used to move the catheter from the neck to the chest pocket. The port was attac hed after it was primed with heparined saline. The port was tested to ensure that it flushed easily and had good blood return. The port was then secured to the underlying fascia using interupted 0 Prolene suture. Hemostasis was achieved. The wound was irrigated with sterile saline. The subcutaneous tissues were reapproximated with the 3 0 Vicryl and then skin closed with 4-0 Monocryl. The skin was sealed with Dermabond. Patient tolerated procedure well. The sponge and instrument count at the end operation was correct. Patient emerged from general anesthesia was extubated and taken to the postoperative care unit in stable condition Complications: none Post-operative Condition: stable Disposition: same day surgery
[2022-01-26 12:18] VITALS: BP 93/60; PULSE 65; RESP 19; O2SAT 97
[2022-01-26 12:24] VITALS: BP 88/59; PULSE 64; RESP 16; RESP 27; O2SAT 94; O2SAT 97
[2022-01-26 12:33] VITALS: BP 105/73; PULSE 61; RESP 20; TEMP 36.2; O2SAT 96
== END 2022-01-26 13:01 | disposition home or self-care (01) ==
PROVIDERS: Family Provider Family Medicine; PCP Family Medicine; Referring Provider Surgery; Visit Provider Surgery
PROC: (CPT 36561; principal; 2022-01-26 11:15)
DX: C15.9 Malignant neoplasm of esophagus, unspecified (principal); I25.10 Atherosclerotic heart disease of native coronary artery without angina pectoris; Z79.82 Long term (current) use of aspirin
CPT/HCPCS: 36561; 71045; 76000; C1788; J1100; J1644; J1885; J2250; J2405; J2704; J3010

== ENCOUNTER 2022-02-06 00:54 | Inpatient (IN) | payer OTHER, SELFPAY ==
[2020-06-29 13:35] VITALS: BMI 27.8
[2022-02-06] VITALS (17 sets, daily range): BP systolic 94–143; BP diastolic 57–80; PULSE 82–100; RESP 16–26; TEMP 36.6–37.7; O2SAT 96–98; BMI 32.2
--- NOTE | 2022-02-06 00:58 | DI.RAD.S_ITS ---
PROCEDURE: XR CHEST 1V INDICATIONS: suspected sepsis TECHNIQUE: One view of the chest was acquired. COMPARISON: [facility], [place], NM PET CT FUSION SKULL 2 THIGH, 01/31/2022, 8:01. [facility], [place], XR CHEST 1V, 01/26/2022, 12:16. FINDINGS: Surgical changes and devices: Right internal jugular Port-A-Cath redemonstrated with the tip redemonstrated in the superior vena cava. Lungs and pleura: Lungs are clear. No pleural effusions or pneumothorax. Mediastinum: Mediastinal contours appear unchanged with tortuosity of the descending thoracic aorta and a small hiatal hernia redemonstrated. Heart size is normal. Bones and chest wall: No suspicious bony lesions. Overlying soft tissues appear unremarkable. IMPRESSION: 1. No definite acute cardiopulmonary disease. Dictated by: Philippe Tejada M.D. on 02/06/2022 at 2:26 Approved by: Philippe Tejada M.D. on 02/06/2022 at 2:29
[2022-02-06] MEDS: SODIUM CHLORIDE 0.9% 1,000 ML 1000 ML IV (01:00)
--- NOTE | 2022-02-06 01:05 | ED_ITS ---
HPI - Extremity Injury (Lower) General Chief Complaint: Extremity Injury, Lower Stated Complaint: Bilateral lower leg swelling Time Seen by Provider: 02/06/22 01:05 History of Present Illness HPI Narrative: 76-year-old male nonsmoker with history of multiple brain masses, esophageal cancer, hypertension, urothelial neoplasm, bladder or carcinoma presents by EMS for evaluation of increasing redness and pain in his right lower extremity. The swelling has been present in his bilateral lower extremities for some time but he has had relatively rapid increasing redness, pain and swelling in his right leg over the past few days. He was recently seen and evaluated and had ultrasound which demonstrated no DVT. He denies fever but has had chills. He denies any notable dizziness, weakness or lightheadedness. He denies any chest pain or shortness of breath. He has occasional nausea but denies any vomiting. Related Data Home Medications Medication Instructions Recorded Confirmed atorvastatin 80 mg tablet 80 mg PO BEDTIME 05/08/18 01/26/22 carvedilol 6.25 mg tablet 6.25 mg PO BID 05/08/18 01/26/22 amlodipine 10 mg tablet 10 mg PO DAILY 06/22/20 01/26/22 lisinopril 20 mg tablet 40 mg PO BEDTIME 06/22/20 01/26/22 aspirin 81 mg tablet,delayed 81 mg PO DAILY 11/27/21 01/26/22 release (Adult Low Dose Aspirin) ezetimibe 10 mg tablet 10 mg PO DAILY 11/27/21 01/26/22 Previous Rx's Medication Instructions Recorded acetaminophen 325 mg capsule 650 mg PO QID PRN pain #60 caps 01/26/22 (Tylenol) Allergies Allergy/AdvReac Type Severity Reaction Status Date / Time Penicillins [PENICILLINS] Allergy Intermediate Hives Verified 01/26/22 10:30 Review of Systems Review of Systems Narrative: GENERAL: See HPI HEENT: Denies sinus pain, ear pain, sore throat, difficulty swallowing, dizziness. RESPIRATORY: Denies dyspnea, cough, wheezing, hemoptysis, sputum. CARDIOVASCULAR: Denies chest pain, palpitations, orthopnea, edema, GASTROINTESTINAL: Denies nausea, vomiting, abdominal pain, diarrhea, constipation, melena. : Denies dysuria, frequency, incontinence, hematuria, urinary retention. MUSCULOSKELETAL: See HPI SKIN: Denies rash, skin lesions, or other NEUROLOGIC: Denies weakness, headache, numbness, change in speech, confusion, seizures, incoordination. PSYCHIATRIC: No concerning psychosocial issues. 12 point review of systems is negative except for those stated above Patient History Medical History Anemia Ruiz's esophagus with dysplasia Bladder cancer (04/06/10) Cancer of brain (~12/27/21) Chronic low back pain HLD (hyperlipidemia) Hypertension, essential, benign Kidney stones Osteoarthritis Pneumonia Primary osteoarthritis of knees, bilateral Renal mass, left Surgical History History of arthroplasty of right hip (06/29/20) History of bladder surgery (~2009) History of esophagogastroduodenoscopy (EGD) (07/20/16) History of hernia repair (1969) History of hernia repair (1986) History of kidney surgery Hx of heart artery stent (2017) Social History marital status: household members: spouse Smoking Status: Never smoker alcohol intake: current substance use type: does not use Smoking Status: Never smoker alcohol intake frequency: a few times a week Alcohol type: beer Substance Use Type: does not use Exam Narrative Exam Narrative: GENERAL: 76[] year old patient appears stated age. Well-developed patient, in mild distress. HEAD: Atraumatic. Normocephalic. EYES: Pupils equal round and reactive. Extraocular motions intact. No scleral icterus. No injection or drainage. ENT: Nose without bleeding, purulent drainage. Throat without erythema, tonsillar hypertrophy or exudate. Airway patent. NECK: Trachea midline. Non tender CARDIOVASCULAR: Regular rate and rhythm without murmurs, gallops, or rubs. RESPIRATORY: Clear to auscultation. Breath sounds equal bilaterally. No wheezes, rales, or rhonchi. GASTROINTESTINAL: Abdomen soft, non-tender, nondistended. EXTREMITIES: Bilateral lower extremity 2+ edema, right lower extremity is significantly erythematous circumferentially, even bordering on ecchymotic. BACK: Nontender without deformity or crepitance. No flank tenderness. NEURO: AOx3. SKIN: No rash or erythema of visible areas Initial Vital Signs Initial Vital Signs: Vital Signs Temperature 99.9 F H 02/06/22 00:54 Pulse Rate 100 H 02/06/22 00:54 Respiratory Rate 16 02/06/22 00:54 Blood Pressure 143/80 H 02/06/22 00:54 Pulse Oximetry 97 02/06/22 00:54 Oxygen Delivery Method 02/06/22 00:54 Course Orders Ordered: ED Orders 02/06/22 00:56 Complete Blood Count AUTO DIFF Stat Comprehensive Metabolic Panel Stat Lactate (Lactic Acid) Stat Lipase Stat Partial Thromboplastin Time Stat Procalcitonin Stat Prothrombin Time INR Stat 02/06/22 00:58 XR chest 1V Stat EKG-12 Lead Stat 02/06/22 01:01 Blood Culture Stat Discontinued Medications Hydromorphone HCl (Hydromorphone 0.5 Mg Inj) 0.5 mg IV NOW ONE Stop: 02/06/22 02:48 Last Admin: 02/06/22 02:54 Dose: 0.5 mg Documented By: CHRISTOPHE Sodium Chloride (Normal Saline 0.9%) 1,000 mls @ 1,000 mls/hr IV BOLUS ONE Stop: 02/06/22 01:57 Last Infusion: 02/06/22 02:32 Dose: 0 mls/hr Documented By: Admin: 02/06/22 01:00 Dose: 1,000 mls/hr Documented By: SAHIL Vancomycin HCl/Dextrose (Vancomycin) 2,000 mg in 400 mls @ 200 mls/hr IV NOW ONE Stop: 02/06/22 04:06 Last Infusion: 02/06/22 03:57 Dose: 0 mls/hr Documented By: Admin: 02/06/22 02:24 Dose: 200 mls/hr Documented By: EMERY Vital Signs Vital signs: Vital Signs - 8 hr 02/06/22 00:54 Temperature 99.9 F H Pulse Rate 100 H Respiratory Rate 16 Blood Pressure 143/80 H Pulse Oximetry 97 Oxygen Delivery Method Room Air MDM - Extremity Injury (Lower) Lab Data Result diagrams: 02/06/22 00:56 02/06/22 00:56 Labs: Lab Results 02/06/22 02/06/22 02/06/22 Range/Units 00:56 00:56 00:56 WBC 4.5 (4.5-11.0) X10^3/uL RBC 4.52 (4.5-5.9) X10^6/uL Hgb 12.8 L (13.5-17.5) g/dL Hct 38.8 L (41-53) % MCV 85.7 (80-100) fL MCH 28.3 (26-34) PG MCHC 33.0 (30-36) % RDW 21.9 H (11.6-14.8) % Plt Count 109 L (150-400) X10^3/uL Neut % (Auto) 86.9 H (50-75) % Lymph % (Auto) 11.1 L (25-40) % [place] % (Auto) 1.5 L (3-14) % Eos % (Auto) 0.1 L (2-4) % Baso % (Auto) 0.4 (0-2) % Neut # (Auto) 3900 (5963-9286) /uL Lymph # (Auto) 500 L (3544-7498) /uL [place] # (Auto) 100 (0-900) /uL Eos # (Auto) 0 (0-450) /uL Baso # (Auto) 0 (0-100) /uL RBC Morphology See below Poikilocytosis 1+ H Anisocytosis 2+ H Ovalocytes 1+ H Schistocytes 1+ H PT 11.6 (10.1-12.7) SECONDS INR 1.0 (0.9-1.3) APTT 27 (26.4-36.2) SECONDS Sodium 139 (137-145) mmol/L Potassium 3.7 (3.4-5.1) mmol/L Chloride 107 (98-107) mmol/L Carbon Dioxide 24 (22-32) mmol/L BUN 24 H (9-20) mg/dL Creatinine 1.03 (0.66-1.25) mg/dL Estimated GFR > 60 (>60) mL/min BUN/Creatinine Ratio 23.3 H (6-22) Glucose 149 H (80-110) mg/dL Lactate (0.7-2.1) mmol/L Calcium 9.3 (8.4-10.2) mg/dL Total Bilirubin 0.8 (0.2-1.3) mg/dL AST 22 (17-59) IU/L ALT 30 (<50) IU/L Alkaline Phosphatase 69 (38-126) U/L Total Protein 5.9 L (6.3-8.2) g/dL Albumin 3.2 L (3.5-5.0) g/dL Globulin 2.7 (1.7-4.1) g/dL Albumin/Globulin Ratio 1.2 (1.0-2.8) Lipase 82 (23-300) U/L Procalcitonin 0.59 H (<0.5) ng/mL 02/06/22 Range/Units 00:56 WBC (4.5-11.0) X10^3/uL RBC (4.5-5.9) X10^6/uL Hgb (13.5-17.5) g/dL Hct (41-53) % MCV (80-100) fL MCH (26-34) PG MCHC (30-36) % RDW (11.6-14.8) % Plt Count (150-400) X10^3/uL Neut % (Auto) (50-75) % Lymph % (Auto) (25-40) % [place] % (Auto) (3-14) % Eos % (Auto) (2-4) % Baso % (Auto) (0-2) % Neut # (Auto) (9400-2807) /uL Lymph # (Auto) (7708-3840) /uL [place] # (Auto) (0-900) /uL Eos # (Auto) (0-450) /uL Baso # (Auto) (0-100) /uL RBC Morphology Poikilocytosis Anisocytosis Ovalocytes Schistocytes PT (10.1-12.7) SECONDS INR (0.9-1.3) APTT (26.4-36.2) SECONDS Sodium (137-145) mmol/L Potassium (3.4-5.1) mmol/L Chloride (98-107) mmol/L Carbon Dioxide (22-32) mmol/L BUN (9-20) mg/dL Creatinine (0.66-1.25) mg/dL Estimated GFR (>60) mL/min BUN/Creatinine Ratio (6-22) Glucose (80-110) mg/dL Lactate 2.6 H (0.7-2.1) mmol/L Calcium (8.4-10.2) mg/dL Total Bilirubin (0.2-1.3) mg/dL AST (17-59) IU/L ALT (<50) IU/L Alkaline Phosphatase (38-126) U/L Total Protein (6.3-8.2) g/dL Albumin (3.5-5.0) g/dL Globulin (1.7-4.1) g/dL Albumin/Globulin Ratio (1.0-2.8) Lipase (23-300) U/L Procalcitonin (<0.5) ng/mL MDM Narrative Medical decision making narrative: patient with chronic lower extremity swelling presents with painful, red swollen RLE with chills. He had an US a week or two ago without findings of DVT. Patient given fluids and ABX and will be admitted for on going treatment and stabilization Discharge Plan Departure Patient Disposition: Admitted As Inpatient Clinical Impression: Cellulitis of leg, right Admit Date/Time: 02/06/22 03:01 Admit Provider: Griffin Bourgeois
--- NOTE | 2022-02-06 01:15 | PC.NURSE ---
pt has swelling on bilateral lower ext, right leg noted to be dark red with small areas of skin breakdown, left leg is less red with small areas of skin breakdown
[2022-02-06 01:19] LABS: Prothrombin Time 11.6 SECONDS (10.1-12.7)
[2022-02-06 01:21] LABS: Add Manual Diff / Slide Review NO; Basophils Absolute Auto 0 /uL (0-100); Basophils Percent Auto 0.4 % (0-2); Eosinophils Absolute Auto 0 /uL (0-450); Eosinophils Percent Auto 0.1 % (2-4); Hematocrit 38.8 % (41-53); Hemoglobin 12.8 g/dL (13.5-17.5); Lymphocytes Absolute Auto 500 /uL (1100-4500); Lymphocytes Percent Auto 11.1 % (25-40); Mean Corpuscular Hemoglobin 28.3 PG (26-34); Mean Corpuscular Volume 85.7 fL (80-100); Monocytes Absolute Auto 100 /uL (0-900); Monocytes Percent Auto 1.5 % (3-14); Neutrophils Absolute Auto 3900 /uL (1500-7000); Neutrophils Percent Auto 86.9 % (50-75); Platelet Count 109 X10^3/uL (150-400); Red Blood Cell Count 4.52 X10^6/uL (4.5-5.9); Red Cell Distribution Width 21.9 % (11.6-14.8); White Blood Cell Count 4.5 X10^3/uL (4.5-11.0)
[2022-02-06 01:22] LABS: PTT Partial Thromboplastin Tim 27 SECONDS (26.4-36.2)
[2022-02-06 01:23] LABS: Lactate (Lactic Acid) 2.6 mmol/L (0.7-2.1)
[2022-02-06 01:24] LABS: Alanine Aminotransferase 30 IU/L (<50); Albumin 3.2 g/dL (3.5-5.0); Albumin Globulin Ratio 1.2 (1.0-2.8); Alkaline Phosphatase 69 U/L (38-126); Aspartate Aminotransferase 22 IU/L (17-59); BUN Creatinine Ratio 23.3 (6-22); Bilirubin Total 0.8 mg/dL (0.2-1.3); Blood Urea Nitrogen 24 mg/dL (9-20); Calcium 9.3 mg/dL (8.4-10.2); Carbon Dioxide 24 mmol/L (22-32); Chloride 107 mmol/L (98-107); Estimated Glomerular Filt Rate > 60 mL/min (>60); Globulin 2.7 g/dL (1.7-4.1); Glucose 149 mg/dL (80-110); HEMOLYSIS < 15 (0-50); Lipase 82 U/L (23-300); Potassium 3.7 mmol/L (3.4-5.1); Sodium 139 mmol/L (137-145); Total Protein 5.9 g/dL (6.3-8.2)
[2022-02-06 01:39] LABS: Anisocytosis 2+; Ovalocytes 1+; Poikilocytosis 1+; Procalcitonin 0.59 ng/mL (<0.5)
[2022-02-06 01:40] LABS: Schistocytes 1+
[2022-02-06] MEDS: VANCOMYCIN 2,000 MG/400 ML PIGGYBACK 200 MG IV (02:24)
[2022-02-06] MEDS: HYDROMORPHONE 0.5 MG INJ IV (02:54)
[2022-02-06 03:08] LABS: Reflexed Lactate in 2 Hours Y
[2022-02-06 03:33] LABS: Lactate 2HR (Lactic Acid Rflx) 3.4 mmol/L (0.7-2.1)
[2022-02-06] MEDS: LACTATED RINGERS 1,000 ML 1000 ML IV ×2 (04:30→10:13)
[2022-02-06 06:13] LABS: Bacteria Urine Occasional (0-1); Calcium Oxalate Crystals Urine Occasional; RBC Urine 1-5/HPF (0-5/HPF); Squamous Epithelial Cell Urine None Seen (0-5/HPF); WBC Urine None Seen (0-5/HPF)
[2022-02-06 06:14] LABS: Culture Indicated Urine Cult Not Indicated
[2022-02-06 06:40] LABS: COVID19 -Nasal RAPID Negative (Negative)
--- NOTE | 2022-02-06 08:51 | DI.US.S_ITS ---
PROCEDURE: US PERIPH VENOUS LOW EXTREM RT INDICATIONS: r/o vte TECHNIQUE: Real-time imaging, as well as color and pulse Doppler interrogation, were performed of the lower extremity deep veins from the inguinal ligament to the popliteal fossa. COMPARISON: None. FINDINGS: Nonocclusive thrombus is present within the superior aspect of the femoral vein at the bifurcation of the common femoral vein. Nonocclusive thrombus is also present within the superior aspect of the profunda vein. The popliteal vein and the distal femoral vein are patent. IMPRESSION: Nonocclusive thrombus within the superior aspect of the femoral vein and the profunda vein. Dictated by: Daily Fernando M.D. on 02/06/2022 at 10:14 Approved by: Daily Fernando M.D. on 02/06/2022 at 10:15
[2022-02-06] MEDS: cefTRIAXone 1,000 MG in SODIUM CHLORIDE 0.9% 100 ML 200 MG IV (10:12)
[2022-02-06] MEDS: ENOXAPARIN 40 MG/0.4 ML SYRINGE SUBCUT (10:12)
[2022-02-06] MEDS: ASPIRIN EC 81 MG TABLET PO (10:13)
[2022-02-06] MEDS: dexAMETHasone 4 MG TABLET PO ×2 (10:13→21:41)
[2022-02-06 11:27] LABS: Lactate (Lactic Acid) 2.9 mmol/L (0.7-2.1)
[2022-02-06] MEDS: HYDROCODONE/ACET 5/325 TABLET 1 TAB PO ×2 (11:45→21:47)
--- NOTE | 2022-02-06 12:28 | CM.DANOTE ---
Initial Discharge Planning Assessment: Case received, EMR reviewed. Met with patient, introduced self and role. PCP: Dr Griffin Bourgeois Payer: [facility] Advantage 76 year old pleasant, A/O patient who was admitted early this morning via ambulance for right leg pain and swelling. He is diagnosed with cellulitis and does have some superficial skin breakdown to lower leg(s). He has h/o cancer for which he has received radiation. He is set to start chemo in early February. P: DCP to follow. Spouse will provide discharge transport. [place] Discharge Planning/Care Management CM Discharge Assessment Start: 02/06/22 12:20 Freq: Status: Active Protocol: Document 02/06/22 12:20 (Rec: 02/06/22 12:28 [id number]) Discharge Planning Assessment Assigned Analytics Lead Tammy Perez RN/DCP Advance Directives? No History Provided By Patient,Medical Record Prior Living Arrangements House Household Members spouse Type of transporation used prior to Drives own vehicle admit Independent with ADL's Yes Is patient alert and oriented? Yes Caregiver for Another No Barriers to Discharge No Discharge Plan Home Referrals Initiated None needed Additional Comment May need RN for leg swelling and breakdown management but would have to be homebound. Explained. Review Status In Process Next Review Type Continued Stay Review
--- NOTE | 2022-02-06 12:38 | P.HP_ITS ---
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 Currently undergoing radiation therapy and soon to start chemotherapy patient also has a history of coronary artery disease lumbar degenerative disc disease BPH hypertension hyperlipidemia. Patient presented to the emergency department with the increasing lower extremity swelling. Patient had swelling that increased over the last 2-3 weeks. He had an outpatient ultrasound done week ago which showed no concerning blood clot. Patient states yesterday he began to have severe pain in his right leg became quite red irritated and uncomfortable. Patient presented to the emergency department and was diagnosed with cellulitis. Patient states that his called the ambulance after the severe onset of the pain and discomfort. He said he has not had any fevers that he is aware of. He has noticed some increasing weakness. He has noticed increasing loss of appetit e. In the emergency department he had an evaluation and was shown to have a mildly elevated procalcitonin mildly elevated lactic acid normal white blood cell count patient was started on IV antibiotics with vancomycin and admitted to the hospital. A seen and evaluated the patient multiple times today and also discussed his care with his . Patient History Medical History Anemia Ruiz's esophagus with dysplasia Bladder cancer (04/06/10) Cancer of brain (~12/27/21) Chronic low back pain HLD (hyperlipidemia) Hypertension, essential, benign Kidney stones Osteoarthritis Pneumonia Primary osteoarthritis of knees, bilateral Renal mass, left Surgical History History of arthroplasty of right hip (06/29/20) History of bladder surgery (~2009) History of esophagogastroduodenoscopy (EGD) (07/20/16) History of hernia repair (1969) History of hernia repair (1986) History of kidney surgery Hx of heart artery stent (2017) Family & Social History Social History: household members spouse Prior Living Arrangements House Safety & Behavioral: Feels Safe in Current Yes Environment Been Physically Hurt or No Threatened By a Person Tobacco & Substance use: Smoking Status Never smoker alcohol intake current alcohol intake frequency a few times a week Substance Use Type does not use Meds Home Medications and Allergies Home Medications Medication Instructions Recorded Confirmed Type atorvastatin 80 mg tablet 80 mg PO BEDTIME 05/08/18 02/06/22 History carvedilol 6.25 mg tablet 6.25 mg PO BID 05/08/18 02/06/22 History amlodipine 10 mg tablet 10 mg PO DAILY 06/22/20 02/06/22 History lisinopril 20 mg tablet 40 mg PO BEDTIME 06/22/20 02/06/22 History aspirin 81 mg tablet,delayed 81 mg PO DAILY 11/27/21 02/06/22 History release (Adult Low Dose Aspirin) ezetimibe 10 mg tablet 10 mg PO DAILY 11/27/21 02/06/22 History acetaminophen 325 mg capsule 650 mg PO QID PRN pain #60 caps 01/26/22 02/06/22 Rx (Tylenol) dexamethasone 4 mg tablet 4 mg PO BID 02/06/22 02/06/22 History omeprazole 40 mg capsule,delayed 40 mg PO DAILY 02/06/22 02/06/22 History release Allergies Allergy/AdvReac Type Severity Reaction Status Date / Time Penicillins [PENICILLINS] Allergy Intermediate Hives Verified 01/26/22 10:30 Exam Vital Signs (past 8 hours): - 02/06/22 05:00 02/06/22 05:00 02/06/22 05:30 Temperature Pulse Rate 94 H Respiratory Rate 17 Blood Pressure 99/58 L 102/72 Pulse Oximetry Oxygen Flow Rate 02/06/22 05:30 02/06/22 06:27 02/06/22 08:33 Temperature 99.9 F H 97.8 F Pulse Rate 96 H 99 H 89 Respiratory Rate 26 H 18 17 Blood Pressure 110/65 101/58 L Pulse Oximetry 97 96 Oxygen Flow Rate 0 Oxygen Delivery Method Room Air Oxygen Flow Rate 0 Narrative Exam Narrative: Gen.: Alert good historian somewhat weak. HEENT: Pupils equal round and reactive or mucosa is moist neck is supple Cardio: S1-S2 regular Respiratory: Normal respiratory effort no wheezes or crackles Abdomen: Soft nontender no rebound or guarding Extremities: Bilateral lower extremity edema redness of his of right lower extremity from his ankle to his knee it is warm to the touch he has some superficial excoriations on his right leg as well as left leg Objective Labs Result Diagrams: 02/06/22 00:56 02/06/22 13:45 Labs: Laboratory Results - last 24 hr 02/06/22 02/06/22 02/06/22 00:56 00:56 00:56 WBC 4.5 RBC 4.52 Hgb 12.8 L Hct 38.8 L MCV 85.7 MCH 28.3 MCHC 33.0 RDW 21.9 H Plt Count 109 L Neut % (Auto) 86.9 H Lymph % (Auto) 11.1 L [place] % (Auto) 1.5 L Eos % (Auto) 0.1 L Baso % (Auto) 0.4 Neut # (Auto) 3900 Lymph # (Auto) 500 L [place] # (Auto) 100 Eos # (Auto) 0 Baso # (Auto) 0 RBC Morphology See below Poikilocytosis 1+ H Anisocytosis 2+ H Ovalocytes 1+ H Schistocytes 1+ H PT 11.6 INR 1.0 APTT 27 Sodium 139 Potassium 3.7 Chloride 107 Carbon Dioxide 24 BUN 24 H Creatinine 1.03 Estimated GFR > 60 BUN/Creatinine Ratio 23.3 H Glucose 149 H Lactate Calcium 9.3 Total Bilirubin 0.8 AST 22 ALT 30 Alkaline Phosphatase 69 Total Protein 5.9 L Albumin 3.2 L Globulin 2.7 Albumin/Globulin Ratio 1.2 Lipase 82 Procalcitonin 0.59 H Urine RBC Urine WBC Ur Squamous Epith Cells Calcium Oxalate Crystal Urine Bacteria Ur Culture Indicated? Nasal Screen MRSA (PCR) SARS-CoV-2 (PCR) 02/06/22 02/06/22 02/06/22 00:56 03:15 05:45 WBC RBC Hgb Hct MCV MCH MCHC RDW Plt Count Neut % (Auto) Lymph % (Auto) [place] % (Auto) Eos % (Auto) Baso % (Auto) Neut # (Auto) Lymph # (Auto) [place] # (Auto) Eos # (Auto) Baso # (Auto) RBC Morphology Poikilocytosis Anisocytosis Ovalocytes Schistocytes PT INR APTT Sodium Potassium Chloride Carbon Dioxide BUN Creatinine Estimated GFR BUN/Creatinine Ratio Glucose Lactate 2.6 H 3.4 H Calcium Total Bilirubin AST ALT Alkaline Phosphatase Total Protein Albumin Globulin Albumin/Globulin Ratio Lipase Procalcitonin Urine RBC Urine WBC Ur Squamous Epith Cells Calcium Oxalate Crystal Urine Bacteria Ur Culture Indicated? Nasal Screen MRSA (PCR) SARS-CoV-2 (PCR) Negative 02/06/22 02/06/22 02/06/22 05:47 06:25 09:44 WBC RBC Hgb Hct MCV MCH MCHC RDW Plt Count Neut % (Auto) Lymph % (Auto) [place] % (Auto) Eos % (Auto) Baso % (Auto) Neut # (Auto) Lymph # (Auto) [place] # (Auto) Eos # (Auto) Baso # (Auto) RBC Morphology Poikilocytosis Anisocytosis Ovalocytes Schistocytes PT INR APTT Sodium Potassium Chloride Carbon Dioxide BUN Creatinine Estimated GFR BUN/Creatinine Ratio Glucose Lactate 2.9 H Calcium Total Bilirubin AST ALT Alkaline Phosphatase Total Protein Albumin Globulin Albumin/Globulin Ratio Lipase Procalcitonin Urine RBC 1-5/hpf D Urine WBC None seen Ur Squamous Epith Cells None seen Calcium Oxalate Crystal Occasional H Urine Bacteria Occasional (0-1) Ur Culture Indicated? Cult not indicated Nasal Screen MRSA (PCR) Negative for mrsa SARS-CoV-2 (PCR) Assessment & Plan Assessment & Plan narrative: Right lower extremity cellulitis. Patient had cellulitis on admission to the hospital. Patient was initially given vancomycin in the emergency department has MRSA screen was negative. He will be changed from vancomycin to ceftriaxone. He has allergic E to penicillin but it was mild and feel like this is an appropriate choice of antibiotic for this patient. Patient has a normal white blood cell count mildly at elevated lactic acid and procalcitonin. His blood pressures been a little bit soft during his initial evaluation in normally he is on multi blood pressure medication and this will be held. At the end of the morning his blood pressure improved. His blood culture results did come back presumptive positive for E coli which is most likely source would be has lower extremity. Ceftriaxone would be a good antibiotic for this. Right lower extremity venous thromboembolus patient has a venous thromboembolism his right lower extremit present before admission to the hospital.. Patient high risk of this due to his stage IV esophageal cancer. On review of the literature recommendations for anticoagulation in this high risk patient is apixaban 5 mg twice a day. Because of his esophage cancer he is at high risk for bleeding. Patient has no previa risk of bleeding. He has no significant liver disease although he does have liver lesions his INR is normal. Patient recently underwent a surgical procedure with a port placement and had no problems with bleeding there. Reviewed the risks and benefits of the full anticoagulation with this patient and feel like apixaban would be the best medi cation for this patient we will closely monitor for bleeding. Acute kidney injury patient with acute kidney injury and increased elevation of his creatinine above baseline. Fluid hydration has been provided. This is most likely due to infection and low blood pressure says blood pressure improves ice anticipate this to improve. Esophageal cancer stage IV. Currently undergoing radiation treatment for the brain. And anticipating chemotherapy Coronary artery disease patient has known history of coronary artery disease without current symptoms. He is on a beta-kilo and a statin and an aspirin. His aspirin will be held due to her starting him on oral anticoagulation. Will continue with a statin. His beta-kilo will be held due to his low blood pressure we will reinstitute that when his blood pressure is better. Hypertension. On a beta-kilo calcium channel kilo and RIP-inhibitor. These medications will hold until his blood pressure improves. Hyperlipidemia will continue with statin medication Disposition and plan. Admit as inpatient For most hemodynamically stable patients with cancer-associated VTE who do not have severe renal insufficiency (eg, creatinine clearance <30 mL/minute) or a contraindication, we prefer either an oral factor Xa inhibitor or LMW heparin rather than IV UFH followed by?warfarin . Factor Xa inhibitors are frequently chosen to avoid the daily injections required for LMW heparin, although other fa ctors may also weigh into this decision ?Factor Xa inhibitors?? Among the factor Xa inhibitors,?apixaban ?is our preferred?monotherapeutic?option (ie, administered without an initial five days of parenteral heparin). This preference is based upon a single randomized trial that reported similar efficacy and safety compared with LMW heparin [20 ] and growing experience with this agent in this population; also, apixaban may carry a lower bleeding risk, particularly from the gastrointestinal (GI) tract, as compared with other oral factor Xa inhibitors , Time Spent With Patient Critical Care time: I spent a total of [] minutes of critical care time on this patient's care today; this time is exclusive of procedural time. Quality VTE Deep Vein Thrombosis/Pulmonary Embolism Present on Admission: Yes
[2022-02-06 13:16] LABS: Reflexed Lactate in 2 Hours Y
[2022-02-06 14:09] LABS: BUN Creatinine Ratio 22.5 (6-22); Blood Urea Nitrogen 23 mg/dL (9-20); Calcium 8.6 mg/dL (8.4-10.2); Carbon Dioxide 23 mmol/L (22-32); Chloride 109 mmol/L (98-107); Estimated Glomerular Filt Rate > 60 mL/min (>60); Glucose 102 mg/dL (80-110); HEMOLYSIS < 15 (0-50); Potassium 3.5 mmol/L (3.4-5.1); Sodium 136 mmol/L (137-145)
[2022-02-06 14:10] LABS: Lactate 2HR (Lactic Acid Rflx) 1.9 mmol/L (0.7-2.1)
[2022-02-06 15:45] LABS: Acinetobacter baumannii Not Detected (Not Detect); Enterobacteriaceae species Detected (Not Detect); Enterococcus species Not Detected (Not Detect); Listeria monocytogenes Not Detected (Not Detect); Staphylococcus species Not Detected (Not Detect); Streptococcus agalactiae (Gr B Not Detected (Not Detect); Streptococcus pneumonia Not Detected (Not Detect); Streptococcus pyogenes (Gr A) Not Detected (Not Detect); Streptococcus species Not Detected (Not Detect)
[2022-02-06 15:46] LABS: Candida albicans Not Detected (Not Detect); Candida glabrata Not Detected (Not Detect); Candida krusei Not Detected (Not Detect); Candida parapsilosis Not Detected (Not Detect); Candida tropicalis Not Detected (Not Detect); E. coli Detected (Not Detect); Enterobacter cloacae complex Not Detected (Not Detect); Haemophilus influenzae Not Detected (Not Detect); KPC (carbapenem-resist gene) Not Detected (Not Detect); Neisseria meningitidis Not Detected (Not Detect); Proteus species Not Detected (Not Detect); Pseudomonas aeruginosa Not Detected (Not Detect); Serratia marcescens Not Detected (Not Detect)
[2022-02-06] MEDS: carvediloL 12.5 MG TABLET 6.25 MG PO (21:41)
[2022-02-06] MEDS: ATORVASTATIN 20 MG TABLET 80 MG PO (21:41)
--- NOTE | 2022-02-06 23:40 | PC.NURSE ---
Patient reports improvement in pain with use of Vicodin. RLE remains erythemic with 4 + edema. Elevated on a pillow. LLE with several lesions with light scabbing. Teodoro LE edema 4+, PP + teodoro. Patient encouraged to ankle wave and calf pump and C.DB hourly while awake. Rationale for each explained, and patient able to return demonstrate amd agreeable.
[2022-02-07 02:00] VITALS: BP 107/69; PULSE 74; RESP 18; TEMP 36.6; O2SAT 95
[2022-02-07] MEDS: PANTOPRAZOLE DR 40 MG TABLET PO (05:24)
[2022-02-07 05:25] LABS: Add Manual Diff / Slide Review NO; Basophils Absolute Auto 0 /uL (0-100); Basophils Percent Auto 0.2 % (0-2); Eosinophils Absolute Auto 0 /uL (0-450); Hematocrit 33.6 % (41-53); Hemoglobin 11.3 g/dL (13.5-17.5); Lymphocytes Absolute Auto 500 /uL (1100-4500); Lymphocytes Percent Auto 4.7 % (25-40); Mean Corpuscular HGB Conc 33.6 % (30-36); Mean Corpuscular Hemoglobin 29.1 PG (26-34); Mean Corpuscular Volume 86.5 fL (80-100); Monocytes Absolute Auto 700 /uL (0-900); Monocytes Percent Auto 5.9 % (3-14); Neutrophils Absolute Auto 10500 /uL (1500-7000); Neutrophils Percent Auto 89.2 % (50-75); Red Blood Cell Count 3.89 X10^6/uL (4.5-5.9); White Blood Cell Count 11.8 X10^3/uL (4.5-11.0)
[2022-02-07 05:31] LABS: Platelet Count 79 X10^3/uL (150-400)
[2022-02-07 05:40] LABS: Alanine Aminotransferase 23 IU/L (<50); Albumin 2.6 g/dL (3.5-5.0); Alkaline Phosphatase 54 U/L (38-126); Aspartate Aminotransferase 23 IU/L (17-59); BUN Creatinine Ratio 24.2 (6-22); Blood Urea Nitrogen 24 mg/dL (9-20); Calcium 8.8 mg/dL (8.4-10.2); Carbon Dioxide 25 mmol/L (22-32); Chloride 109 mmol/L (98-107); Estimated Glomerular Filt Rate > 60 mL/min (>60); Globulin 2.6 g/dL (1.7-4.1); Glucose 127 mg/dL (80-110); HEMOLYSIS < 15 (0-50); Sodium 135 mmol/L (137-145); Total Protein 5.2 g/dL (6.3-8.2)
[2022-02-07 06:03] LABS: Acanthocytes 2+; Anisocytosis 2+; Ovalocytes 1+
[2022-02-07 06:05] LABS: Poikilocytosis 2+; Schistocytes 1+
[2022-02-07 08:05] VITALS: BP 135/73; PULSE 69; RESP 19; TEMP 36.7; O2SAT 100
--- NOTE | 2022-02-07 08:23 | P.PN_ITS ---
Subjective Subjective Date Patient Seen: 02/07/22 Time Patient Seen: 08:23 Interval history: Patient seen and evaluated this morning did well overnight. Says he is feeling a little bit better today still quite weak. Blood pressure is improved. No fever overnight. White blood cell count elevated. Blood culture positive for E coli preliminary results. Says his appetite is a little bit better. Was able to get up out of bed yesterday is going to try to be a little bit more today. Still complains of right lower extremity pain and swelling. Exam Vital Signs (past 8 hours): - 02/07/22 02:00 02/07/22 08:05 Temperature 97.9 F 98.1 F Pulse Rate 74 69 Respiratory Rate 18 19 Blood Pressure 107/69 135/73 Pulse Oximetry 95 100 Oxygen Flow Rate 0 0 Oxygen Delivery Method Room Air Oxygen Flow Rate 0 Narrative Exam Narrative: Gen.: Alert oriented good historian HEENT: Pupils equal round and reactive or mucosa is moist neck is supple Cardio: Regular rate and rhythm Respiratory: Lungs are clear no wheezes or crackles Abdomen: Soft nontender no masses Extremities: Bilateral lower extremity edema more present on the right than left 3+. Redness and swelling and tenderness to the right leg. Neurologic: Grossly intact. Objective Labs Result Diagrams: 02/07/22 04:57 02/07/22 04:57 Labs: Laboratory Results - last 24 hr 02/06/22 02/06/22 02/06/22 00:56 09:44 13:45 WBC RBC Hgb Hct MCV MCH MCHC RDW Plt Count Neut % (Auto) Lymph % (Auto) [place] % (Auto) Eos % (Auto) Baso % (Auto) Neut # (Auto) Lymph # (Auto) [place] # (Auto) Eos # (Auto) Baso # (Auto) RBC Morphology Poikilocytosis Anisocytosis Ovalocytes Acanthocytes (Spur) Schistocytes Sodium 136 L Potassium 3.5 Chloride 109 H Carbon Dioxide 23 BUN 23 H Creatinine 1.02 Estimated GFR > 60 BUN/Creatinine Ratio 22.5 H Glucose 102 Lactate 2.9 H Calcium 8.6 Total Bilirubin AST ALT Alkaline Phosphatase Total Protein Albumin Globulin Albumin/Globulin Ratio A. baumannii (PCR) Not detected Ade albicans (PCR) Not detected C. glabrata (PCR) Not detected C. krusei (PCR) Not detected C. parapsilosis (PCR) Not detected C. tropicalis (PCR) Not detected Enterobacteriac sp PCR Detected H E. cloacae complex PCR Not detected Enterococcus sp PCR Not detected E. coli (PCR) Detected H H. influenzae (PCR) Not detected Klebsiella oxytoca PCR Not detected Klebsiella pneumoniae Not detected List. monocytogenes PCR Not detected N. meningitidis (PCR) Not detected Proteus species (PCR) Not detected Serratia marcescens PCR Not detected Staphylococcus sp PCR Not detected Staph aureus (PCR) Not detected mecA-Methicil Res Gene Not Reportable Streptococcus sp PCR Not detected Group A Strep (PCR) Not detected Strep agalactiae (PCR) Not detected Strep pneumoniae (PCR) Not detected P. aeruginosa (PCR) Not detected Kahlil/B-Vanco Res Genes Not Reportable KPC-Carbap Res Gene PCR Not detected 02/06/22 02/07/22 02/07/22 13:45 04:57 04:57 WBC 11.8 H D RBC 3.89 L Hgb 11.3 L Hct 33.6 L MCV 86.5 MCH 29.1 MCHC 33.6 RDW 22.0 H Plt Count 79 L Neut % (Auto) 89.2 H Lymph % (Auto) 4.7 L [place] % (Auto) 5.9 Eos % (Auto) 0.0 L Baso % (Auto) 0.2 Neut # (Auto) 83977 H Lymph # (Auto) 500 L [place] # (Auto) 700 Eos # (Auto) 0 Baso # (Auto) 0 RBC Morphology See below Poikilocytosis 2+ H Anisocytosis 2+ H Ovalocytes 1+ H Acanthocytes (Spur) 2+ Schistocytes 1+ H Sodium 135 L Potassium 4.0 Chloride 109 H Carbon Dioxide 25 BUN 24 H Creatinine 0.99 Estimated GFR > 60 BUN/Creatinine Ratio 24.2 H Glucose 127 H Lactate 1.9 Calcium 8.8 Total Bilirubin 1.0 AST 23 ALT 23 Alkaline Phosphatase 54 Total Protein 5.2 L Albumin 2.6 L Globulin 2.6 Albumin/Globulin Ratio 1.0 A. baumannii (PCR) Ade albicans (PCR) C. glabrata (PCR) C. krusei (PCR) C. parapsilosis (PCR) C. tropicalis (PCR) Enterobacteriac sp PCR E. cloacae complex PCR Enterococcus sp PCR E. coli (PCR) H. influenzae (PCR) Klebsiella oxytoca PCR Klebsiella pneumoniae List. monocytogenes PCR N. meningitidis (PCR) Proteus species (PCR) Serratia marcescens PCR Staphylococcus sp PCR Staph aureus (PCR) mecA-Methicil Res Gene Streptococcus sp PCR Group A Strep (PCR) Strep agalactiae (PCR) Strep pneumoniae (PCR) P. aeruginosa (PCR) Kahlil/B-Vanco Res Genes KPC-Carbap Res Gene PCR PFSH Medical History Anemia Ruiz's esophagus with dysplasia Bladder cancer (04/06/10) Cancer of brain (~12/27/21) Chronic low back pain HLD (hyperlipidemia) Hypertension, essential, benign Kidney stones Osteoarthritis Pneumonia Primary osteoarthritis of knees, bilateral Renal mass, left Surgical History History of arthroplasty of right hip (06/29/20) History of bladder surgery (~2009) History of esophagogastroduodenoscopy (EGD) (07/20/16) History of hernia repair (1969) History of hernia repair (1986) History of kidney surgery Hx of heart artery stent (2017) Social History marital status: household members: spouse Smoking Status: Never smoker alcohol intake: current substance use type: does not use Assessment & Plan Assessment and plan (1) Cellulitis of leg, right: Status: Acute Plan Right lower extremity cellulitis.? Positive blood culture for E coli. Probable source lower extremity. Urine culture negative. Continue with ceftriaxone 1 g IV. Patient's white blood cell counts elevated. He is feeling better today clinically improved. Afebrile. Will need a couple more days of IV antibiotics. Right lower extremity venous thromboembolus patient has a venous thromboembolism his right lower extremit present before admission to the hospital. Patient has cancer. Recommended guidelines are starting apixaban 5 mg twice a day. Re viewed risks and benefits of chronic anticoagulation in this patient. Presumed normal liver function his INR and liver enzymes are normal. Risk of bleeding somewhat high due to esophageal cancer. Brain metastases recent radiation to the brain. Stop aspirin stop Lovenox. Start Eliquis 5 mg a day watch closely for signs of significant bleeding. Continue with proton pump inhibitor indefinitely. Acute kidney injury patient with acute kidney injury., patient's kidney function has now returned back to baseline. Received some IV fluid boluses yesterday. Blood pressure and kidney function is normalized. Esophageal cancer stage IV.? Currently undergoing radiation treatment for the brain anticipating chemotherapy here in a few weeks. Call let his oncologist know he is here in the hospital. He has not started chemotherapy yet. Coronary artery disease patient has known history of coronary artery disease without current symptoms.? Continue with beta-kilo and statin. Other blood pressure medications on hold because of some mild hypotension. Hypertension.? Blood pressure medication on hold Hyperlipidemia will continue with statin medication Disposition and plan. Continue IV antibiotics start anticoagulation ambulation diet advancing today. Anticipate hospitalization until Saturday. Discharge planning may need home health. Anticipate patient to go home on oral antibiotics. Time Spent With Patient Critical Care time: I spent a total of [] minutes of critical care time on this patient's care today ; this time is exclusive of procedural time. Quality VTE Deep Vein Thrombosis/Pulmonary Embolism Present on Admission: Yes
[2022-02-07] MEDS: APIXABAN 5 MG TABLET PO ×2 (08:35→20:39)
[2022-02-07] MEDS: dexAMETHasone 4 MG TABLET PO ×2 (08:35→20:39)
[2022-02-07] MEDS: HYDROCODONE/ACET 5/325 TABLET 1 TAB PO ×3 (08:36→20:40)
[2022-02-07] MEDS: SODIUM CHLORIDE 0.9% FLUSH 10 ML IV ×2 (08:36→20:40)
[2022-02-07] MEDS: carvediloL 12.5 MG TABLET 6.25 MG PO ×2 (08:36→20:39)
[2022-02-07] MEDS: cefTRIAXone 1,000 MG in SODIUM CHLORIDE 0.9% 100 ML 200 MG IV (08:36)
[2022-02-07 11:38] VITALS: BP 115/73; PULSE 70; RESP 20; TEMP 36.9; O2SAT 98
--- NOTE | 2022-02-07 13:55 | PC.RNWOUND ---
Right lower extremity reddened with cellulitis appears to be draining serous fluid from small, punctate open area to the anterior leg and medial leg. The rest of the skin appears to be intact. There is an intact bulla to the right dorsal foot, skin prep is applied around bulla margins to protect skin if any drainage occurs. Right leg is on pillow with heel floated on bed. Patient says, The left leg was better at draining so it looks a lot better.
[2022-02-07 16:53] VITALS: BP 139/79; PULSE 70; RESP 22; TEMP 37.5; O2SAT 96
[2022-02-07 20:00] VITALS: BP 118/74; PULSE 71; RESP 17; TEMP 36.9; O2SAT 95
[2022-02-07 20:39] VITALS: BP 118/74; PULSE 71
[2022-02-07] MEDS: ATORVASTATIN 20 MG TABLET 80 MG PO (20:40)
[2022-02-08 04:00] VITALS: BP 124/83; PULSE 61; RESP 16; TEMP 36.5; O2SAT 96
[2022-02-08 05:30] LABS: Add Manual Diff / Slide Review NO; Basophils Absolute Auto 0 /uL (0-100); Basophils Percent Auto 0.2 % (0-2); Eosinophils Absolute Auto 0 /uL (0-450); Hemoglobin 10.7 g/dL (13.5-17.5); Lymphocytes Absolute Auto 400 /uL (1100-4500); Lymphocytes Percent Auto 2.9 % (25-40); Mean Corpuscular HGB Conc 33.5 % (30-36); Mean Corpuscular Hemoglobin 28.4 PG (26-34); Mean Corpuscular Volume 84.6 fL (80-100); Monocytes Absolute Auto 700 /uL (0-900); Monocytes Percent Auto 5.8 % (3-14); Neutrophils Absolute Auto 11000 /uL (1500-7000); Neutrophils Percent Auto 91.1 % (50-75); Platelet Count 98 X10^3/uL (150-400); Red Blood Cell Count 3.79 X10^6/uL (4.5-5.9); Red Cell Distribution Width 22.4 % (11.6-14.8)
[2022-02-08] MEDS: PANTOPRAZOLE DR 40 MG TABLET PO (05:30)
[2022-02-08] MEDS: HYDROCODONE/ACET 5/325 TABLET 1 TAB PO ×3 (05:30→20:51)
[2022-02-08 05:40] LABS: INR 1.5 (0.9-1.3); Prothrombin Time 16.3 SECONDS (10.1-12.7)
[2022-02-08 05:49] LABS: BUN Creatinine Ratio 33.3 (6-22); Blood Urea Nitrogen 26 mg/dL (9-20); Calcium 9.1 mg/dL (8.4-10.2); Carbon Dioxide 23 mmol/L (22-32); Chloride 108 mmol/L (98-107); Estimated Glomerular Filt Rate > 60 mL/min (>60); Glucose 171 mg/dL (80-110); HEMOLYSIS 15 (0-50); Potassium 4.3 mmol/L (3.4-5.1); Sodium 134 mmol/L (137-145)
[2022-02-08 05:53] LABS: Anisocytosis 2+; Ovalocytes 1+; Poikilocytosis 1+
[2022-02-08 05:54] LABS: Acanthocytes 2+; Schistocytes 1+
[2022-02-08] MEDS: dexAMETHasone 4 MG TABLET PO ×2 (08:48→20:39)
[2022-02-08] MEDS: cefTRIAXone 1,000 MG in SODIUM CHLORIDE 0.9% 100 ML 200 MG IV (08:48)
[2022-02-08] MEDS: APIXABAN 5 MG TABLET PO ×2 (08:48→20:39)
[2022-02-08] MEDS: carvediloL 12.5 MG TABLET 6.25 MG PO ×2 (08:48→20:40)
[2022-02-08] MEDS: SODIUM CHLORIDE 0.9% FLUSH 10 ML IV ×2 (08:49→20:43)
[2022-02-08 09:00] VITALS: BP 144/87; PULSE 55; RESP 18; TEMP 35.9; O2SAT 97
--- NOTE | 2022-02-08 09:13 | P.PN_ITS ---
Subjective Subjective Date Patient Seen: 02/08/22 Time Patient Seen: 08:13 Interval history: Patient seen and evaluated this morning. Patient states had a good night feeling a little bit better every day. Has an okay appetite. Balance is good with walking. Still requiring pain medication for pain in his right or leg. Still a lot of redness and swelling and mild drainage. White blood cell count still elevated slightly. Although clinically improving. Exam Vital Signs (past 8 hours): - 02/08/22 04:00 02/08/22 09:00 Temperature 97.7 F 96.6 F L Pulse Rate 61 55 L Respiratory Rate 16 18 Blood Pressure 124/83 144/87 H Pulse Oximetry 96 97 Oxygen Delivery Method Room Air Oxygen Flow Rate 0 Narrative Exam Narrative: Gen.: Alert good historian HEENT: Pupils equal round and reactive or mucosa is moist Cardio: [S1-S2 regular rate and rhythm no murmurs appreciated.] Respiratory: Normal respiratory effort lungs are clear Abdomen: Soft Extremities: Bilateral lower extremity edema worse on the right than left. She realized this with some mild drainage and will a Neurologic: [Grossly intact.] Objective Labs Result Diagrams: 02/08/22 04:53 02/08/22 04:53 Labs: Laboratory Results - last 24 hr 02/08/22 02/08/22 02/08/22 04:53 04:53 04:53 WBC 12.0 H RBC 3.79 L Hgb 10.7 L Hct 32.0 L MCV 84.6 MCH 28.4 MCHC 33.5 RDW 22.4 H Plt Count 98 L Neut % (Auto) 91.1 H Lymph % (Auto) 2.9 L [place] % (Auto) 5.8 Eos % (Auto) 0.0 L Baso % (Auto) 0.2 Neut # (Auto) 91933 H Lymph # (Auto) 400 L [place] # (Auto) 700 Eos # (Auto) 0 Baso # (Auto) 0 RBC Morphology See below Poikilocytosis 1+ H Anisocytosis 2+ H Ovalocytes 1+ H Acanthocytes (Spur) 2+ Schistocytes 1+ H PT 16.3 H INR 1.5 H Sodium 134 L Potassium 4.3 Chloride 108 H Carbon Dioxide 23 BUN 26 H Creatinine 0.78 Estimated GFR > 60 BUN/Creatinine Ratio 33.3 H Glucose 171 H Calcium 9.1 PFSH Medical History Anemia Ruiz's esophagus with dysplasia Bladder cancer (04/06/10) Cancer of brain (~12/27/21) Chronic low back pain HLD (hyperlipidemia) Hypertension, essential, benign Kidney stones Osteoarthritis Pneumonia Primary osteoarthritis of knees, bilateral Renal mass, left Surgical History History of arthroplasty of right hip (06/29/20) History of bladder surgery (~2009) History of esophagogastroduodenoscopy (EGD) (07/20/16) History of hernia repair (1969) History of hernia repair (1986) History of kidney surgery Hx of heart artery stent (2017) Social History marital status: household members: spouse Smoking Status: Never smoker alcohol intake: current substance use type: does not use Assessment & Plan Assessment & Plan narrative: Right lower extremity cellulitis.? Positive blood culture for E coli.? Continue with ceftriaxone. Leg is still swollen red and having drainage. Local wound care is happening. Keep leg elevated. Pain still present and requiring oral pain medication but improving. Clinically patient appears improved. White blood cell count mildly elevated. Overall patient is generally feeling better as well. Right lower extremity venous thromboembolus patient has a venous thromboembolism his right lower extremit present before admission to the hospital.? Patient with esophageal cancer which places him at high risk for venous thromboembolus. Tole rating Eliquis 5 mg twice a day now. No signs of bleeding at this point. Continue to monitor. Will need anticoagulation most likely indefinitely. Acute kidney injury patient with acute kidney injury. Kidney function normal today. Esophageal cancer stage IV.? Currently undergoing radiation treatment for the brain anticipating chemotherapy here in a few weeks.? Appointment with Oncology has been rescheduled. Anticipate chemotherapy here in the next few weeks. Coronary artery disease patient has known history of coronary artery disease without current symptoms.? Continue with beta-kilo and statin. Hypertension.? Blood pressure improved today. Will continue working with the better blood pressure control and reinstitute blood pressure medication Hyperlipidemia will continue with statin medication Disposition and plan.? Continue IV antibiotics anticoagulation discharge home tomorrow with oral antibiotics.. Time Spent With Patient Critical Care time: I spent a total of [] minutes of critical care time on this patient's care today; this time is exclusive of procedural time. Quality VTE Deep Vein Thrombosis/Pulmonary Embolism Present on Admission: Yes
[2022-02-08 17:00] VITALS: BP 137/79; PULSE 64; RESP 20; TEMP 36.1; O2SAT 100
[2022-02-08 20:00] VITALS: BP 147/93; PULSE 72; RESP 17; TEMP 36.7; O2SAT 97
[2022-02-08 20:39] VITALS: BP 147/93; PULSE 72
[2022-02-08] MEDS: ATORVASTATIN 20 MG TABLET 80 MG PO (20:39)
[2022-02-08] MEDS: lisinopriL 20 MG TABLET 40 MG PO (20:39)
[2022-02-08 20:40] VITALS: BP 147/93; PULSE 72
[2022-02-09 04:00] VITALS: BP 143/60; PULSE 63; RESP 16; TEMP 36.4; O2SAT 97
[2022-02-09] MEDS: HYDROCODONE/ACET 5/325 TABLET 1 TAB PO (04:49)
[2022-02-09] MEDS: PANTOPRAZOLE DR 40 MG TABLET PO (05:42)
--- NOTE | 2022-02-09 08:05 | PM.DS.1 ---
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 Currently undergoing radiation therapy and soon to start chemotherapy patient also has a history of coronary artery disease lumbar degenerative disc disease BPH hypertension hyperlipidemia. Patient presented to the emergency department with the increasing lower extremity swelling. Patient had swelling that increased over the last 2-3 weeks. He had an outpatient ultrasound done week ago which showed no concerning blood clot. Patient states yesterday he began to have severe pain in his right leg became quite red irritated and uncomfortable. Patient presented to the emergency department and was diagnosed with cellulitis. Patient states that his called the ambulance after the severe onset of the pain and discomfort. He said he has not had any fevers that he is aware of. He has noticed some increasing weakness. He has noticed increasing loss of appetite. In the emergency department he had an evaluation and was shown to have a mildly elevated procalcitonin mildly elevated lactic acid normal white blood cell count patient was started on IV antibiotics with vancomycin and admitted to the hospital. A seen and evaluated the patient multiple times today and also discussed his care with his . Discharge Providers Provider Date of admission: 02/06/22 03:01 Discharge Date: 02/09/22 Primary care physician: Griffin Bourgeois MD Consults: 02/07/22 09:34 Consult to Inpatient Wound Care Nurse Routine Comment: Reason for consultation: RLE cellulitis Discharge provider: Griffin Bourgeois MD Summary Hospital Course Hospital Course: Right lower extremity cellulitis.? Patient admitted the hospital with right lower extremity cellulitis. Blood cultures positive for E coli and Gram-negative bacilli. Them icy pending at this point. Patient was initially started on vancomycin and then switched to ceftriaxone. Patient had a slight bump of his white blood cell count. During his hospital stay his infection and swelling his lower extremity improved significantly as well as the pain. The time of discharge redness and swelling with down. Pain was down. He was afebrile had normal vital signs. And ready to be discharged. Patient will be discharged home on oral cephalosporins. Right lower extremity venous thromboembolus patient has a venous thromboembolism his right lower extremit present before admission to the hospital.? In his workup for his cellulitis. Patient had a repeat ultrasound that he had an ultrasound done a week ago because of lower extremity swelling which was negative. Patient is high risk for venous thromboembolism because of his active cancer. His ultrasound showed today blood clot. Patient was started on apixaban 5 mg twice a day during his hospital stay. Patient will be continued on this probably indefinitely while he is going to his cancer treatment. After monitor closely for his symptoms and signs of bleeding and risks of this were discussed with the patient. Acute kidney injury patient with acute kidney injury.? On admission the hospital patient has some hypotension. Patient had a bump of his creatinine. He was given IV fluid hydration kidney function returned back to normal as well as blood pressure. Esophageal cancer stage IV.? Continuing to be active. Recent radiation treatment. Anticipation of chemotherapy starting on February 19. Coronary artery disease patient has known history of coronary artery disease without current symptoms.? Continue with beta-kilo statin. Will have him stop his aspirin and he will now be on full-time anticoagulation. Hypertension.? Patient's blood pressure was controlled he was alert initially a little hypotensive his blood pressure medication was held that been reinstituted after discharge. Hyperlipidemia will continue with statin medication Exam Vital Signs (past 8 hours): - 02/09/22 04:00 Temperature 97.6 F Pulse Rate 63 Respiratory Rate 16 Blood Pressure 143/60 H Pulse Oximetry 97 Oxygen Delivery Method Room Air Oxygen Flow Rate 0 Objective Labs Result Diagrams: 02/08/22 04:53 02/08/22 04:53 [facility] Medical History Anemia Ruiz's esophagus with dysplasia Bladder cancer (04/06/10) Cancer of brain (~12/27/21) Chronic low back pain HLD (hyperlipidemia) Hypertension, essential, benign Kidney stones Osteoarthritis Pneumonia Primary osteoarthritis of knees, bilateral Renal mass, left Surgical History History of arthroplasty of right hip (06/29/20) History of bladder surgery (~2009) History of esophagogastroduodenoscopy (EGD) (07/20/16) History of hernia repair (1969) History of hernia repair (1986) History of kidney surgery Hx of heart artery stent (2017) Social History marital status: household members: spouse Smoking Status: Never smoker alcohol intake: current substance use type: does not use Discharge Plan Discharge Plan Patient Disposition: Home Discharge orders & Medications Prescriptions: New Eliquis 5 mg Tablet 5 mg PO BID Qty: 60 3RF cefdinir 300 mg capsule 300 mg PO BID Qty: 14 0RF Continued ezetimibe 10 mg tablet 10 mg PO DAILY atorvastatin 80 mg tablet 80 mg PO BEDTIME carvedilol 6.25 mg tablet 6.25 mg PO BID acetaminophen [Tylenol] 325 mg capsule 650 mg PO QID PRN (Reason: pain) Qty: 60 0RF omeprazole 40 mg Capsule,Delayed Release(Dr/Ec) 40 mg PO DAILY dexamethasone 4 mg Tablet 4 mg PO BID lisinopril 20 mg tablet 40 mg PO BEDTIME amlodipine 10 mg Tablet 10 mg PO DAILY Discontinued aspirin [Adult Low Dose Aspirin] 81 mg tablet,delayed release (DR/EC) 81 mg PO DAILY Follow up/Referrals: Griffin Bourgeois MD [Primary Care Provider] - Discharge Data Primary Care Provider: Griffin Bourgeois Quality VTE Deep Vein Thrombosis/Pulmonary Embolism Present on Admission: Yes
[2022-02-09] MEDS: APIXABAN 5 MG TABLET PO (08:53)
[2022-02-09] MEDS: AMLODIPINE 5 MG TABLET 10 MG PO (08:53)
[2022-02-09] MEDS: dexAMETHasone 4 MG TABLET PO (08:53)
[2022-02-09 08:54] VITALS: BP 143/60; PULSE 63
[2022-02-09] MEDS: carvediloL 12.5 MG TABLET 6.25 MG PO (08:54)
[2022-02-09] MEDS: SODIUM CHLORIDE 0.9% FLUSH 10 ML IV (08:56)
[2022-02-09] MEDS: cefTRIAXone 1,000 MG in SODIUM CHLORIDE 0.9% 100 ML 200 MG IV (08:56)
== END 2022-02-09 12:30 | disposition home or self-care (01) | DRG 603 ==
LOC: ED 01:36 → AC 03:02 → ICU 06:14
PROVIDERS: Admitting Provider Family Medicine; Emergency Provider Emergency Medicine; Family Provider Family Medicine; PCP Family Medicine; Referring Provider Emergency Medicine; Visit Provider Family Medicine
DX: L03.115 Cellulitis of right lower limb (principal); I82.411 Acute embolism and thrombosis of right femoral vein; C15.9 Malignant neoplasm of esophagus, unspecified; C78.7 Secondary malignant neoplasm of liver and intrahepatic bile duct; C79.31 Secondary malignant neoplasm of brain; N17.9 Acute kidney failure, unspecified; R78.81 Bacteremia; B96.20 Unspecified Escherichia coli [E. coli] as the cause of diseases classified elsewhere; I25.10 Atherosclerotic heart disease of native coronary artery without angina pectoris; E78.5 Hyperlipidemia, unspecified; I10 Essential (primary) hypertension; Z20.822 Contact with and (suspected) exposure to COVID-19
CPT/HCPCS: 36415; 71045; 80048; 80053; 81003; 81015; 83605; 83690; 84145; 85025; 85610; 85730; 87040; 87150; 87186; 87205; 87635; 87797; 93005; 93971; 96365; 96366; 96375; 99223; 99232; 99238; 99284; C9803; J0696; J1170; J1650

== ENCOUNTER → 2022-02-26 15:49 | Outpatient (CLI) | payer OTHER, SELFPAY ==
[2022-02-06 06:17] VITALS: BMI 32.2
== END ==
PROVIDERS: Family Provider Family Medicine; PCP Family Medicine; Visit Provider Family Medicine
DX: S81.801A Unspecified open wound, right lower leg, initial encounter (principal)
CPT/HCPCS: 87070; 87075; 87205

== ENCOUNTER → 2022-02-28 15:40 | Outpatient (CLI) | payer OTHER, SELFPAY ==
[2022-02-06 06:17] VITALS: BMI 32.2
== END ==
PROVIDERS: Family Provider Family Medicine; PCP Family Medicine; Referring Provider Family Medicine; Visit Provider Family Medicine
DX: I87.2 Venous insufficiency (chronic) (peripheral) (principal); L97.512 Non-pressure chronic ulcer of other part of right foot with fat layer exposed; L97.812 Non-pressure chronic ulcer of other part of right lower leg with fat layer exposed; L97.822 Non-pressure chronic ulcer of other part of left lower leg with fat layer exposed; R60.0 Localized edema; L53.9 Erythematous condition, unspecified; B96.5 Pseudomonas (aeruginosa) (mallei) (pseudomallei) as the cause of diseases classified elsewhere; L03.115 Cellulitis of right lower limb; C15.9 Malignant neoplasm of esophagus, unspecified; C79.31 Secondary malignant neoplasm of brain; Z79.52 Long term (current) use of systemic steroids; Z92.21 Personal history of antineoplastic chemotherapy; Z79.01 Long term (current) use of anticoagulants; Z86.718 Personal history of other venous thrombosis and embolism; E11.9 Type 2 diabetes mellitus without complications
CPT/HCPCS: 11042; 11045; 99204; 99213

== ENCOUNTER → 2022-03-06 11:58 | Outpatient (ROUT) | payer OTHER, SELFPAY ==
[2022-02-06 06:17] VITALS: BMI 32.2
[2022-03-06 12:13] LABS: Add Manual Diff / Slide Review YES; Hematocrit 33.9 % (41-53); Hemoglobin 11.3 g/dL (13.5-17.5); Mean Corpuscular HGB Conc 33.2 % (30-36); Mean Corpuscular Hemoglobin 29.9 PG (26-34); Platelet Count 138 X10^3/uL (150-400); Red Blood Cell Count 3.77 X10^6/uL (4.5-5.9); Red Cell Distribution Width 21.4 % (11.6-14.8); White Blood Cell Count 2.5 X10^3/uL (4.5-11.0)
[2022-03-06 12:16] LABS: BUN Creatinine Ratio 31.9 (6-22); Blood Urea Nitrogen 30 mg/dL (9-20); Calcium 9.6 mg/dL (8.4-10.2); Carbon Dioxide 17 mmol/L (22-32); Chloride 110 mmol/L (98-107); Estimated Glomerular Filt Rate > 60 mL/min (>60); Glucose 157 mg/dL (80-110); HEMOLYSIS < 15 (0-50); Potassium 4.3 mmol/L (3.4-5.1); Sodium 135 mmol/L (137-145)
[2022-03-06 12:37] LABS: Neutrophils Absolute Manual 1500 /uL (3000-5900); Total Cells Counted 100
[2022-03-06 12:38] LABS: Anisocytosis 2+; Poikilocytosis 2+; Polychromasia 1+
== END ==
PROVIDERS: Family Provider Family Medicine; PCP Family Medicine; Visit Provider Family Medicine
DX: L03.116 Cellulitis of left lower limb (principal); L03.115 Cellulitis of right lower limb; C79.31 Secondary malignant neoplasm of brain; C15.5 Malignant neoplasm of lower third of esophagus
CPT/HCPCS: 80048; 85007; 85025

== ENCOUNTER → 2022-03-07 14:56 | Outpatient (CLI) | payer OTHER, SELFPAY ==
[2022-02-06 06:17] VITALS: BMI 32.2
== END ==
PROVIDERS: Family Provider Family Medicine; PCP Family Medicine; Referring Provider Family Medicine; Visit Provider Family Medicine
DX: I87.2 Venous insufficiency (chronic) (peripheral) (principal); L97.512 Non-pressure chronic ulcer of other part of right foot with fat layer exposed; L97.812 Non-pressure chronic ulcer of other part of right lower leg with fat layer exposed; L97.822 Non-pressure chronic ulcer of other part of left lower leg with fat layer exposed; R60.0 Localized edema
CPT/HCPCS: 93922

== ENCOUNTER → 2022-03-14 15:19 | Outpatient (CLI) | payer OTHER, SELFPAY ==
[2022-02-06 06:17] VITALS: BMI 32.2
== END ==
PROVIDERS: Family Provider Family Medicine; PCP Family Medicine; Referring Provider Family Medicine; Visit Provider Family Medicine
DX: I87.2 Venous insufficiency (chronic) (peripheral) (principal); L97.512 Non-pressure chronic ulcer of other part of right foot with fat layer exposed; L97.812 Non-pressure chronic ulcer of other part of right lower leg with fat layer exposed; L97.822 Non-pressure chronic ulcer of other part of left lower leg with fat layer exposed; S51.801A Unspecified open wound of right forearm, initial encounter; S01.80XA Unspecified open wound of other part of head, initial encounter; Z92.21 Personal history of antineoplastic chemotherapy; Z79.52 Long term (current) use of systemic steroids; Z79.01 Long term (current) use of anticoagulants; B35.3 Tinea pedis; C15.9 Malignant neoplasm of esophagus, unspecified; E09.65 Drug or chemical induced diabetes mellitus with hyperglycemia
CPT/HCPCS: 11042; 11045; 87070; 87075; 87205; 97597; 99214

== ENCOUNTER 2022-03-14 16:35 | Emergency (ER) | payer OTHER, SELFPAY ==
[2022-02-06 06:17] VITALS: BMI 32.2
[2022-03-14 16:40] VITALS: BP 143/87; PULSE 71; RESP 18; TEMP 36.3; O2SAT 99; BMI 25.4
--- NOTE | 2022-03-14 16:50 | DI.CT.S_ITS ---
PROCEDURE: CT CERVICAL SPINE WO CON INDICATIONS: fall TECHNIQUE: Noncontrast 3 mm thick sections acquired from the skull base to the T4 level. Sagittal and coronal reformats were then constructed. For radiation dose reduction, the following was used: automated exposure control, adjustment of mA and/or kV according to patient size. COMPARISON: [facility], CT, CT HEAD/BRAIN WO CON, 03/14/2022, 16:58. FINDINGS: Image quality: This examination is somewhat limited by quantum mottle artifact. Bones: No fractures or dislocations. Visualized superior ribs are intact. A likely bone island can be seen within the C3 spinous process. Generalized degenerative changes are seen, including involving the C1-C2 interface and the C5-C6 level. There is fusion change noted of the left C3-C4 facet joint, as on series 5, image 26. Soft tissues: Prevertebral soft tissues are normal in thickness. No paravertebral hematomas. No apical pneumothoraces. A right-sided chest port is partially seen. The known cerebellar masses are partially seen. Atherosclerotic calcification is noted. IMPRESSION: No acute fractures are seen. Cervical spine bony degenerative changes are seen. There is partial visualization of the known cerebellar masses. Dictated by: Christopher Stoddard M.D. on 03/14/2022 at 17:26 Approved by: Christopher Stoddard M.D. on 03/14/2022 at 17:28
--- NOTE | 2022-03-14 16:50 | DI.CT.S_ITS ---
PROCEDURE: CT HEAD/BRAIN WO CON INDICATIONS: fall on thinners TECHNIQUE: Noncontrast 4.5 mm thick angled axial sections acquired from the foramen magnum to the vertex, with coronal and sagittal reformats. For radiation dose reduction, the following was used: automated exposure control, adjustment of mA and/or kV according to patient size. COMPARISON: [facility], MR, MR BRAIN WITH/WITHOUT CONTRAST, 12/06/2021, 3:45. Outside Film, MR, MR BRAIN WITH/WITHOUT CONTRAST, 12/06/2021, 3:45. [facility], CT, CT ANGIO HEAD AND NECK, 12/05/2021, 20:24. [facility], CT, CT CERVICAL SPINE WO CON, 03/14/2022, 16:58. FINDINGS: Image quality: Excellent. CSF spaces: Basal cisterns are patent. No extra-axial fluid collections. Ventricles are normal in size and shape. Brain: Focal low density can be seen involving the anterior superior left frontal lobe. Focal volume loss can be seen involving the right cerebellum. The previously seen left cerebellar mass is again seen, with surrounding edema. The additional smaller masses are not well seen on this noncontrast head CT. No midline shift. Osborne-white matter interface is normal. Skull and face: Calvarium and visualized facial bones are intact, without suspicious lesions. Sinuses: Visualized sinuses and mastoids are clear. IMPRESSION: No acute intracranial hemorrhage is seen. Masses are seen, with associated edema. These masses are better seen by MRI with contrast. Dictated by: Christopher Stoddard M.D. on 03/14/2022 at 17:22 Approved by: Christopher Stoddard M.D. on 03/14/2022 at 17:26
[2022-03-14 17:29] VITALS: PULSE 69; O2SAT 99
[2022-03-14 17:30] VITALS: BP 143/92; PULSE 68; O2SAT 100
[2022-03-14 18:00] VITALS: PULSE 70; O2SAT 99
--- NOTE | 2022-03-14 18:08 | ED.FALL ---
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 Patient also has a history of DVT and he is anticoagulated on Eliquis currently. Patient states that he tripped and fell backwards, striking his right forehead on the ground, states that he was likely wearing his glasses causing the injury on the lateral aspect of his right eye. He denies any headache, nausea vomiting afterwards, or neck pain. He denies any vision changes, denies any fatigue, weakness, or new pain. Patient is currently under radiation treatment for his esophageal and brain cancer and has a Port-A-Cath in his right upper chest which was accessed yesterday in the emergency department for his infusions. Patient has a small laceration on the lateral aspect of his right eyebrow, denies any vision changes, dizziness, lightheadedness, nausea vomiting, or current neck pain. He states he does not need any pain medicine at this time, denies any altered mental status or imbalance. Related Data Home Medications Medication Instructions Recorded Confirmed atorvastatin 80 mg tablet 80 mg PO BEDTIME 05/08/18 03/19/22 carvedilol 6.25 mg tablet 6.25 mg PO BID 05/08/18 03/19/22 amlodipine 10 mg tablet 10 mg PO DAILY 06/22/20 03/19/22 lisinopril 20 mg tablet 40 mg PO BEDTIME 06/22/20 03/19/22 ezetimibe 10 mg tablet 10 mg PO DAILY 11/27/21 03/19/22 Previous Rx's Medication Instructions Recorded acetaminophen 325 mg capsule 650 mg PO QID PRN pain #60 caps 01/26/22 (Tylenol) apixaban 5 mg tablet (Eliquis) 5 mg PO BID #60 tabs 07/01/22 ondansetron 4 mg disintegrating 4 mg PO Q6H PRN Nausea And 02/19/22 tablet Vomiting #60 tabs metformin 500 mg tablet 500 mg PO BID #60 tabs 02/26/22 dexamethasone 4 mg tablet 2 mg PO BID #30 tabs 02/27/22 mouthwashes 30 ml mucous membrane Q6HR PRN 03/15/22 mouthsores #1 ea omeprazole 40 mg capsule,delayed 40 mg PO DAILY #90 caps 03/15/22 release Allergies Allergy/AdvReac Type Severity Reaction Status Date / Time Penicillins [PENICILLINS] Allergy Intermediate Hives Verified 02/26/22 15:28 Review of Systems <VANNESSA Hernandez - Last Filed: 03/14/22 19:01> Review of Systems Narrative: General: denies fever, chills, malaise, sweats, fatigue Head/Neck: denies headache, neck pain, dizziness Eyes: denies visual changes, eye pain Cardio: denies chest pain, palpitations, edema Respiratory: denies dyspnea, cough, orthopnea GI: denies abdominal pain, nausea, vomiting, or diarrhea : denies dysuria, hematuria, urinary retention, frequency or incontinence MSK: denies joint pain, muscle weakness Skin: denies rash, itching, contusion with blunt injury and small laceration to the lateral aspect of his right eye brow Neuro: denies numbness, tingling Patient History <VANNESSA Hernandez - Last Filed: 03/14/22 19:01> Medical History Anemia Ruiz's esophagus with dysplasia Bladder cancer (04/06/10) Cancer of brain (~12/27/21) Chronic low back pain HLD (hyperlipidemia) Hypertension, essential, benign Kidney stones Osteoarthritis Pneumonia Primary osteoarthritis of knees, bilateral Renal mass, left Surgical History History of arthroplasty of right hip (06/29/20) History of bladder surgery (~2009) History of esophagogastroduodenoscopy (EGD) (07/20/16) History of hernia repair (1969) History of hernia repair (1986) History of kidney surgery Hx of heart artery stent (2017) Social History marital status: household members: spouse Smoking Status: Never smoker alcohol intake: current substance use type: does not use Smoking Status: Never smoker alcohol intake frequency: a few times a week Alcohol type: beer Substance Use Type: does not use Exam <VANNESSA Hernandez - Last Filed: 03/14/22 19:01> Narrative Exam Narrative: Independently reviewed vitals signs and nursing notes. General: cooperative, comfortable, in no acute distress, well groomed Head: Small 1 cm laceration over the lateral eyebrow on the right, mild ecchymosis and an abrasion, symmetrical facial expressions Neck: supple Eyes: equal round and reactive, EOMI, conjunctiva normal, visual acuity is grossly normal and equal bilaterally without any vision deficits, no eye pain with eye movement Nose: nares patent, no rhinorrhea Mouth/Throat: moist mucus membranes Cardiovascular: regular rate and rhythm, no peripheral edema, warm extremities Respiratory: normal effort, able to speak in complete sentences, no audible wheezing, stridor, or rales. No retractions or tachypnea. GI: abdomen soft, nontender to palpation, nondistended, no masses, no exquisite tenderness with exam, without guarding or rebound. MSK: moves all extremities, neurovascularly intact, no weakness, normal tone Skin: brisk capillary refill, no rash, no erythema Neuro: normal speech and cognition, A&O x3 Psych: mental status is grossly normal, congruent mood, normal affect, pleasant and cooperative Initial Vital Signs Initial Vital Signs: Vital Signs Temperature 97.4 F L 03/14/22 16:40 Pulse Rate 71 03/14/22 16:40 Respiratory Rate 18 03/14/22 16:40 Blood Pressure 143/87 H 03/14/22 16:40 Pulse Oximetry 99 03/14/22 16:40 Oxygen Delivery Method 03/14/22 16:40 <Grayson Ortiz MD - Last Filed: 03/20/22 04:56> Initial Vital Signs Initial Vital Signs: Vital Signs Temperature 97.4 F L 03/14/22 16:40 Pulse Rate 71 03/14/22 16:40 Respiratory Rate 18 03/14/22 16:40 Blood Pressure 143/87 H 03/14/22 16:40 Pulse Oximetry 99 03/14/22 16:40 Oxygen Delivery Method 03/14/22 16:40 Procedures <VANNESSA Hernandez - Last Filed: 03/14/22 19:01> Laceration Repair Laceration 1: Site: face Side (If applicable): right Size (cm): 1 Description: irregular Depth: simple, single layer Local Anesthetic: lidocaine 1% and with epi Amount of anesthesia used (mL): 1 Pre-repair: wound explored and irrigated extensively Skin layer closed with: nylon Skin layer suture size: 6-0 Number of sutures: 3 Technique: simple, interrupted Scores <VANNESSA Hernandez - Last Filed: 03/14/22 19:01> [place] CT Head Rule Age <16 years old: No Patient on blood thinners: Yes Seizure after injury: No Exclusion: Patient meets exclusion criteria GCS < 15 at 2 hr post trauma: No Suspected open or depressed skull fracture: No Any sign of basilar skull fracture (hemotympanum, raccoon eyes, Spencer's sign, CSF jeannette-/rhinorrhea): No Two or more episodes of vomiting: No Age greater or equal to 65 years: Yes Retrograde amnesia to the event greater or equal to 30 min: No Dangerous Mechanism (pedestrian vs. mv, occupant ejected from mv, fall from >3 ft or > 5 stairs): No Recommendation: Consider CT. The [place] Head CT Rule cannot rule out need for Imaging. <Grayson Ortiz MD - Last Filed: 03/20/22 04:56> [place]ese CT Head Rule Exclusion: Patient meets exclusion criteria Recommendation: Consider CT. The [place] Head CT Rule cannot rule out need for Imaging. Course <VANNESSA Hernandez - Last Filed: 03/14/22 19:01> Orders Ordered: Discontinued Medications Bacitracin (Bacitracin Oint 0.9 Gm Pckt) 1 applic TOP NOW ONE Stop: 03/14/22 18:04 Last Admin: 03/14/22 18:50 Dose: 1 applic Documented By: GIBSON Lidocaine/Epinephrine (Lidocaine 1% W/Epi) 1 ml SUBCUT NOW ONE Stop: 03/14/22 17:17 Last Admin: 03/14/22 18:49 Dose: 1 ml Documented By: GIBSON Vital Signs Vital signs: Vital Signs - 8 hr 03/14/22 16:40 03/14/22 17:29 03/14/22 17:30 Temperature 97.4 F L Pulse Rate 71 69 Respiratory Rate 18 Blood Pressure 143/87 H 143/92 H Pulse Oximetry 99 99 Oxygen Delivery Method Room Air 03/14/22 17:30 03/14/22 18:00 Temperature Pulse Rate 68 70 Respiratory Rate Blood Pressure Pulse Oximetry 100 99 Oxygen Delivery Method <Grayson Ortiz MD - Last Filed: 03/20/22 04:56> Orders Ordered: Discontinued Medications Bacitracin (Bacitracin Oint 0.9 Gm Pckt) 1 applic TOP NOW ONE Stop: 03/14/22 18:04 Last Admin: 03/14/22 18:50 Dose: 1 applic Documented By: GIBSON Lidocaine/Epinephrine (Lidocaine 1% W/Epi) 1 ml SUBCUT NOW ONE Stop: 03/14/22 17:17 Last Admin: 03/14/22 18:49 Dose: 1 ml Documented By: GIBSON Vital Signs Vital signs: Vital Signs - 8 hr 03/14/22 16:40 03/14/22 17:29 03/14/22 17:30 Temperature 97.4 F L Pulse Rate 71 69 Respiratory Rate 18 Blood Pressure 143/87 H 143/92 H Pulse Oximetry 99 99 Oxygen Delivery Method Room Air 03/14/22 17:30 03/14/22 18:00 Temperature Pulse Rate 68 70 Respiratory Rate Blood Pressure Pulse Oximetry 100 99 Oxygen Delivery Method MDM - Fall <Shoshana Godfrey [facility] - Last Filed: 03/14/22 19:01> Imaging Data CTA - brain/neck: Radiologist's Impression: PROCEDURE:? CT HEAD/BRAIN WO CON ? INDICATIONS:? fall on thinners ? TECHNIQUE:? Noncontrast 4.5 mm thick angled axial sections acquired from the foramen magnum to the vertex, with coronal and sagittal reformats.? For radiation dose reduction, the following was used:? automated exposure control, adjustment of mA and/or kV according to patient size.? ? COMPARISON:? Outside Film, MR, MR BRAIN WITH/WITHOUT CONTRAST, 12/06/2021, 3:45.? Outside Film, MR, MR BRAIN WITH/WITHOUT CONTRAST, 12/06/2021, 3:45.? [facility], CT, CT ANGIO HEAD AND NECK, 12/05/2021, 20:24.? [facility], CT, CT CERVICAL SPINE WO CON, 03/14/2022, 16:58. ? FINDINGS:? Image quality:? Excellent.? ? CSF spaces:? Basal cisterns are patent.? No extra-axial fluid collections.? Ventricles are normal in size and shape.? ? Brain:? Focal low density can be seen involving the anterior superior left frontal lobe.? ?Focal volume loss can be seen involving the right cerebellum.? The previously seen left cerebellar mass is again seen, with surrounding edema.? The additional smaller masses are not well seen on this noncontrast head CT. ? No midline shift.? Osborne-white matter interface is normal.? ? Skull and face:? Calvarium and visualized facial bones are intact, without suspicious lesions.? ? Sinuses:? Visualized sinuses and mastoids are clear.? IMPRESSION:? No acute intracranial hemorrhage is seen.? ? Masses are seen, with associated edema.? These masses are better seen by MRI with contrast.? ? Dictated by: Christopher Stoddard M.D. on 03/14/2022 at 17:22 ? ? Approved by: Christopher Stoddard M.D. on 03/14/2022 at 17:26 ? CT - cervical spine: Radiologist's Impression: PROCEDURE:? CT CERVICAL SPINE WO CON ? INDICATIONS:? fall ? TECHNIQUE:? Noncontrast 3 mm thick sections acquired from the skull base to the T4 level.? Sagittal and coronal reformats were then constructed.? For radiation dose reduction, the following was used:? automated exposure control, adjustment of mA and/or kV according to patient size.? ? COMPARISON:? [facility], CT, CT HEAD/BRAIN WO CON, 03/14/2022, 16:58. ? FINDINGS:? Image quality:? This examination is somewhat limited by quantum mottle artifact.? ? Bones:? No fractures or dislocations.? Visualized superior ribs are intact.? A likely bone island can be seen within the C3 spinous process. ? Generalized degenerative changes are seen, including involving the C1-C2 interface and the C5-C6 level.? There is fusion change noted of the left C3-C4 facet joint, as on series 5, image 26. ? Soft tissues:? Prevertebral soft tissues are normal in thickness.? No paravertebral hematomas.? No apical pneumothoraces.? A right-sided chest port is partially seen. ? The known cerebellar masses are partially seen. ? Atherosclerotic calcification is noted.? ? ? IMPRESSION:? No acute fractures are seen.? ? Cervical spine bony degenerative changes are seen. ? There is partial visualization of the known cerebellar masses. ? ? Dictated by: Christopher Stoddard M.D. on 03/14/2022 at 17:26 ? ? Approved by: Christopher Stoddard M.D. on 03/14/2022 at 17:28 ? MDM Narrative Medical decision making narrative: This is a pleasant 76-year-old male who presents to the emergency department after a mechanical fall that happened just prior to his scheduled wound care appointment today and he tripped fell backwards and struck the right side of his lateral right eyebrow on the ground. He states that he thinks he was wearing his glasses at the time because they are bent and this is likely where his abrasion and wound above his right eye came from. On exam, he has small amount of ecchymosis with a impaction injury causing an irregular laceration approximately 1 cm. No foreign debris, this was irrigated out with normal saline, he has an abrasion surrounding it without any vision changes, significant bleeding, eye pain with eye movement or any eye movement deficits. Is chronically anticoagulated on Eliquis for previous DVT. Patient has primary adenoma carcinoma of his esophagus, multiple brain masses, hypertension, who had a head and C-spine CT without contrast which do not show any acute changes. His head CT shows no acute intracranial hemorrhage, masses are seen with associated edema, his cervical spine only shows bony degenerative changes and there is partial visualization of his known cerebellar masses but there are no acute fractures. Patient's laceration was repaired with three sutures, his eye movements are intact and equal, facial expressions are symmetrical, he does not have any eye pain with eye movement. Low suspicion for patient nerve injury. Patient tolerated suture repair well, no further bleeding, no large hematoma, patient was given strict return precautions for any nausea vomiting, weakness, vision changes, progressive headache which is not improve. Patient states that he will return for any new changes, have his sutures removed in five days and will return to the walk-in clinic have a trained professional take them out. Copies of his CTs were provided for the patient so that he could review them, patient wishes to discharge home and states that he feels fine without any pain medication. Patient is appropriate and amenable to discharge home. Vital signs are stable on repeat examination is unremarkable. Patient has been informed of results. Patient has been given strict return to ER precautions for any new or worsening symptoms. Patient understands to follow up closely with outpatient providers as instructed. Patient understands plan and agrees to discharge home. All questions and concerns answered at this time. Discharge Plan Departure Patient Disposition: Home Clinical Impression: Anticoagulant long-term use Fall Qualifiers: Encounter type: initial encounter Qualified Code(s): W19.XXXA - Unspecified fall, initial encounter Laceration of face Qualifiers: Encounter type: initial encounter Qualified Code(s): S01.81XA - Laceration without foreign body of other part of head, initial encounter Instructions: Laceration Repair Activity Restrictions/Additional Instructions: *You have been diagnosed with a fall with laceration to your right eyebrow, you received three sutures today which can be removed in five days. Please use cool compresses today to help prevent swelling and worsening of your future black eye. Please take Tylenol as needed for pain. Please follow-up with Dr. Bourgeois or go to the walk-in clinic in five days for suture removal or have another trained friend of the family like a nurse take these out for you. Please apply bacitracin or equivalent antibiotic ointment while you still have sutures in to prevent infection. Please return to the emergency department if you develop any nausea and vomiting, severe headache, balance changes, weakness or anything concerning. Please apply sunscreen over this after it heals to prevent it from scarring in the sun or where your favorite hat. It was a pleasure to meet you both today, I wish you the best, please return for any other concerns in the future. Your CT scan today does not show any acute changes in your brain, head, or cervical spine. This is good news. *What to do: *Please continue to take your regular medications as directed. [ ] New medication prescriptions sent to your pharmacy: [ ] [ ] New medication written as a paper prescription [ x] No new medications given *Please follow up with your primary care provider in 2-3 days, call for an appointment. Let them know you were seen in the Emergency Department and that we asked that you be seen for follow-up. We will electronically transmit a record of today's note if your PCP is in our system *If you do not have a primary care provider please contact [phone] to establish care with one of the [facility] primary care providers. *Return to Emergency Department if you should have any new, worsening or concerning symptoms, such as [fever greater than 101F, chills, worsening pain, persistent vomiting or other bothersome symptoms] Prescriptions: No Action ezetimibe 10 mg tablet 10 mg PO DAILY metformin 500 mg tablet 500 mg PO BID Qty: 60 3RF dexamethasone 4 mg tablet 2 mg PO BID Qty: 30 0RF mouthwashes Kit 30 ml MUCOUS MEMBRANE Q6HR PRN (Reason: mouthsores) Qty: 1 3RF Rx Instructions: Swish, gargle, and spit one to two teaspoonfuls for 1 minute. Repeat every six hours as needed. May be swallowed if esophageal involvement. omeprazole 40 mg capsule,delayed release(DR/EC) 40 mg PO DAILY Qty: 90 3RF atorvastatin 80 mg tablet 80 mg PO BEDTIME carvedilol 6.25 mg tablet 6.25 mg PO BID acetaminophen [Tylenol] 325 mg capsule 650 mg PO QID PRN (Reason: pain) Qty: 60 0RF Eliquis 5 mg Tablet 5 mg PO BID Qty: 60 3RF lisinopril 20 mg tablet 40 mg PO BEDTIME amlodipine 10 mg Tablet 10 mg PO DAILY ondansetron 4 mg Tablet,Disintegrating 4 mg PO Q6H PRN (Reason: Nausea And Vomiting) Qty: 60 0RF Referrals: Griffin Bourgeois MD [Primary Care Provider] - Visit Report Forms: Patient Portal/API <Grayson Ortiz MD - Last Filed: 03/20/22 04:56> [facility] ED Attending Juan Manuelature Attestation: I was immediately available in the department for consultation. ?This documentation has been reviewed and I agree with assessment and plan. Supervised by Grayson Ortiz MD
[2022-03-14] MEDS: LIDOCAINE 1% W/EPI 1 ML SUBCUT (18:49)
[2022-03-14] MEDS: BACITRACIN OINT 0.9 GM PCKT 1 APPLIC TOP (18:50)
== END 2022-03-14 18:54 | disposition home or self-care (01) ==
PROVIDERS: Emergency Provider Nurse Practitioner Critical Care Medicine; Family Provider Family Medicine; PCP Family Medicine
DX: C15.9 Malignant neoplasm of esophagus, unspecified (principal); S01.81XA Laceration without foreign body of other part of head, initial encounter; S51.801A Unspecified open wound of right forearm, initial encounter; I87.2 Venous insufficiency (chronic) (peripheral); L97.512 Non-pressure chronic ulcer of other part of right foot with fat layer exposed; L97.812 Non-pressure chronic ulcer of other part of right lower leg with fat layer exposed; E09.65 Drug or chemical induced diabetes mellitus with hyperglycemia; B35.3 Tinea pedis; W19.XXXA Unspecified fall, initial encounter; Z92.21 Personal history of antineoplastic chemotherapy; Z79.52 Long term (current) use of systemic steroids; Z79.01 Long term (current) use of anticoagulants
CPT/HCPCS: 11042; 11045; 12011; 70450; 72125; 87070; 87205; 97597; 99283

== ENCOUNTER → 2022-03-19 15:37 | Outpatient (CLI) | payer OTHER, SELFPAY ==
[2022-02-06 06:17] VITALS: BMI 32.2
== END ==
PROVIDERS: Family Provider Family Medicine; PCP Family Medicine; Referring Provider Family Medicine; Visit Provider Family Medicine
DX: I87.2 Venous insufficiency (chronic) (peripheral) (principal); L97.512 Non-pressure chronic ulcer of other part of right foot with fat layer exposed; L97.812 Non-pressure chronic ulcer of other part of right lower leg with fat layer exposed; L97.822 Non-pressure chronic ulcer of other part of left lower leg with fat layer exposed; S51.801A Unspecified open wound of right forearm, initial encounter; L03.115 Cellulitis of right lower limb; L03.126 Acute lymphangitis of left lower limb; Z92.21 Personal history of antineoplastic chemotherapy; Z79.52 Long term (current) use of systemic steroids; Z79.01 Long term (current) use of anticoagulants; B35.3 Tinea pedis; C15.9 Malignant neoplasm of esophagus, unspecified; M79.671 Pain in right foot; E09.65 Drug or chemical induced diabetes mellitus with hyperglycemia
CPT/HCPCS: 87070; 87075; 87205; 97597; 99213

== ENCOUNTER → 2022-03-28 08:54 | Outpatient (CLI) | payer OTHER, SELFPAY ==
[2022-02-06 06:17] VITALS: BMI 32.2
== END ==
PROVIDERS: Family Provider Family Medicine; PCP Family Medicine; Referring Provider Family Medicine; Visit Provider Family Medicine
DX: I87.2 Venous insufficiency (chronic) (peripheral) (principal); L97.512 Non-pressure chronic ulcer of other part of right foot with fat layer exposed; L97.812 Non-pressure chronic ulcer of other part of right lower leg with fat layer exposed; L97.822 Non-pressure chronic ulcer of other part of left lower leg with fat layer exposed; S51.801A Unspecified open wound of right forearm, initial encounter; Z92.21 Personal history of antineoplastic chemotherapy; Z79.52 Long term (current) use of systemic steroids; Z79.01 Long term (current) use of anticoagulants; C15.9 Malignant neoplasm of esophagus, unspecified; E09.65 Drug or chemical induced diabetes mellitus with hyperglycemia
CPT/HCPCS: 11042; 11045; 99213

== ENCOUNTER → 2022-04-04 12:00 | Outpatient (CLI) | payer OTHER, SELFPAY ==
[2022-02-06 06:17] VITALS: BMI 32.2
== END ==
PROVIDERS: Family Provider Family Medicine; PCP Family Medicine; Referring Provider Family Medicine; Visit Provider Family Medicine
DX: C15.5 Malignant neoplasm of lower third of esophagus (principal); C79.31 Secondary malignant neoplasm of brain; C78.7 Secondary malignant neoplasm of liver and intrahepatic bile duct; I87.2 Venous insufficiency (chronic) (peripheral); L97.512 Non-pressure chronic ulcer of other part of right foot with fat layer exposed; L97.812 Non-pressure chronic ulcer of other part of right lower leg with fat layer exposed; L97.822 Non-pressure chronic ulcer of other part of left lower leg with fat layer exposed; S81.001A Unspecified open wound, right knee, initial encounter; S81.002A Unspecified open wound, left knee, initial encounter; C15.9 Malignant neoplasm of esophagus, unspecified; Z79.52 Long term (current) use of systemic steroids; E09.65 Drug or chemical induced diabetes mellitus with hyperglycemia; Z79.01 Long term (current) use of anticoagulants
CPT/HCPCS: 11042; 11045; 96360; 97597; 97598; 99214

== ENCOUNTER → 2022-04-11 09:43 | Outpatient (CLI) | payer OTHER, SELFPAY ==
[2022-02-06 06:17] VITALS: BMI 32.2
== END ==
PROVIDERS: Family Provider Family Medicine; PCP Family Medicine; Referring Provider Family Medicine; Visit Provider Family Medicine
DX: I87.2 Venous insufficiency (chronic) (peripheral) (principal); L97.512 Non-pressure chronic ulcer of other part of right foot with fat layer exposed; L97.811 Non-pressure chronic ulcer of other part of right lower leg limited to breakdown of skin; L97.822 Non-pressure chronic ulcer of other part of left lower leg with fat layer exposed; R60.0 Localized edema; S81.002A Unspecified open wound, left knee, initial encounter; S81.001A Unspecified open wound, right knee, initial encounter; M79.604 Pain in right leg; M79.605 Pain in left leg
CPT/HCPCS: 99213

== ENCOUNTER 2022-04-14 02:50 | Inpatient (IN) | payer OTHER, SELFPAY ==
[2022-02-06 06:17] VITALS: BMI 32.2
[2022-04-14] VITALS (49 sets, daily range): BP systolic 73–143; BP diastolic 50–98; PULSE 65–94; RESP 18; TEMP 36.3–36.8; O2SAT 93–100; BMI 20.7
--- NOTE | 2022-04-14 02:55 | PC.NURSE ---
see triage note
--- NOTE | 2022-04-14 03:14 | DI.CT.S_ITS ---
PROCEDURE: CT LUMBAR SPINE W CON INDICATIONS: severe back pain, on blood thinners TECHNIQUE: After the administration of intravenous Isovue contrast, 3 mm thick sections acquired through the levels of interest. Sagittal and coronal reformats were then constructed. For radiation dose reduction, the following was used: automated exposure control. COMPARISON: [place], [place], [place] PET CT FUSION SKULL 2 THIGH, 01/31/2022, 8:01. FINDINGS: Image quality: Excellent. Bones: Silver left curvature of the lumbar spine centered at L3. Vertebral body heights are preserved. Multilevel disc height loss most prominent at L2-L3 and L3-L4 with degenerative changes of the endplates and anterior osteophyte formation. The rotary component of the spine contributes to a moderate L3-L4 spinal canal stenosis. There is multilevel facet arthrosis most prominent at L2 through S1. This facet arthrosis contributes to moderate right L2-L3 foraminal stenosis. Moderate to severe right and mild left L3-L4 foraminal stenosis. Severe left foraminal L4-L5 and moderate right foraminal narrowing and mild L5-S1 foraminal narrowing. 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 Bilateral renal cysts. Right perinephric fat stranding. Mild pelviectasis of the right collecting system without stone or obstruction. Atherosclerotic disease aorta major branches. Scattered diverticular disease without evidence of acute diverticulitis. IMPRESSION: 1. No fracture of the lumbar spine. 2. No hemorrhage or abscess identified. 3. Multilevel degenerative changes with spinal canal narrowing at L3-L4. 4. Multilevel facet arthrosis most prominent at L4-L5. 5. Cystic changes of the right kidney with perinephric fat stranding. This may be chronic changes versus acute inflammatory process. Correlate with UA. 6. Diverticulosis without evidence acute diverticulitis. No discrepancy from prior interpretation. Dictated by: Grayson Rousseau M.D. on 04/14/2022 at 6:59 Approved by: Grayson Rousseau M.D. on 04/14/2022 at 7:10
--- NOTE | 2022-04-14 03:15 | ED.BACK ---
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 The patient states that he had been in his relative state of health and developed this severe pain without obvious provocation or investigation about 1-2 hours prior to his arrival. He had been seen and evaluated about 1 week ago for a traumatic injury to his face and knees but denies any more recent fall. He states the pain sits in the middle of his back and does not radiate. It is worse when he moves and improves with rest. He denies any numbness, tingling or weakness. He denies any loss of control of bowel or bladder. He was given fentanyl by EMS and has improvement in symptoms Related Data Home Medications Medication Instructions Recorded Confirmed carvedilol 6.25 mg tablet 6.25 mg PO BID 05/08/18 04/14/22 amlodipine 10 mg tablet 10 mg PO DAILY 06/22/20 04/14/22 atorvastatin 80 mg tablet 80 mg PO BEDTIME 04/14/22 04/14/22 dexamethasone 4 mg tablet 2 mg PO BID 04/14/22 04/14/22 ezetimibe 10 mg tablet 10 mg PO DAILY 04/14/22 04/14/22 lisinopril 40 mg tablet 40 mg PO QPM 04/14/22 04/14/22 memantine 10 mg tablet 10 mg PO BID 04/14/22 04/14/22 omeprazole 40 mg capsule,delayed 40 mg PO QAM 04/14/22 04/14/22 release Previous Rx's Medication Instructions Recorded acetaminophen 325 mg capsule 650 mg PO QID PRN pain #60 caps 01/26/22 (Tylenol) apixaban 5 mg tablet (Eliquis) 5 mg PO BID #60 tabs 02/09/22 ondansetron 4 mg disintegrating 4 mg PO Q6H PRN Nausea And 02/19/22 tablet Vomiting #60 tabs metformin 500 mg tablet 500 mg PO BID #60 tabs 07/18/22 tamsulosin 0.4 mg capsule (Flomax) 0.4 mg PO DAILY #30 caps 04/04/22 Allergies Allergy/AdvReac Type Severity Reaction Status Date / Time Penicillins [PENICILLINS] Allergy Intermediate Hives Verified 04/14/22 16:15 Review of Systems <Toni Yang DO - Last Filed: 04/15/22 01:19> Review of Systems Narrative: GENERAL: Denies chills, fatigue, malaise, fever, sweats. HEENT: Denies sinus pain, ear pain, sore throat, difficulty swallowing, dizziness. RESPIRATORY: Denies dyspnea, cough, wheezing, hemoptysis, sputum. CARDIOVASCULAR: Denies chest pain, palpitations, orthopnea, edema, GASTROINTESTINAL: Denies nausea, vomiting, abdominal pain, diarrhea, constipation, melena. : Denies dysuria, frequency, incontinence, hematuria, urinary retention. MUSCULOSKELETAL: See HPI SKIN: Denies rash, skin lesions, or other NEUROLOGIC: Denies weakness, headache, numbness, change in speech, confusion, seizures, incoordination. PSYCHIATRIC: No concerning psychosocial issues. 12 point review of systems is negative except for those stated above Patient History <Toni Yang DO - Last Filed: 04/15/22 01:19> Medical History Anemia Ruiz's esophagus with dysplasia Bladder cancer (04/06/10) Cancer of brain (~12/27/21) Chronic low back pain Deep vein thrombosis (DVT) of right lower extremity HLD (hyperlipidemia) Hypertension, essential, benign Inferior myocardial infarction Kidney stones Osteoarthritis Pneumonia Primary osteoarthritis of knees, bilateral Renal mass, left Surgical History History of arthroplasty of right hip (06/29/20) History of bladder surgery (~2009) History of esophagogastroduodenoscopy (EGD) (07/20/16) History of hernia repair (1969) History of hernia repair (1986) History of kidney surgery Hx of heart artery stent (2017) Social History marital status: household members: spouse Smoking Status: Former smoker alcohol intake: former substance use type: does not use Smoking Status: Never smoker alcohol intake frequency: a few times a week Alcohol type: beer Substance Use Type: does not use Exam <Toni Yang, DO - Last Filed: 04/15/22 01:19> Narrative Exam Narrative: GENERAL: [76] year old patient appears older than stated age. Thin and malnourished, evidence of chronic illness HEAD: Atraumatic. Normocephalic. EYES: Pupils equal round and reactive. Extraocular motions intact. No scleral icterus. No injection or drainage. ENT: Nose without bleeding, purulent drainage. Throat without erythema, tonsillar hypertrophy or exudate. Airway patent. NECK: Trachea midline. Non tender CARDIOVASCULAR: Regular rate and rhythm without murmurs, gallops, or rubs. RESPIRATORY: Clear to auscultation. Breath sounds equal bilaterally. No wheezes, rales, or rhonchi. GASTROINTESTINAL: Abdomen soft, non-tender, nondistended. EXTREMITIES: No edema or joint tenderness. BACK: Low midline back pain mildly reproducible, no step-offs, swelling, induration or redness. No saddle anesthesia. No lower extremity sensory deficit or measurable weakness. NEURO: AOx3. SKIN: No rash or erythema of visible areas Initial Vital Signs Initial Vital Signs: Vital Signs Temperature 98.2 F 04/14/22 02:55 Pulse Rate 94 H 04/14/22 02:55 Respiratory Rate 18 04/14/22 02:55 Blood Pressure 83/50 L 04/14/22 02:55 Pulse Oximetry 100 04/14/22 02:55 <Cheri Her, DO - Last Filed: 04/14/22 17:02> Narrative Exam Narrative: GENERAL: [76] year old patient appears older than stated age. Thin and malnourished, evidence of chronic illness HEAD: Atraumatic. Normocephalic. EYES: Pupils equal round and reactive. Extraocular motions intact. No scleral icterus. No injection or drainage. ENT: Nose without bleeding, purulent drainage. Throat without erythema, tonsillar hypertrophy or exudate. Airway patent. NECK: Trachea midline. Non tender CARDIOVASCULAR: Regular rate and rhythm without murmurs, gallops, or rubs. RESPIRATORY: Clear to auscultation. Breath sounds equal bilaterally. No wheezes, rales, or rhonchi. GASTROINTESTINAL: Abdomen soft, non-tender, nondistended. EXTREMITIES: No edema or joint tenderness. BACK: Low midline back pain mildly reproducible, no step-offs, swelling, induration or redness. No saddle anesthesia. No lower extremity sensory deficit or measurable weakness. NEURO: AOx3. SKIN: No rash or erythema of visible areas Mank 04/14/22: GENERAL: Alert and oriented x three, elderly male in mild distress. HEENT: Head normocephalic, atraumatic, EOMI, pupils reactive, face symmetric, moist mucous membranes NECK: Supple, full range of motion CARDIOVASCULAR: Regular rate and rhythm without murmurs, rubs or gallops. RESPIRATORY: Breath sounds equal bilaterally, no wheezes rales or rhonchi. ABDOMEN: Soft, nontender. Normoactive bowel sounds all 4 quadrants. No guarding or rebound, rigidity, no mass : No CVA tenderness BACK: No cervical, thoracic or lumbar vertebral point tenderness. Patient has fairly decent range of motion. Patient is able to sit forward in the bed. Muscle strength is 5/5 in lower extremities, DTRs are 2/4 and lower extremities. Dorsalis pedis and tibialis pulses are 2+ and lower extremities. Sensation is intact in the lower extremities. EXTREMITIES: Normal range of motion, no clubbing or edema. Neurovascularly intact NEUROLOGICAL: Cranial nerves II through XII grossly intact. Moving all extremities SKIN: Warm, dry, no petechiae, no rashes or lesions, patient has large ulceration over the dorsum of his right foot, there is pink granulation tissue, appears to be full thickness into the subcutaneous tissue but no tendon involvement. Patient's is changing the bandage. No discharge other than small amount of sanguinous drainage, no foul odor or necrosis. Initial Vital Signs Initial Vital Signs: Vital Signs Temperature 98.2 F 04/14/22 02:55 Pulse Rate 94 H 04/14/22 02:55 Respiratory Rate 18 04/14/22 02:55 Blood Pressure 83/50 L 04/14/22 02:55 Pulse Oximetry 100 04/14/22 02:55 Course <Toni Yang DO - Last Filed: 04/15/22 01:19> Orders Ordered: Acetaminophen (Acetaminophen 325 Mg Tablet) 650 mg PO Q6HR PRN PRN Reason: Fever/Mild Pain (1-3) Apixaban (Apixaban 5 Mg Tablet) 5 mg PO BID [facility] Last Admin: 04/14/22 20:59 Dose: 5 mg Documented By: ALANNA Atorvastatin Calcium (Atorvastatin 20 Mg Tablet) 80 mg PO BEDTIME [facility] Last Admin: 04/14/22 20:59 Dose: 80 mg Documented By: CN Carvedilol (Carvedilol 3.125 Mg Tablet) 3.125 mg PO BID [facility] Last Admin: 04/14/22 20:59 Dose: 3.125 mg Documented By: ALANNA Dextrose (Dextrose 50 % In Water 25 Gm/50 Ml Syringe) 25 gm IV PRN PRN PRN Reason: Hypoglycemia Ezetimibe (Ezetimibe 10 Mg Tablet) 10 mg PO DAILY [facility] Hydrocortisone (Hydrocortisone 100 Mg/2 Ml Vial) 100 mg IV Q8HR [facility] Last Admin: 04/14/22 20:58 Dose: 100 mg Documented By: Admin: 04/14/22 14:21 Dose: Not Given Documented By: Admin: 04/14/22 13:24 Dose: Not Given Documented By: RB Sodium Chloride (Normal Saline 0.9%) 1,000 mls @ 100 mls/hr IV CONT [facility] Last Admin: 04/15/22 01:10 Dose: 150 mls/hr Documented By: Infusion: 04/14/22 22:58 Dose: 150 mls/hr Documented By: Admin: 04/14/22 16:17 Dose: 150 mls/hr Documented By: Infusion: 04/14/22 16:17 Dose: 150 mls/hr Documented By: Admin: 04/14/22 10:47 Dose: 150 mls/hr Documented By: RB Ceftriaxone Sodium 2,000 mg/ (Sodium Chloride) 100 mls @ 200 mls/hr IV Q24H [facility] Last Admin: 04/15/22 01:03 Dose: 200 mls/hr Documented By: ALANNA Insulin Human Lispro (Insulin Lispro 100 Unit/Ml 3ml Vial) 0 unit SUBCUT ACHS [facility]; Protocol Last Admin: 04/15/22 00:49 Dose: Not Given Documented By: Admin: 04/14/22 16:39 Dose: Not Given Documented By: Admin: 04/14/22 13:23 Dose: Not Given Documented By: RB Memantine (Memantine Hcl 5 Mg Tablet) 10 mg PO BID [facility] Last Admin: 04/14/22 20:59 Dose: 10 mg Documented By: ALANNA Ondansetron HCl (Ondansetron 4 Mg/2 Ml Inj) 4 mg IV Q8HR PRN PRN Reason: Nausea And Vomiting Oxycodone HCl (Oxycodone Ir 5 Mg Tablet) 5 mg PO Q4HR PRN PRN Reason: Pain, Moderate (4-6) Pantoprazole Sodium (Pantoprazole Dr 40 Mg Tablet) 40 mg PO 0600 [facility] Tamsulosin HCl (Tamsulosin 0.4 Mg Capsule) 0.4 mg PO DAILY [facility] Discontinued Medications Dexamethasone (Dexamethasone 4 Mg Tablet) 4 mg PO NOW ONE Stop: 04/14/22 10:34 Last Admin: 04/14/22 11:51 Dose: Not Given Documented By: RB Dexamethasone (Dexamethasone 4 Mg Tablet) 2 mg PO NOW ONE Stop: 04/14/22 11:50 Last Admin: 04/14/22 12:25 Dose: 2 mg Documented By: RB Sodium Chloride (Normal Saline 0.9%) 1,000 mls @ 1,000 mls/hr IV BOLUS ONE Stop: 04/14/22 06:21 Last Infusion: 04/14/22 07:58 Dose: 0 mls/hr Documented By: Admin: 04/14/22 05:48 Dose: 1,000 mls/hr Documented By: EMERY Piperacillin Sod/Tazobactam (Sod 4.5 gm/ Sodium Chloride) 100 mls @ 200 mls/hr IV NOW ONE Stop: 04/14/22 07:11 Last Infusion: 04/14/22 09:32 Dose: 0 mls/hr Documented By: Admin: 04/14/22 08:35 Dose: 200 mls/hr Documented By: RB Vancomycin HCl (Vancomycin) 1,000 mg in 200 mls @ 200 mls/hr IV NOW ONE Stop: 04/14/22 08:09 Last Infusion: 04/14/22 09:36 Dose: 0 mls/hr Documented By: Admin: 04/14/22 08:35 Dose: 200 mls/hr Documented By: RB Sodium Chloride (Normal Saline 0.9%) 1,000 mls @ 1,000 mls/hr IV BOLUS ONE Stop: 04/14/22 09:47 Last Infusion: 04/14/22 10:44 Dose: 0 mls/hr Documented By: Admin: 04/14/22 08:55 Dose: 1,000 mls/hr Documented By: RB Ceftriaxone Sodium 2,000 mg/ (Sodium Chloride) 100 mls @ 200 mls/hr IV Q24H [facility] Lorazepam (Lorazepam 2 Mg/Ml Inj) 0.5 mg IV NOW ONE Stop: 04/14/22 07:12 Last Admin: 04/14/22 07:27 Dose: 0.5 mg Documented By: RB Vital Signs Vital signs: Vital Signs - 8 hr 04/14/22 09:15 04/14/22 09:15 04/14/22 09:30 Pulse Rate 69 Blood Pressure 80/57 L 91/63 Pulse Oximetry 99 04/14/22 09:30 04/14/22 09:36 04/14/22 09:36 Pulse Rate 65 71 Blood Pressure 95/64 Pulse Oximetry 98 99 04/14/22 09:45 04/14/22 09:45 04/14/22 10:00 Pulse Rate 67 Blood Pressure 106/66 111/72 Pulse Oximetry 98 04/14/22 10:00 Pulse Rate 76 Blood Pressure Pulse Oximetry 98 <Cheri Her, - Last Filed: 04/14/22 17:02> Orders Ordered: Acetaminophen (Acetaminophen 325 Mg Tablet) 650 mg PO Q6HR PRN PRN Reason: Fever/Mild Pain (1-3) Apixaban (Apixaban 5 Mg Tablet) 5 mg PO BID [facility] Last Admin: 04/14/22 20:59 Dose: 5 mg Documented By: ALANNA Atorvastatin Calcium (Atorvastatin 20 Mg Tablet) 80 mg PO BEDTIME [facility] Last Admin: 04/14/22 20:59 Dose: 80 mg Documented By: ALANNA Carvedilol (Carvedilol 3.125 Mg Tablet) 3.125 mg PO BID [facility] Last Admin: 04/14/22 20:59 Dose: 3.125 mg Documented By: ALANNA Dextrose (Dextrose 50 % In Water 25 Gm/50 Ml Syringe) 25 gm IV PRN PRN PRN Reason: Hypoglycemia Ezetimibe (Ezetimibe 10 Mg Tablet) 10 mg PO DAILY [facility] Hydrocortisone (Hydrocortisone 100 Mg/2 Ml Vial) 100 mg IV Q8HR [facility] Last Admin: 04/14/22 20:58 Dose: 100 mg Documented By: Admin: 04/14/22 14:21 Dose: Not Given Documented By: Admin: 04/14/22 13:24 Dose: Not Given Documented By: RB Sodium Chloride (Normal Saline 0.9%) 1,000 mls @ 100 mls/hr IV CONT [facility] Last Admin: 04/15/22 01:10 Dose: 150 mls/hr Documented By: Infusion: 04/14/22 22:58 Dose: 150 mls/hr Documented By: Admin: 04/14/22 16:17 Dose: 150 mls/hr Documented By: Infusion: 04/14/22 16:17 Dose: 150 mls/hr Documented By: Admin: 04/14/22 10:47 Dose: 150 mls/hr Documented By: RB Ceftriaxone Sodium 2,000 mg/ (Sodium Chloride) 100 mls @ 200 mls/hr IV Q24H [facility] Last Admin: 04/15/22 01:03 Dose: 200 mls/hr Documented By: ALANNA Insulin Human Lispro (Insulin Lispro 100 Unit/Ml 3ml Vial) 0 unit SUBCUT ACHS [facility]; Protocol Last Admin: 04/15/22 00:49 Dose: Not Given Documented By: Admin: 04/14/22 16:39 Dose: Not Given Documented By: Admin: 04/14/22 13:23 Dose: Not Given Documented By: RB Memantine (Memantine Hcl 5 Mg Tablet) 10 mg PO BID [facility] Last Admin: 04/14/22 20:59 Dose: 10 mg Documented By: ALANNA Ondansetron HCl (Ondansetron 4 Mg/2 Ml Inj) 4 mg IV Q8HR PRN PRN Reason: Nausea And Vomiting Oxycodone HCl (Oxycodone Ir 5 Mg Tablet) 5 mg PO Q4HR PRN PRN Reason: Pain, Moderate (4-6) Pantoprazole Sodium (Pantoprazole Dr 40 Mg Tablet) 40 mg PO 0600 [facility] Tamsulosin HCl (Tamsulosin 0.4 Mg Capsule) 0.4 mg PO DAILY [facility] Discontinued Medications Dexamethasone (Dexamethasone 4 Mg Tablet) 4 mg PO NOW ONE Stop: 04/14/22 10:34 Last Admin: 04/14/22 11:51 Dose: Not Given Documented By: RB Dexamethasone (Dexamethasone 4 Mg Tablet) 2 mg PO NOW ONE Stop: 04/14/22 11:50 Last Admin: 04/14/22 12:25 Dose: 2 mg Documented By: ARAMIS Sodium Chloride (Normal Saline 0.9%) 1,000 mls @ 1,000 mls/hr IV BOLUS ONE Stop: 04/14/22 06:21 Last Infusion: 04/14/22 07:58 Dose: 0 mls/hr Documented By: Admin: 04/14/22 05:48 Dose: 1,000 mls/hr Documented By: EMERY Piperacillin Sod/Tazobactam (Sod 4.5 gm/ Sodium Chloride) 100 mls @ 200 mls/hr IV NOW ONE Stop: 04/14/22 07:11 Last Infusion: 04/14/22 09:32 Dose: 0 mls/hr Documented By: Admin: 04/14/22 08:35 Dose: 200 mls/hr Documented By: RB Vancomycin HCl (Vancomycin) 1,000 mg in 200 mls @ 200 mls/hr IV NOW ONE Stop: 04/14/22 08:09 Last Infusion: 04/14/22 09:36 Dose: 0 mls/hr Documented By: Admin: 04/14/22 08:35 Dose: 200 mls/hr Documented By: RB Sodium Chloride (Normal Saline 0.9%) 1,000 mls @ 1,000 mls/hr IV BOLUS ONE Stop: 04/14/22 09:47 Last Infusion: 04/14/22 10:44 Dose: 0 mls/hr Documented By: Admin: 04/14/22 08:55 Dose: 1,000 mls/hr Documented By: RB Ceftriaxone Sodium 2,000 mg/ (Sodium Chloride) 100 mls @ 200 mls/hr IV Q24H [facility] Lorazepam (Lorazepam 2 Mg/Ml Inj) 0.5 mg IV NOW ONE Stop: 04/14/22 07:12 Last Admin: 04/14/22 07:27 Dose: 0.5 mg Documented By: RB Consultations Consultation #1: Oncology, would recommend Levaquin x7 days and monitor blood cultures. They agree with plan for observation. Time: : Consultation #2: Dr. Díaz, plan for observation. Cover with antibiotics and monitor. Time: : Vital Signs Vital signs: Vital Signs - 8 hr 04/14/22 09:15 04/14/22 09:15 04/14/22 09:30 Pulse Rate 69 Blood Pressure 80/57 L 91/63 Pulse Oximetry 99 04/14/22 09:30 04/14/22 09:36 04/14/22 09:36 Pulse Rate 65 71 Blood Pressure 95/64 Pulse Oximetry 98 99 04/14/22 09:45 04/14/22 09:45 04/14/22 10:00 Pulse Rate 67 Blood Pressure 106/66 111/72 Pulse Oximetry 98 04/14/22 10:00 Pulse Rate 76 Blood Pressure Pulse Oximetry 98 MDM - Back Pain/Injury <Toni Yang, DO - Last Filed: 04/15/22 01:19> Lab Data Result diagrams: 04/14/22 03:05 04/14/22 03:05 Labs: Lab Results 04/14/22 04/14/22 04/14/22 Range/Units 03:05 03:05 03:05 WBC 0.5 L* (4.5-11.0) X10^3/uL RBC 3.49 L (4.5-5.9) X10^6/uL Hgb 11.3 L (13.5-17.5) g/dL Hct 32.7 L (41-53) % MCV 93.6 (80-100) fL MCH 32.5 (26-34) PG MCHC 34.7 (30-36) % RDW 20.0 H (11.6-14.8) % Plt Count 89 L (150-400) X10^3/uL Neut % (Auto) (50-75) % Lymph % (Auto) Not Reportable Miller % (Auto) Not Reportable Eos % (Auto) Not Reportable Baso % (Auto) Not Reportable Lymph # (Auto) Not Reportable Miller # (Auto) Not Reportable Baso # (Auto) Not Reportable Platelet Estimate Decreased on smear RBC Morphology See below Poikilocytosis 2+ H Anisocytosis 1+ H ESR 35 H (0-15) MM/HR PT (10.1-12.7) SECONDS INR (0.9-1.3) APTT (26-36) SECONDS Sodium 133 L (137-145) mmol/L Potassium 4.1 (3.4-5.1) mmol/L Chloride 108 H (98-107) mmol/L Carbon Dioxide 17 L (22-32) mmol/L BUN 16 (9-20) mg/dL Creatinine 0.75 (0.66-1.25) mg/dL Estimated GFR > 60 (>60) mL/min BUN/Creatinine Ratio 21.3 (6-22) Glucose 132 H (80-110) mg/dL Lactate (0.7-2.1) mmol/L Calcium 9.5 (8.4-10.2) mg/dL Magnesium 1.6 (1.6-2.3) mg/dL Total Bilirubin 1.2 (0.2-1.3) mg/dL AST 22 (17-59) IU/L ALT 21 (<50) IU/L Alkaline Phosphatase 116 119 (38-126) U/L Total Creatine Kinase < 20 L (55-170) U/L CK-MB (CK-2) TNP CK-MB (CK-2) Rel Index TNP Troponin I < 0.012 (0.01-0.034) ng/mL C-Reactive Protein 14.6 H (<1.0) mg/dL Total Protein 6.1 L (6.3-8.2) g/dL Albumin 3.1 L (3.5-5.0) g/dL Globulin 3.0 (1.7-4.1) g/dL Albumin/Globulin Ratio 1.0 (1.0-2.8) Procalcitonin (<0.5) ng/mL SARS-CoV-2 (PCR) (Negative) 04/14/22 04/14/22 04/14/22 Range/Units 03:05 03:05 07:28 WBC (4.5-11.0) X10^3/uL RBC (4.5-5.9) X10^6/uL Hgb (13.5-17.5) g/dL Hct (41-53) % MCV (80-100) fL MCH (26-34) PG MCHC (30-36) % RDW (11.6-14.8) % Plt Count (150-400) X10^3/uL Neut % (Auto) (50-75) % Lymph % (Auto) Miller % (Auto) Eos % (Auto) Baso % (Auto) Lymph # (Auto) Miller # (Auto) Baso # (Auto) Platelet Estimate RBC Morphology Poikilocytosis Anisocytosis ESR (0-15) MM/HR PT 19.4 H (10.1-12.7) SECONDS INR 1.7 H (0.9-1.3) APTT 27 (26-36) SECONDS Sodium (137-145) mmol/L Potassium (3.4-5.1) mmol/L Chloride (98-107) mmol/L Carbon Dioxide (22-32) mmol/L BUN (9-20) mg/dL Creatinine (0.66-1.25) mg/dL Estimated GFR (>60) mL/min BUN/Creatinine Ratio (6-22) Glucose (80-110) mg/dL Lactate 0.9 (0.7-2.1) mmol/L Calcium (8.4-10.2) mg/dL Magnesium (1.6-2.3) mg/dL Total Bilirubin (0.2-1.3) mg/dL AST (17-59) IU/L ALT (<50) IU/L Alkaline Phosphatase (38-126) U/L Total Creatine Kinase (55-170) U/L CK-MB (CK-2) CK-MB (CK-2) Rel Index Troponin I (0.01-0.034) ng/mL C-Reactive Protein (<1.0) mg/dL Total Protein (6.3-8.2) g/dL Albumin (3.5-5.0) g/dL Globulin (1.7-4.1) g/dL Albumin/Globulin Ratio (1.0-2.8) Procalcitonin 2.88 H (<0.5) ng/mL SARS-CoV-2 (PCR) (Negative) 04/14/22 Range/Units 07:32 WBC (4.5-11.0) X10^3/uL RBC (4.5-5.9) X10^6/uL Hgb (13.5-17.5) g/dL Hct (41-53) % MCV (80-100) fL MCH (26-34) PG MCHC (30-36) % RDW (11.6-14.8) % Plt Count (150-400) X10^3/uL Neut % (Auto) (50-75) % Lymph % (Auto) Miller % (Auto) Eos % (Auto) Baso % (Auto) Lymph # (Auto) Miller # (Auto) Baso # (Auto) Platelet Estimate RBC Morphology Poikilocytosis Anisocytosis ESR (0-15) MM/HR PT (10.1-12.7) SECONDS INR (0.9-1.3) APTT (26-36) SECONDS Sodium (137-145) mmol/L Potassium (3.4-5.1) mmol/L Chloride (98-107) mmol/L Carbon Dioxide (22-32) mmol/L BUN (9-20) mg/dL Creatinine (0.66-1.25) mg/dL Estimated GFR (>60) mL/min BUN/Creatinine Ratio (6-22) Glucose (80-110) mg/dL Lactate (0.7-2.1) mmol/L Calcium (8.4-10.2) mg/dL Magnesium (1.6-2.3) mg/dL Total Bilirubin (0.2-1.3) mg/dL AST (17-59) IU/L ALT (<50) IU/L Alkaline Phosphatase (38-126) U/L Total Creatine Kinase (55-170) U/L CK-MB (CK-2) CK-MB (CK-2) Rel Index Troponin I (0.01-0.034) ng/mL C-Reactive Protein (<1.0) mg/dL Total Protein (6.3-8.2) g/dL Albumin (3.5-5.0) g/dL Globulin (1.7-4.1) g/dL Albumin/Globulin Ratio (1.0-2.8) Procalcitonin (<0.5) ng/mL SARS-CoV-2 (PCR) Negative (Negative) Point of Care Testing Glucose POC 106 Urine Dip Bedside Urine Glucose Negative Bedside Urine Bilirubin - Negative Bedside Urine Ketone - Negative Urine Specific Mobile 1.025 Bedside Urine Occult Blood - Negative Bedside Urine pH 6.0 Bedside Urine Protein - Negative Bedside Urine Urobilinogen - Negative Bedside Urine Nitrite - Negative Bedside Urine Leukocytes - Negative Esterase <Cheri Her, - Last Filed: 04/14/22 17:02> Lab Data Labs: Lab Results 04/14/22 04/14/22 04/14/22 Range/Units 03:05 03:05 03:05 WBC 0.5 L* (4.5-11.0) X10^3/uL RBC 3.49 L (4.5-5.9) X10^6/uL Hgb 11.3 L (13.5-17.5) g/dL Hct 32.7 L (41-53) % MCV 93.6 (80-100) fL MCH 32.5 (26-34) PG MCHC 34.7 (30-36) % RDW 20.0 H (11.6-14.8) % Plt Count 89 L (150-400) X10^3/uL Neut % (Auto) (50-75) % Lymph % (Auto) Not Reportable Miller % (Auto) Not Reportable Eos % (Auto) Not Reportable Baso % (Auto) Not Reportable Lymph # (Auto) Not Reportable Miller # (Auto) Not Reportable Baso # (Auto) Not Reportable Platelet Estimate Decreased on smear RBC Morphology See below Poikilocytosis 2+ H Anisocytosis 1+ H ESR 35 H (0-15) MM/HR PT (10.1-12.7) SECONDS INR (0.9-1.3) APTT (26-36) SECONDS Sodium 133 L (137-145) mmol/L Potassium 4.1 (3.4-5.1) mmol/L Chloride 108 H (98-107) mmol/L Carbon Dioxide 17 L (22-32) mmol/L BUN 16 (9-20) mg/dL Creatinine 0.75 (0.66-1.25) mg/dL Estimated GFR > 60 (>60) mL/min BUN/Creatinine Ratio 21.3 (6-22) Glucose 132 H (80-110) mg/dL Lactate (0.7-2.1) mmol/L Calcium 9.5 (8.4-10.2) mg/dL Magnesium 1.6 (1.6-2.3) mg/dL Total Bilirubin 1.2 (0.2-1.3) mg/dL AST 22 (17-59) IU/L ALT 21 (<50) IU/L Alkaline Phosphatase 116 119 (38-126) U/L Total Creatine Kinase < 20 L (55-170) U/L CK-MB (CK-2) TNP CK-MB (CK-2) Rel Index TNP Troponin I < 0.012 (0.01-0.034) ng/mL C-Reactive Protein 14.6 H (<1.0) mg/dL Total Protein 6.1 L (6.3-8.2) g/dL Albumin 3.1 L (3.5-5.0) g/dL Globulin 3.0 (1.7-4.1) g/dL Albumin/Globulin Ratio 1.0 (1.0-2.8) Procalcitonin (<0.5) ng/mL SARS-CoV-2 (PCR) (Negative) 04/14/22 04/14/22 04/14/22 Range/Units 03:05 03:05 07:28 WBC (4.5-11.0) X10^3/uL RBC (4.5-5.9) X10^6/uL Hgb (13.5-17.5) g/dL Hct (41-53) % MCV (80-100) fL MCH (26-34) PG MCHC (30-36) % RDW (11.6-14.8) % Plt Count (150-400) X10^3/uL Neut % (Auto) (50-75) % Lymph % (Auto) Miller % (Auto) Eos % (Auto) Baso % (Auto) Lymph # (Auto) Miller # (Auto) Baso # (Auto) Platelet Estimate RBC Morphology Poikilocytosis Anisocytosis ESR (0-15) MM/HR PT 19.4 H (10.1-12.7) SECONDS INR 1.7 H (0.9-1.3) APTT 27 (26-36) SECONDS Sodium (137-145) mmol/L Potassium (3.4-5.1) mmol/L Chloride (98-107) mmol/L Carbon Dioxide (22-32) mmol/L BUN (9-20) mg/dL Creatinine (0.66-1.25) mg/dL Estimated GFR (>60) mL/min BUN/Creatinine Ratio (6-22) Glucose (80-110) mg/dL Lactate 0.9 (0.7-2.1) mmol/L Calcium (8.4-10.2) mg/dL Magnesium (1.6-2.3) mg/dL Total Bilirubin (0.2-1.3) mg/dL AST (17-59) IU/L ALT (<50) IU/L Alkaline Phosphatase (38-126) U/L Total Creatine Kinase (55-170) U/L CK-MB (CK-2) CK-MB (CK-2) Rel Index Troponin I (0.01-0.034) ng/mL C-Reactive Protein (<1.0) mg/dL Total Protein (6.3-8.2) g/dL Albumin (3.5-5.0) g/dL Globulin (1.7-4.1) g/dL Albumin/Globulin Ratio (1.0-2.8) Procalcitonin 2.88 H (<0.5) ng/mL SARS-CoV-2 (PCR) (Negative) 04/14/22 Range/Units 07:32 WBC (4.5-11.0) X10^3/uL RBC (4.5-5.9) X10^6/uL Hgb (13.5-17.5) g/dL Hct (41-53) % MCV (80-100) fL MCH (26-34) PG MCHC (30-36) % RDW (11.6-14.8) % Plt Count (150-400) X10^3/uL Neut % (Auto) (50-75) % Lymph % (Auto) [place] % (Auto) Eos % (Auto) Baso % (Auto) Lymph # (Auto) [place] # (Auto) Baso # (Auto) Platelet Estimate RBC Morphology Poikilocytosis Anisocytosis ESR (0-15) MM/HR PT (10.1-12.7) SECONDS INR (0.9-1.3) APTT (26-36) SECONDS Sodium (137-145) mmol/L Potassium (3.4-5.1) mmol/L Chloride (98-107) mmol/L Carbon Dioxide (22-32) mmol/L BUN (9-20) mg/dL Creatinine (0.66-1.25) mg/dL Estimated GFR (>60) mL/min BUN/Creatinine Ratio (6-22) Glucose (80-110) mg/dL Lactate (0.7-2.1) mmol/L Calcium (8.4-10.2) mg/dL Magnesium (1.6-2.3) mg/dL Total Bilirubin (0.2-1.3) mg/dL AST (17-59) IU/L ALT (<50) IU/L Alkaline Phosphatase (38-126) U/L Total Creatine Kinase (55-170) U/L CK-MB (CK-2) CK-MB (CK-2) Rel Index Troponin I (0.01-0.034) ng/mL C-Reactive Protein (<1.0) mg/dL Total Protein (6.3-8.2) g/dL Albumin (3.5-5.0) g/dL Globulin (1.7-4.1) g/dL Albumin/Globulin Ratio (1.0-2.8) Procalcitonin (<0.5) ng/mL SARS-CoV-2 (PCR) Negative (Negative) Point of Care Testing Glucose POC 106 Urine Dip Bedside Urine Glucose Negative Bedside Urine Bilirubin - Negative Bedside Urine Ketone - Negative Urine Specific Mobile 1.025 Bedside Urine Occult Blood - Negative Bedside Urine pH 6.0 Bedside Urine Protein - Negative Bedside Urine Urobilinogen - Negative Bedside Urine Nitrite - Negative Bedside Urine Leukocytes - Negative Esterase MDM Narrative Medical decision making narrative: 04/14/22 Mank: Patient signed out to myself by Dr. Yang, seen independently evaluated by myself. Patient presents with lumbar back pain which is nontraumatic with fall approximately a month ago. Patient has known metastatic cancer. Patient has not been febrile but has been hypotensive, clinically dry on exam although labs do not reflect significant dehydration. Patient's blood pressure did seem to respond fluids. Patient is in good spirits on evaluation. Patient appears to be neutropenic unable to get a manual count but WBC of 0.5 platelets are low likely secondary to his recent count chemotherapy they know his platelets were low on this last time as well. Initial neutropenic antibiotics were ordered as well as blood cultures, urine culture and L-spine MRI shows multilevel disc disease prominent L3-L4 moderate spinal canal stenosis, multilevel facet arthrosis prominent L3-L4 and L4-L5. Patient does not have a clear source of infection cultures have been obtained, lactate is negative patient is responsive to fluids will bump his pressure but then dropped back down was given a 2 L which he seems to be responding to. Covered with IV antibiotics for potential neutropenic precautions although he has been afebrile he does have a low white count, procalcitonin is elevated and blood cultures are currently pending. Patient's point of care urine did not show clear infection, sample was either not labs were not sent to lab so new sample was sent this morning. Patient did not receive the full 30 per cc kilos bolus is unclear if his hypotension is truly secondary to sepsis but patient received 2 of the [address] Díaz who is covering for patient's service who accepts for observation. Unable to reach patient's family so far but patient states he is full code at this time and is open to aggressive interventions. Patient's family did arrive they state ever patient plan is for code status is correct. Discussed with Dr. Díaz they also note a wound on his which was evaluated here in the department does not appear to be infected or clear source for his changes today. Discharge Plan Departure Patient Disposition: Admitted as Observation Clinical Impression: Neutropenia, Hypotension, Back pain Admit Date/Time: 04/14/22 10:03 Admit Provider: Guicho Díaz
[2022-04-14 03:18] LABS: Hematocrit 32.7 % (41-53); Hemoglobin 11.3 g/dL (13.5-17.5); Mean Corpuscular HGB Conc 34.7 % (30-36); Mean Corpuscular Hemoglobin 32.5 PG (26-34); Mean Corpuscular Volume 93.6 fL (80-100); Platelet Count 89 X10^3/uL (150-400); Red Blood Cell Count 3.49 X10^6/uL (4.5-5.9)
[2022-04-14 03:25] LABS: Add Manual Diff / Slide Review SLIDE REVIEW
[2022-04-14 03:30] LABS: Alkaline Phosphatase 116 U/L (38-126); White Blood Cell Count 0.5 X10^3/uL (4.5-11.0)
[2022-04-14 03:33] LABS: Alanine Aminotransferase 21 IU/L (<50); Albumin 3.1 g/dL (3.5-5.0); Alkaline Phosphatase 119 U/L (38-126); Aspartate Aminotransferase 22 IU/L (17-59); BUN Creatinine Ratio 21.3 (6-22); Bilirubin Total 1.2 mg/dL (0.2-1.3); Blood Urea Nitrogen 16 mg/dL (9-20); Calcium 9.5 mg/dL (8.4-10.2); Carbon Dioxide 17 mmol/L (22-32); Chloride 108 mmol/L (98-107); Creatine Kinase < 20 U/L (55-170); Estimated Glomerular Filt Rate > 60 mL/min (>60); Glucose 132 mg/dL (80-110); HEMOLYSIS < 15 (0-50); Magnesium 1.6 mg/dL (1.6-2.3); Potassium 4.1 mmol/L (3.4-5.1); Sodium 133 mmol/L (137-145); Total Protein 6.1 g/dL (6.3-8.2)
[2022-04-14 03:37] LABS: Erythrocyte Sedimentation Rate 35 MM/HR (0-15)
[2022-04-14 03:42] LABS: Troponin I < 0.012 ng/mL (0.01-0.034)
[2022-04-14 03:44] LABS: Anisocytosis 1+; Platelet Estimate Decreased on smear; Poikilocytosis 2+
[2022-04-14 03:45] LABS: C-Reactive Protein Quant 14.6 mg/dL (<1.0)
--- NOTE | 2022-04-14 05:22 | DI.MRI.S_ITS ---
PROCEDURE: MR LUMBAR SPINE WO CON INDICATIONS: severe pain TECHNIQUE: Noncontrast sagittal T1 spin echo and T2 fast echo, sagittal STIR, and T2 fast spin echo through the lumbar spine. In cases with scoliosis, additional coronal T2 fast spin echo may be performed. COMPARISON: [facility], CT, CT LUMBAR SPINE W CON, 04/14/2022, 4:01. [facility], MR, MR LUMBAR SPINE WO CON, 07/18/2018, 18:48. FINDINGS: Image quality: Excellent. Alignment and Curvature: [place] left curvature of the lumbar spine apex at L3.. Bone Marrow: Marrow is of normal overall signal. No acute vertebral body compression fractures. Spinal Cord: Conus medullaris terminates at the L1 level. Visualized cord demonstrates normal signal and size. 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 Paraspinous Soft Tissues: No paravertebral masses. T12-L1: Normal appearance. L1-L2: Broad disc bulge causing mild narrowing of the lateral recesses. No significant foraminal narrowing. L2-L3: Posterior disc osteophyte complex and broad disc bulge resulting in mild spinal canal narrowing. Mild facet arthrosis resulting in mild foraminal narrowing. L3-L4: Posterior disc osteophyte complex and broad disc bulge results in moderate spinal canal stenosis exaggerated by rotary component. Facet arthrosis results in moderate-severe right foraminal narrowing and moderate left foraminal narrowing. L4-L5: Posterior disc osteophyte complex and small disc bulge results in mild narrowing of the left lateral recess. Facet arthrosis results in mild right and severe left foraminal narrowing. L5-S1: No spinal canal stenosis. Facet arthrosis results in mild bilateral foraminal narrowing. IMPRESSION: 1. Multilevel disc disease most prominent at L3-L4 with moderate spinal canal stenosis. 2. Multilevel facet arthrosis most prominent at L3-L4 and L4-L5. Dictated by: Grayson Rousseau M.D. on 04/14/2022 at 8:03 Approved by: Grayson Rousseau M.D. on 04/14/2022 at 8:11
[2022-04-14] MEDS: SODIUM CHLORIDE 0.9% 1,000 ML 1000 ML IV ×2 (05:48→08:55)
[2022-04-14 07:17] LABS: INR 1.7 (0.9-1.3); Prothrombin Time 19.4 SECONDS (10.1-12.7)
[2022-04-14 07:20] LABS: PTT Partial Thromboplastin Tim 27 SECONDS (26-36)
[2022-04-14] MEDS: LORazepam 2 MG/ML INJ 0.5 MG IV (07:27)
[2022-04-14 08:14] LABS: COVID19 -Nasal RAPID Negative (Negative)
[2022-04-14] MEDS: VANCOMYCIN 1,000 MG/200 ML PIGGYBACK 200 MG IV (08:35)
[2022-04-14] MEDS: PIPERACILLIN/TAZO 4.5 GM in SODIUM CHLORIDE 0.9% 100 ML IV (08:35)
[2022-04-14 08:58] LABS: Lactate (Lactic Acid) 0.9 mmol/L (0.7-2.1)
[2022-04-14 09:17] LABS: Procalcitonin 2.88 ng/mL (<0.5)
--- NOTE | 2022-04-14 10:13 | P.HP_ITS ---
History of Present Illness History of Present Illness Date Patient Seen: 04/14/22 Time Patient Seen: 10:13 Chief complaint: Back Pain Narrative: 76-year-old male normally followed by Dr. Griffin Bourgeois, who presented to the [facility] Emergency Department on day of admission with complaints of back pain lasting 2 or 3 hours prior to coming to the ER. That was severe in the low midline. Patient with known chronic back issues including lumbar scoliosis, lumbosacral spondylosis and lumbar foraminal stenosis. ER evaluation failed to reveal any new etiology as a cause for his pain including imaging etcetera. Is also found to be quite hypotensive and quite neutropenic. He seem to respond to IV fluid bolus as far as blood pressure. Patient with a significant elevation of C-reactive protein, ESR, and procalcitonin. Patient undergoing active chemo and radiation therapy for widely metastatic esophageal cancer including Mets to the brain. Last chemo infusion was 04/02/2022. Patient is admitted for continued management of his hypotension and for IV antibiotics given his neutropenic state etcetera In addition patient apparently has a wound on his the dorsum of his right foot. Been followed by wound clinic recently. Per ER physician this looks to be very clean without evidence of infection. Wound is nicely wrapped up in fresh gauze I chose not to look at it. No notes are available from wound clinic but apparently patient has been receiving antibiotics parenterally around I presume debridement, although exact details are unavailable to me at this time. Patient History Medical History Anemia Ruiz's esophagus with dysplasia Bladder cancer (04/06/10) Cancer of brain (~12/27/21) Chronic low back pain Deep vein thrombosis (DVT) of right lower extremity HLD (hyperlipidemia) Hypertension, essential, benign Inferior myocardial infarction Kidney stones Osteoarthritis Pneumonia Primary osteoarthritis of knees, bilateral Renal mass, left Surgical History History of arthroplasty of right hip (06/29/20) History of bladder surgery (~2009) History of esophagogastroduodenoscopy (EGD) (07/20/16) History of hernia repair (1969) History of hernia repair (1986) History of kidney surgery Hx of heart artery stent (2017) Family & Social History Social History: household members spouse Tobacco & Substance use: Smoking Status Never smoker alcohol intake current alcohol intake frequency a few times a week Substance Use Type does not use Meds Home Medications and Allergies Home Medications Medication Instructions Recorded Confirmed Type carvedilol 6.25 mg tablet 6.25 mg PO BID 05/08/18 04/14/22 History amlodipine 10 mg tablet 10 mg PO DAILY 06/22/20 04/14/22 History acetaminophen 325 mg capsule 650 mg PO QID PRN pain #60 caps 01/26/22 04/14/22 Rx (Tylenol) apixaban 5 mg tablet (Eliquis) 5 mg PO BID #60 tabs 02/09/22 04/14/22 Rx ondansetron 4 mg disintegrating 4 mg PO Q6H PRN Nausea And 02/19/22 04/14/22 Rx tablet Vomiting #60 tabs metformin 500 mg tablet 500 mg PO BID #60 tabs 02/26/22 04/14/22 Rx tamsulosin 0.4 mg capsule (Flomax) 0.4 mg PO DAILY #30 caps 04/04/22 04/14/22 Rx atorvastatin 80 mg tablet 80 mg PO BEDTIME 04/14/22 04/14/22 History dexamethasone 4 mg tablet 2 mg PO BID 04/14/22 04/14/22 History ezetimibe 10 mg tablet 10 mg PO DAILY 04/14/22 04/14/22 History lisinopril 40 mg tablet 40 mg PO QPM 04/14/22 04/14/22 History memantine 10 mg tablet 10 mg PO BID 04/14/22 04/14/22 History omeprazole 40 mg capsule,delayed 40 mg PO QAM 04/14/22 04/14/22 History release Allergies Allergy/AdvReac Type Severity Reaction Status Date / Time Penicillins [PENICILLINS] Allergy Intermediate Hives Verified 04/14/22 16:15 Review of Systems Review of Systems ROS: Yes All systems reviewed with the patient and are negative except as otherwise documented Exam Vital Signs (past 8 hours): - 04/14/22 02:55 04/14/22 02:55 04/14/22 02:56 Temperature 98.2 F Pulse Rate 94 H Respiratory Rate 18 Blood Pressure 83/50 L 83/50 L Pulse Oximetry 100 04/14/22 02:56 04/14/22 03:03 04/14/22 03:04 Temperature Pulse Rate 93 H 89 Respiratory Rate Blood Pressure 84/61 L Pulse Oximetry 99 100 04/14/22 03:04 04/14/22 03:30 04/14/22 03:30 Temperature Pulse Rate 90 76 Respiratory Rate Blood Pressure 83/57 L Pulse Oximetry 99 97 04/14/22 04:04 04/14/22 04:30 04/14/22 05:00 Temperature Pulse Rate 77 69 75 Respiratory Rate Blood Pressure Pulse Oximetry 97 98 96 04/14/22 05:30 04/14/22 06:00 04/14/22 06:30 Temperature Pulse Rate 78 77 69 Respiratory Rate Blood Pressure Pulse Oximetry 97 98 98 04/14/22 07:00 04/14/22 07:10 04/14/22 07:10 Temperature Pulse Rate 73 78 Respiratory Rate Blood Pressure 119/76 Pulse Oximetry 99 99 04/14/22 07:25 04/14/22 07:25 04/14/22 08:09 Temperature Pulse Rate 75 83 Respiratory Rate Blood Pressure 111/58 L Pulse Oximetry 98 95 04/14/22 08:15 04/14/22 08:30 04/14/22 08:45 Temperature Pulse Rate 81 76 Respiratory Rate Blood Pressure 73/52 L Pulse Oximetry 99 98 04/14/22 08:45 04/14/22 08:46 04/14/22 08:46 Temperature Pulse Rate 76 74 Respiratory Rate Blood Pressure 76/52 L Pulse Oximetry 96 97 04/14/22 09:00 04/14/22 09:00 04/14/22 09:15 Temperature Pulse Rate 65 Respiratory Rate Blood Pressure 83/54 L 80/57 L Pulse Oximetry 98 04/14/22 09:15 04/14/22 09:30 04/14/22 09:30 Temperature Pulse Rate 69 65 Respiratory Rate Blood Pressure 91/63 Pulse Oximetry 99 98 Narrative Exam Narrative: Elderly male in no obvious distress lying on a gurney in the emergency department HEENT unremarkable Lungs-clear with good breath sounds no wheezes no crackles Heart-regular rate and rhythm Abdomen-benign positive bowel tones soft nontender Neuro-alert and oriented x3, moves all 4 extremities, no focal findings on brief screening exam, gait not tested Extremities-no edema. Wound right foot not examined due to fresh bandage Objective Labs Result Diagrams: 04/15/22 05:00 04/15/22 05:00 Labs: Laboratory Results - last 24 hr 04/14/22 04/14/22 04/14/22 03:05 03:05 03:05 WBC 0.5 L* RBC 3.49 L Hgb 11.3 L Hct 32.7 L MCV 93.6 MCH 32.5 MCHC 34.7 RDW 20.0 H Plt Count 89 L Neut % (Auto) Lymph % (Auto) Not Reportable [place] % (Auto) Not Reportable Eos % (Auto) Not Reportable Baso % (Auto) Not Reportable Lymph # (Auto) Not Reportable [place] # (Auto) Not Reportable Baso # (Auto) Not Reportable Platelet Estimate Decreased on smear RBC Morphology See below Poikilocytosis 2+ H Anisocytosis 1+ H ESR 35 H PT INR APTT Sodium 133 L Potassium 4.1 Chloride 108 H Carbon Dioxide 17 L BUN 16 Creatinine 0.75 Estimated GFR > 60 BUN/Creatinine Ratio 21.3 Glucose 132 H Lactate Calcium 9.5 Magnesium 1.6 Total Bilirubin 1.2 AST 22 ALT 21 Alkaline Phosphatase 116 119 Total Creatine Kinase < 20 L CK-MB (CK-2) TNP CK-MB (CK-2) Rel Index TNP Troponin I < 0.012 C-Reactive Protein 14.6 H Total Protein 6.1 L Albumin 3.1 L Globulin 3.0 Albumin/Globulin Ratio 1.0 Procalcitonin SARS-CoV-2 (PCR) 04/14/22 04/14/22 04/14/22 03:05 03:05 07:28 WBC RBC Hgb Hct MCV MCH MCHC RDW Plt Count Neut % (Auto) Lymph % (Auto) [place] % (Auto) Eos % (Auto) Baso % (Auto) Lymph # (Auto) [place] # (Auto) Baso # (Auto) Platelet Estimate RBC Morphology Poikilocytosis Anisocytosis ESR PT 19.4 H INR 1.7 H APTT 27 Sodium Potassium Chloride Carbon Dioxide BUN Creatinine Estimated GFR BUN/Creatinine Ratio Glucose Lactate 0.9 Calcium Magnesium Total Bilirubin AST ALT Alkaline Phosphatase Total Creatine Kinase CK-MB (CK-2) CK-MB (CK-2) Rel Index Troponin I C-Reactive Protein Total Protein Albumin Globulin Albumin/Globulin Ratio Procalcitonin 2.88 H SARS-CoV-2 (PCR) 04/14/22 07:32 WBC RBC Hgb Hct MCV MCH MCHC RDW Plt Count Neut % (Auto) Lymph % (Auto) [place] % (Auto) Eos % (Auto) Baso % (Auto) Lymph # (Auto) [place] # (Auto) Baso # (Auto) Platelet Estimate RBC Morphology Poikilocytosis Anisocytosis ESR PT INR APTT Sodium Potassium Chloride Carbon Dioxide BUN Creatinine Estimated GFR BUN/Creatinine Ratio Glucose Lactate Calcium Magnesium Total Bilirubin AST ALT Alkaline Phosphatase Total Creatine Kinase CK-MB (CK-2) CK-MB (CK-2) Rel Index Troponin I C-Reactive Protein Total Protein Albumin Globulin Albumin/Globulin Ratio Procalcitonin SARS-CoV-2 (PCR) Negative Assessment & Plan Assessment & Plan narrative: 1. Hypotension-patient seems to be fluid responsive hypotension. No obvious in clear evidence of infection at this point although patient has elevated markers including procalcitonin and he is quite neutropenic. This point I think broad-spectrum IV antibiotics makes sense in effort to treat infection which should correct hypotension as well. He should continue to receive vigorous IV fluids and hopefully with these 2 interventions hypotension will resolve. Fortunately patient is asymptomatic and no other evidence of any complication r elated to his hypotension 2. Infectious disease-patient neutropenic with elevated markers for infection. May not be able to mount a fever given his neutropenia. No obvious source of infection including pulmonary urine etcetera. Coverage with broad-spectrum IV antibiotics certainly make sense in this setting. Patient reports a history of allergy to penicillin with hives but did receive IV cephalosporins as well as oral cephalosporins with hospitalization for a cellulitis in February. I will give him IV ceftriaxone as coverage. He already received piperacillin and vancomycin in the ER thus far without negative affect. Patient with wound on right foot being managed by wound care clinic here locally (although no notes are available in the hospital EMR). Does not look to be actively infected as per ER physician. Patient is on broad-spectrum antibiotics which would cover potential skin based infection as well. 3. Back pain-this point it seems appropriate to treat with oral pain medication and consider physical therapy when more stable. After complete evaluation in the ER does not seem like there is a secondary cause to his back pain beyond already known etiologies. Patient may well be able to go home and may well have been sent home if not for issues above including his neutropenia hypotension 4. Esophageal cancer-patient under going palliative treatment. Unsure as to goals of treatment and how that has been discussed with patient 5. Coronary disease-patient with known coronary disease with drug-eluting stent into the right coronary artery as well as disease in circumflex. Continue patient's usual medications no evidence of active ischemia or cardiac issues as a source of his hypotension at this time 6. Hyperglycemia-patient with noted hyperglycemia on routine testing done by Oncology. Started on metformin by his PCP in mid February. He has been chronically on steroid therapy and his elevated glucose thought to be secondary to that. Diagnosis of diabetes has not yet been applied. I am going to hold his metformin for now but follow his blood sugars and give him a carbohydrate consistent diet 7. Adrenal insufficiency-patient chronically on dexamethasone because of his brain metastases. Patient may have some element of adrenal insufficiency ongoing I am going to give him stress dose IV hydrocortisone at this point. Will plan to switch back to oral dexamethasone when patient is clinically improved and ready for discharge 8. Hematology-patient neutropenic with total white blood cell count of 500. Platelet count also somewhat decreased as is hemoglobin and hematocrit. Likely secondary to chemo given on 04/02. Plan to monitor numbers for now. If patient does not begin to mount an increased white blood cell response may need to consider administration of colony-stimulating factor, will consult with Hematology if necessary. 9. History of DVT-continue patient's oral anticoagulation with his relatively recent DVT (February 2022). Hold Eliquis if platelet count drops to 50,000 or less. 10. Code status-discussed with patient at length. I recommended patient be a no code given his chance of meaningful survival with metastatic cancer in the setting of an acute cardiopulmonary arrest is approximating 0. Even if he were to survive he would be very unlikely to be able to return home and function anything like his premorbid condition. However despite this discussion patient continues to desire to be a full code full efforts at resuscitation in the event of a sudden cardiac or respiratory arrest and therefore at his request he will continue to be a full code for the purposes this hospitalization.
[2022-04-14] MEDS: SODIUM CHLORIDE 0.9% 1,000 ML 150 ML IV ×2 (10:47→16:17)
[2022-04-14] MEDS: dexAMETHasone 4 MG TABLET 2 MG PO (12:25)
--- NOTE | 2022-04-14 13:32 | PC.NURSE ---
Per Arjun patient is not to take home medications amlodipine besylate 10mg every morning, Lisinopril 40mg every night. Per Arjun patients home dose of Carvedilol 6.25mg is to be lowered to the 3.125mg dose he ordered. I informed Dr. Díaz that patient also takes home medication memantine 10mg twice daily. Dr. Díaz gave a verbal order for this nurse to input that order. Per Arjun all medications that patient normally would've received this morning doesn't need to be retimed to give and can wait for next dose that is scheduled to give.
--- NOTE | 2022-04-14 15:52 | PC.NURSE ---
Transferred patient upstairs via stretcher. Patient had cell phone and tablet and both chargers with him when I left him in room 205 with [employer].
[2022-04-14] MEDS: HYDROCORTISONE 100 MG/2 ML VIAL IV (20:58)
[2022-04-14] MEDS: APIXABAN 5 MG TABLET PO (20:59)
[2022-04-14] MEDS: MEMANTINE HCL 5 MG TABLET 10 MG PO (20:59)
[2022-04-14] MEDS: carvediloL 3.125 MG TABLET PO (20:59)
[2022-04-14] MEDS: ATORVASTATIN 20 MG TABLET 80 MG PO (20:59)
[2022-04-14 23:48] LABS: Acinetobacter baumannii Not Detected (Not Detect); Candida albicans Not Detected (Not Detect); Candida glabrata Not Detected (Not Detect); Candida krusei Not Detected (Not Detect); Candida parapsilosis Not Detected (Not Detect); Candida tropicalis Not Detected (Not Detect); E. coli Not Detected (Not Detect); Enterobacter cloacae complex Detected (Not Detect); Enterobacteriaceae species Detected (Not Detect); Enterococcus species Not Detected (Not Detect); Haemophilus influenzae Not Detected (Not Detect); KPC (carbapenem-resist gene) Not Detected (Not Detect); Listeria monocytogenes Not Detected (Not Detect); Neisseria meningitidis Not Detected (Not Detect); Proteus species Not Detected (Not Detect); Pseudomonas aeruginosa Not Detected (Not Detect); Serratia marcescens Not Detected (Not Detect); Staphylococcus species Not Detected (Not Detect); Streptococcus agalactiae (Gr B Not Detected (Not Detect); Streptococcus pneumonia Not Detected (Not Detect); Streptococcus pyogenes (Gr A) Not Detected (Not Detect); Streptococcus species Not Detected (Not Detect)
[2022-04-15] VITALS (10 sets, daily range): BP systolic 99–163; BP diastolic 61–111; PULSE 62–100; RESP 15–18; TEMP 36.2–36.6; O2SAT 99–100
[2022-04-15] MEDS: cefTRIAXone 2,000 MG in SODIUM CHLORIDE 0.9% 100 ML 200 MG IV (01:03)
[2022-04-15] MEDS: SODIUM CHLORIDE 0.9% 1,000 ML 150 ML IV ×2 (01:10→13:55)
[2022-04-15 05:21] LABS: Mean Corpuscular HGB Conc 34.6 % (30-36); Mean Corpuscular Hemoglobin 32.7 PG (26-34); Mean Corpuscular Volume 94.4 fL (80-100); Platelet Count 61 X10^3/uL (150-400); Red Blood Cell Count 3.07 X10^6/uL (4.5-5.9); Red Cell Distribution Width 20.6 % (11.6-14.8)
[2022-04-15 05:30] LABS: Add Manual Diff / Slide Review YES
[2022-04-15 05:33] LABS: BUN Creatinine Ratio 20.4 (6-22); Blood Urea Nitrogen 11 mg/dL (9-20); Calcium 8.8 mg/dL (8.4-10.2); Carbon Dioxide 17 mmol/L (22-32); Chloride 113 mmol/L (98-107); Estimated Glomerular Filt Rate > 60 mL/min (>60); Glucose 112 mg/dL (80-110); HEMOLYSIS < 15 (0-50); Sodium 135 mmol/L (137-145)
[2022-04-15] MEDS: PANTOPRAZOLE DR 40 MG TABLET PO (06:00)
[2022-04-15] MEDS: HYDROCORTISONE 100 MG/2 ML VIAL IV (06:00)
[2022-04-15 06:21] LABS: Neutrophils Absolute Manual 530 /uL (3000-5900); Nucleated Red Blood Cells 1 #/Diff; Total Cells Counted 100
[2022-04-15 06:31] LABS: Anisocytosis 1+; Poikilocytosis 2+
[2022-04-15] MEDS: TAMSULOSIN 0.4 MG CAPSULE PO (09:55)
[2022-04-15] MEDS: carvediloL 3.125 MG TABLET PO (09:55)
[2022-04-15] MEDS: APIXABAN 5 MG TABLET PO ×2 (09:55→20:38)
[2022-04-15] MEDS: POTASSIUM CHLORIDE 20 MEQ TAB 40 MEQ PO ×3 (09:55→17:33)
[2022-04-15] MEDS: EZETIMIBE 10 MG TABLET PO (09:56)
[2022-04-15] MEDS: MEMANTINE HCL 5 MG TABLET 10 MG PO ×2 (10:02→20:38)
--- NOTE | 2022-04-15 10:07 | P.PN_ITS ---
Subjective Subjective Date Patient Seen: 04/15/22 Time Patient Seen: 10:07 Interval history: Patient growing Enterobacter cloaca complex from blood cultures x2 as well as a ?gram variable bacilli ?. Blood pressure seems to have stabilized although still a bit orthostatic when checked. Is actually even hypertensive at times. (Patient's normal home antihypertensive meds have been held and his carvedilol dose has been reduced) White blood cell count this morning is improved double yesterday's number however platelet count has dropped slightly Patient also bit hypokalemic this morning but persists with normal renal function Discussed with patient further, he was apparently receiving some continuous parental antibiotics via the wound care clinic was sent home with an antibiotic pump etcetera. This is administered through his port. Unclear as to what exactly was being administered how long it was administered etcetera In addition nursing staff reports spouse is asking about hospice etcetera. She feels like she is unable to care for patient at home any longer. It seems as though the discussion about code status has triggered some thoughts about short term verses medium term verses long-term goals of treatment care etcetera Exam Vital Signs (past 8 hours): - 04/15/22 04:52 04/15/22 07:50 04/15/22 09:55 Temperature 97.3 F L 97.4 F L Pulse Rate 64 64 64 Pulse Rate [Orthostatic Lying] Pulse Rate [Orthostatic Sitting] Pulse Rate [Orthostatic Standing] Respiratory Rate 15 18 Blood Pressure 148/91 H 163/100 H 163/100 H Blood Pressure [Orthostatic Lying] Blood Pressure [Orthostatic Sitting] Blood Pressure [Orthostatic Standing] Pulse Oximetry 100 100 Oxygen Flow Rate 0 04/15/22 09:35 Temperature Pulse Rate Pulse Rate [Orthostatic Lying] 100 H Pulse Rate [Orthostatic Sitting] 72 Pulse Rate [Orthostatic Standing] 67 Respiratory Rate Blood Pressure Blood Pressure [Orthostatic Lying] 130/90 Blood Pressure [Orthostatic Sitting] 99/66 Blood Pressure [Orthostatic Standing] 106/61 Pulse Oximetry Oxygen Flow Rate Oxygen Flow Rate 0 Objective Labs Result Diagrams: 04/15/22 05:00 04/15/22 05:00 Labs: Laboratory Results - last 24 hr 04/14/22 04/15/22 04/15/22 17:15 05:00 05:00 WBC 1.0 L* D RBC 3.07 L Hgb 10.0 L Hct 29.0 L MCV 94.4 MCH 32.7 MCHC 34.6 RDW 20.6 H Plt Count 61 L Neut % (Auto) Not Reportable Lymph % (Auto) Not Reportable [place] % (Auto) Not Reportable Eos % (Auto) Not Reportable Baso % (Auto) Not Reportable Lymph # (Auto) Not Reportable [place] # (Auto) Not Reportable Baso # (Auto) Not Reportable Total Counted 100 Seg Neutrophils % 46.0 Band Neutrophils % 7.0 Lymphocytes % (Manual) 27.0 Monocytes % (Manual) 20.0 H Neutrophils # (Manual) 530 L Nucleated RBCs 1 H RBC Morphology See below Poikilocytosis 2+ H Anisocytosis 1+ H Sodium 135 L Potassium 3.0 L Chloride 113 H Carbon Dioxide 17 L BUN 11 Creatinine 0.54 L Estimated GFR > 60 BUN/Creatinine Ratio 20.4 Glucose 112 H Calcium 8.8 A. baumannii (PCR) Not detected Ade albicans (PCR) Not detected C. glabrata (PCR) Not detected C. krusei (PCR) Not detected C. parapsilosis (PCR) Not detected C. tropicalis (PCR) Not detected Enterobacteriac sp PCR Detected H E. cloacae complex PCR Detected H Enterococcus sp PCR Not detected E. coli (PCR) Not detected H. influenzae (PCR) Not detected Klebsiella oxytoca PCR Not detected Klebsiella pneumoniae Not detected List. monocytogenes PCR Not detected N. meningitidis (PCR) Not detected Proteus species (PCR) Not detected Serratia marcescens PCR Not detected Staphylococcus sp PCR Not detected Staph aureus (PCR) Not detected mecA-Methicil Res Gene Not Reportable Streptococcus sp PCR Not detected Group A Strep (PCR) Not detected Strep agalactiae (PCR) Not detected Strep pneumoniae (PCR) Not detected P. aeruginosa (PCR) Not detected Kahlil/B-Vanco Res Genes Not Reportable KPC-Carbap Res Gene PCR Not detected PFSH Medical History Anemia Ruiz's esophagus with dysplasia Bladder cancer (04/06/10) Cancer of brain (~12/27/21) Chronic low back pain Deep vein thrombosis (DVT) of right lower extremity HLD (hyperlipidemia) Hypertension, essential, benign Inferior myocardial infarction Kidney stones Osteoarthritis Pneumonia Primary osteoarthritis of knees, bilateral Renal mass, left Surgical History History of arthroplasty of right hip (06/29/20) History of bladder surgery (~2009) History of esophagogastroduodenoscopy (EGD) (07/20/16) History of hernia repair (1969) History of hernia repair (1986) History of kidney surgery Hx of heart artery stent (2017) Social History marital status: household members: spouse Smoking Status: Former smoker alcohol intake: former substance use type: does not use Assessment & Plan Assessment & Plan narrative: 1. Hypotension-question secondary to infectious etiology with blood cultures being positive for couple of organisms verses being dehydrated verses his recent chemo etcetera. Improved after both parental antibiotics and IV fluids. I believe we can begin to cut back on IV fluids and perhaps depending on clinical course begin to restart his oral antihypertensives. I will return carvedilol to his usual dose at this point 2. Infectious disease-given the organisms growing from patient's blood cultures I presume his wounds on his lower extremity to be the source of infection despite their relatively benign appearance. Continue with parental antibiotics for least the next 24 hours while awaiting sensitivities and then likely switch to oral perhaps fluoroquinolone which has good coverage for Gram-negative o rganisms as well as excellent serum levels when given orally 3. Hematology-patient's white count his doubled although platelet count has dropped. Hemoglobin hematocrit also dropped. Plan to recheck tomorrow but I think this is a good sign that he is able to respond on his own at this point. He is 12+ days out from his last chemo as far as I can tell from the EMR and so would expect his numbers to begin to improve on their own. Change in white count might be secondary to the stress dose steroids, but frankly he has been on steroids long enough I doubt that there is going to be much of an effect in that regard merely from administration of steroids 4. Back pain-not an active issue at this time, consider seating of back with bacteria given his blood cultures and neutropenic status but at the moment there is no evidence of that given the rapid improvement in symptoms I doubt that is o ngoing but should remain within the differential diagnosis 5. Esophageal cancer-not an active issue at this time. Continued management as per Oncology including perhaps adjustment of upcoming chemo etcetera. Also discussion long-term goals of treatment to include code status etcetera would be entirely appropriate. It sounds like family at least his coming to the realization that he has a terminal disease and his remaining course is not likely to be measured in years but something significantly shorter such as weeks to months. Consideration of hospice care would be appropriate at some point but will need to involve his PCP and his oncologist in that discussion as well. 6. Coronary disease-trying keep patient's hemoglobin hematocrit elevated and continue with carvedilol for now. Continue statin therapy etcetera 7. Adrenal insufficiency-patient's vital signs are much improved as above. I am going to discontinue the parental hydrocortisone stress doses and switch back to dexamethasone what patient has been receiving chronically for his inter cerebral metastases. I am going to give him a slightly higher dose at this point to try and produce some stress coverage 8. History DVT-continue Eliquis although hold if platelet count drops to 50,000 or less 9. Hyperglycemia-patient currently with only minor hyperglycemia. Continue with insulin coverage as necessary and carb consistent diet. Continue off metformin for now Note: Greater than 30 minutes total time was spent on day of service, evaluating the patient on the floor, including examining the patient, discussing clinical course with clinical and nursing staff, reviewing clinical course in the computer, preparing documentation and writing orders for continued management of care, discussing status with family as appropriate, reviewing plans for the next 24 hours with both patient/family and nursing staff as appropriate. COVID-19 COVID-19 status: Negative Result date/Date tested (Pos, Neg/Pending): 04/14/22 Quality VTE Deep Vein Thrombosis/Pulmonary Embolism Present on Admission: No
[2022-04-15 10:18] LABS: Magnesium 1.8 mg/dL (1.6-2.3)
[2022-04-15 10:26] LABS: Ionized Calcium 5.5 mg/dL (4.5-5.6)
--- NOTE | 2022-04-15 14:21 | CM.DANOTE ---
Initial Discharge Assessment Planning Met with patient and introduced self and role. Payer: [facility] Advantage PCP: Griffin Bourgeois 76 year old male admitted 04/14/22 with c/o of Lumbar back pain. 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 His blood cultures are positive for enterobactr. Last chemo 04.02.22. Labs abnormal. Wound to dorsal R foot and left ankle. Has been receiving HH services from [facility] who has been providing wound care. Patient has positive upbeat attitude but is very weak and not able to ambulate. Ewa states via phonecall that he is getting to be too much for her to care for and that it is not safe, he is too big to move and help. Patient had stated to doctor that he wants to be a Full Code. She does not want him to return home and is asking about Hospice. Explained hospice services and that I would make an initial referral but that since he wants to be a full code he would not qualify. Discussed that a goals of care discussion with patient, physician, son and her take place possibly tomorrow since son is available. She has been afraid to address these issues with him. Plan: Will send initial [facility] referral and call [facility] for comfort care availability. (Ewa states she would want [facility] because of proximity to home). Hopefully a goals of care conference can occur in next few days. [place] Discharge Planning/Care Management Advanced directive, confirm from FAMILY Start: 04/14/22 16:15 Freq: Q24H Status: Active Protocol: Document 04/14/22 18:16 MS (Rec: 04/14/22 18:24 MS [id number]) Advance Directive, confirm on record Time 18:22 Person contacted Pt Copy received No CM Discharge Assessment Start: 04/15/22 13:49 Freq: Status: Active Protocol: Document 04/15/22 13:51 SJ (Rec: 04/15/22 14:20 SJ [id number]) Discharge Planning Assessment Assigned Supervisor Sample Preparation Tammy Perez RN/DCP Advance Directives? Yes Advance Directives on File No History Provided By Patient,Medical Record Prior Living Arrangements House Household Members spouse Type of transporation used prior to Relies on Others admit Independent with ADL's No: requires some assist with ADLs Is patient alert and oriented? Yes Needs Assistance With Meal Prep,Managing Medications ,Home Chores / Shopping Comment Patient not showering, refuses . Just uses washcloth to wash up. does wound care to bilateral feet. Caregiver for Another Yes Barriers to Discharge Yes Comment feels she cannot have him return home and would like to have him go to [facility] for comfort care. Discharge Plan Home Transportation Arrangement Depends upon disposition, Home vs SNF Referrals Initiated Other Additional Comment Home with hospice vs SNF comfort care at [facility] Whiteboard Updated in Patient Room with Yes name and ext. # of Supervisor Sample Preparation Review Status In Process Next Review Type Continued Stay Review
[2022-04-15] MEDS: dexAMETHasone 4 MG TABLET PO (17:33)
[2022-04-15] MEDS: ATORVASTATIN 20 MG TABLET 80 MG PO (20:37)
[2022-04-15] MEDS: carvediloL 3.125 MG TABLET 6.25 MG PO (20:39)
[2022-04-16] VITALS (7 sets, daily range): BP systolic 137–161; BP diastolic 81–104; PULSE 59–65; RESP 12–18; TEMP 35.9–37.2; O2SAT 95–100
[2022-04-16] MEDS: cefTRIAXone 2,000 MG in SODIUM CHLORIDE 0.9% 100 ML 200 MG IV (00:08)
[2022-04-16 06:34] LABS: BUN Creatinine Ratio 22.4 (6-22); Blood Urea Nitrogen 13 mg/dL (9-20); Calcium 9.4 mg/dL (8.4-10.2); Carbon Dioxide 18 mmol/L (22-32); Chloride 109 mmol/L (98-107); Estimated Glomerular Filt Rate > 60 mL/min (>60); Glucose 100 mg/dL (80-110); HEMOLYSIS 21 (0-50); Potassium 3.8 mmol/L (3.4-5.1); Sodium 133 mmol/L (137-145)
[2022-04-16] MEDS: PANTOPRAZOLE DR 40 MG TABLET PO (06:48)
[2022-04-16 07:04] LABS: Hematocrit 31.9 % (41-53); Mean Corpuscular HGB Conc 34.6 % (30-36); Mean Corpuscular Hemoglobin 32.5 PG (26-34); Mean Corpuscular Volume 93.9 fL (80-100); Platelet Count 47 X10^3/uL (150-400); Red Blood Cell Count 3.39 X10^6/uL (4.5-5.9); Red Cell Distribution Width 20.8 % (11.6-14.8)
[2022-04-16 07:06] LABS: Add Manual Diff / Slide Review YES
[2022-04-16 07:08] LABS: White Blood Cell Count 1.7 X10^3/uL (4.5-11.0)
[2022-04-16 07:34] LABS: Neutrophils Absolute Manual 578 /uL (3000-5900); Nucleated Red Blood Cells 1 #/Diff; Total Cells Counted 50
[2022-04-16 07:35] LABS: Anisocytosis 1+; Poikilocytosis 2+
[2022-04-16 07:36] LABS: Platelet Estimate Decreased on smear
[2022-04-16] MEDS: APIXABAN 5 MG TABLET PO (09:06)
[2022-04-16] MEDS: carvediloL 3.125 MG TABLET 6.25 MG PO ×2 (09:07→20:28)
[2022-04-16] MEDS: TAMSULOSIN 0.4 MG CAPSULE PO (09:07)
[2022-04-16] MEDS: EZETIMIBE 10 MG TABLET PO (09:07)
[2022-04-16] MEDS: dexAMETHasone 4 MG TABLET PO ×2 (09:07→17:08)
[2022-04-16] MEDS: MEMANTINE HCL 5 MG TABLET 10 MG PO ×2 (09:08→20:28)
[2022-04-16] MEDS: POTASSIUM CHLORIDE 20 MEQ TAB 40 MEQ PO ×3 (09:08→17:08)
--- NOTE | 2022-04-16 09:31 | PC.RNWOUND ---
Bilateral Buttocks Right Dorsal Foot Patient is resting in bed, turns to right side with minimal assist, sacral dressing is removed to reveal bilateral stage 3 pressure injuries to buttocks, located over the ischial sit bones, which were present on admission (see admission skin assessment). Left buttock wound measures 1.5 x 1 x 0.1cm with 0.2cm undermining from 7:00 to 10:00. There is some maceration noted to the wound edge from 7:00 to 10:00. Right buttock wound measures 1.2 x 1.2 x 0.1cm. Both wounds have a wound base with 50% subcutaneous non-granular tissue and 50% slough/collagen. These wounds have a scant amount of serosanguineous drainage to removed dressing. A fresh sacral dressing is placed and patient is given verbal education on importance of turning/repositioning every 2 hours or more to keep pressure off these areas. Patient's comes into room and says she has been doing dressing changes for patient under direction of wound healing center. Patient has multiple BLE dressings of hydrofera blue secured with hydrocolloid which are presently clean, dry, intact, and due to be changed this upcoming Saturday, according to patient's , who says she prefers they be left in place until then. Patient's removes Right Dorsal Foot dressing to reveal a 5.8 x 5.8 x 0.2cm ulcer (see photo above), which says is improving, and then does dressing change as she does at home for patient. Patient tolerates cares well and without complaint, plans to continue care at wound healing center after discharge from hospital.
--- NOTE | 2022-04-16 10:22 | PM.PN.1 ---
Subjective Subjective Date Patient Seen: 04/16/22 Time Patient Seen: 10:22 Interval history: Patient with relatively uneventful day yesterday. Spouse has been quite concerned about ability to take him home and manage him in the home setting Lab work from this morning shows improvement in his white blood cell count now at 1700. Hemoglobin hematocrit stable. Platelet count dropped slightly to 47,000 Patient's microbiology shows his Enterobacter is sensitive to current antibiotics (ceftriaxone) Exam Vital Signs (past 8 hours): - 04/16/22 04:00 04/16/22 08:00 Temperature 97.6 F 96.7 F L Pulse Rate 60 63 Respiratory Rate 16 16 Blood Pressure 152/100 H 153/93 H Pulse Oximetry 100 100 Oxygen Flow Rate 0 0 Oxygen Delivery Method Room Air Oxygen Flow Rate 0 Objective Labs Result Diagrams: 04/16/22 06:55 04/16/22 05:52 Labs: Laboratory Results - last 24 hr 04/14/22 04/15/22 04/16/22 03:17 05:00 05:52 WBC RBC Hgb Hct MCV MCH MCHC RDW Plt Count Neut % (Auto) Lymph % (Auto) [place] % (Auto) Eos % (Auto) Baso % (Auto) Lymph # (Auto) [place] # (Auto) Baso # (Auto) Total Counted Seg Neutrophils % Band Neutrophils % Lymphocytes % (Manual) Monocytes % (Manual) Neutrophils # (Manual) Nucleated RBCs Platelet Estimate RBC Morphology Poikilocytosis Anisocytosis Sodium 133 L Potassium 3.8 Chloride 109 H Carbon Dioxide 18 L BUN 13 Creatinine 0.58 L Estimated GFR > 60 BUN/Creatinine Ratio 22.4 H Glucose 100 Calcium 9.4 Ionized Calcium Anna 5.5 Magnesium 1.8 04/16/22 06:55 WBC 1.7 L* D RBC 3.39 L Hgb 11.0 L Hct 31.9 L MCV 93.9 MCH 32.5 MCHC 34.6 RDW 20.8 H Plt Count 47 L Neut % (Auto) Not Reportable Lymph % (Auto) Not Reportable [place] % (Auto) Not Reportable Eos % (Auto) Not Reportable Baso % (Auto) Not Reportable Lymph # (Auto) Not Reportable [place] # (Auto) Not Reportable Baso # (Auto) Not Reportable Total Counted 50 Seg Neutrophils % 32.0 L Band Neutrophils % 2.0 L Lymphocytes % (Manual) 44.0 Monocytes % (Manual) 22.0 H Neutrophils # (Manual) 578 L Nucleated RBCs 1 H Platelet Estimate Decreased on smear RBC Morphology See below Poikilocytosis 2+ H Anisocytosis 1+ H Sodium Potassium Chloride Carbon Dioxide BUN Creatinine Estimated GFR BUN/Creatinine Ratio Glucose Calcium Ionized Calcium Anna Magnesium [facility] Medical History Anemia Ruiz's esophagus with dysplasia Bladder cancer (04/06/10) Cancer of brain (~12/27/21) Chronic low back pain Deep vein thrombosis (DVT) of right lower extremity HLD (hyperlipidemia) Hypertension, essential, benign Inferior myocardial infarction Kidney stones Osteoarthritis Pneumonia Primary osteoarthritis of knees, bilateral Renal mass, left Surgical History History of arthroplasty of right hip (06/29/20) History of bladder surgery (~2009) History of esophagogastroduodenoscopy (EGD) (07/20/16) History of hernia repair (1969) History of hernia repair (1986) History of kidney surgery Hx of heart artery stent (2017) Social History marital status: household members: spouse Smoking Status: Former smoker alcohol intake: former substance use type: does not use Assessment & Plan Assessment & Plan narrative: 1. Hypotension-now resolved. Patient has become hypertensive. Will begin to restart patient's antihypertensive medications with lisinopril 20 mg today. IV fluids have been discontinued. 2. Infectious disease-given the organisms growing from patient's blood cultures I presume his wounds on his lower extremity to be the source of infection despite their relatively benign appearance. Continue with parental antibiotics. Current antibiotic therapy appears to be appropriate based on culture results and sensitivities. Given patient's history of previous parental antibiotics for his wound infection I am not anticipating discontinuing parental antibiotics until we can get details from wound care clinic as well as perhaps input from Wound Care physician tomorrow 3. Hematology-patient's blood counts are stable to improved with the exception of his platelets. I am going to hold his anticoagulation for now and plan to recheck numbers tomorrow. No indication for colony-stimulating factors at this point in my opinion. Obviously I believe his chemotherapy regimen may require some adjustment but defer that to Oncology of course 4. Back pain-not an active issue at this time, patient does need to get up out of bed with physical therapy and will see how his back does with that 5. Esophageal cancer-I had a discussion with patient with his spouse regarding this. He obviously has incurable cancer he is now been treated with whole-brain radiation and just completed cycle 3. Of chemotherapy. Cycle 1. Resulted in the need to extend time before cycle 2. And I believe even cycle 3. Is resulted in significant neutropenia anemia and thrombocytopenia as well as I think increased weakness and that is susceptibility is part of why he is in the hospital here today. I think patient needs to consider short term and medium term goals. Obviously the esophageal cancer is going to end his life prematurely. Discussion about increase quality of life perhaps by for going additional treatment for his cancer since it seems to me anyway that the chemotherapy etcetera has resulted in a poor quality of life. The brain radiation was I think certainly appropriate and effective for that purpose but the chemo maybe interfering with his ability to have a higher quality of life during his end of days. Chemotherapy may well extend his life span to some degree but obviously having had to reduce ideal plan for chemotherapy is going to reduce the effectiveness as well. These are all fair discussions for patient and family to have both with his PCP and with his oncologist. If patient is not able to be cared for in the home setting he will need to go to half-way from here and again I believe his hospitalization today is in part due to his chemotherapy and that should factor into his thinking as well I would believe. We talked about other options including going home with hospice or hospice etcetera alternative facility such as half-way etcetera. No decisions made but this conversation needs to continue on ongoing basis 6. Coronary disease-trying keep patient's hemoglobin hematocrit elevated and continue with carvedilol for now. Continue statin therapy etcetera 7. Adrenal insufficiency-patient's vital signs are much improved as above. Continue with dexamethasone orally at slightly higher than usual dose for stress dosing 8. History DVT-hold Eliquis [place] [id number]. Plan to recheck platelet count tomorrow 9. Hyperglycemia-patient currently with only minor hyperglycemia. Continue with insulin coverage as necessary and carb consistent diet. Continue off metformin for now Note: Greater than 45 minutes total time was spent on day of service, evaluating the patient on the floor, including examining the patient, discussing clinical course with clinical and nursing staff, reviewing clinical course in the computer, preparing documentation and writing orders for continued management of care, discussing status with family as appropriate, reviewing plans for the next 24 hours with both patient/family and nursing staff as appropriate. COVID-19 COVID-19 status: Negative Result date/Date tested (Pos, Neg/Pending): 04/14/22 Quality VTE Deep Vein Thrombosis/Pulmonary Embolism Present on Admission: No
--- NOTE | 2022-04-16 11:04 | DIET.CONS ---
Dietary Consultation Note Admission Date: 04/14/2022 10:03 Assessment: 76y M admitted for back pain and weakness referred to nutrition for significant decrease in POs and weight loss. Pt undergoing sx management chemotherapy tx for widely metastatic esophageal cancer c mets to brain (underwent whole brain radiation). Pt with stage 3 pressure sores to ischial bones as well as scattered BL LE wounds including on dorsal foot surface. Pt continues c OP wound care. Pt is a tall man (6'4) with significant accelerating unintentional acute weight loss 12% in 1mo c associated weakness. Pt previously had 5% unintentional weight loss the previous 4mo with BMI 22.5 (low for age and physiologic build). Pt reports significant weakness and poor appetite at home. Ht: 193.04 cm Wt: 83.7 kg (-12% in 4w, severe) BMI: 22.5 (low for age) UBW: 96-100kg Last BM: 04/15/22 (04/15/22 09:51) MNA: 5 Wero Score: 17 Diet: 04/14/22 Lunch Carbohydrate Consistent Diet Diet Modifications: Carbohydrate level: Large (4 CHO) Bedtime snack: No Nutrition Percent Meal Consumed 50% 04/16/22 08:55 Percent Meal Consumed 40% 04/15/22 18:00 Percent Meal Consumed 25% 04/15/22 13:00 Percent Meal Consumed 25% 04/15/22 09:21 Percent Meal Consumed 25% 04/14/22 18:16 Labs: RBC 3.39 X10^6/uL (4.5-5.9) L 04/16/22 06:55 Hgb 11.0 g/dL (13.5-17.5) L 04/16/22 06:55 Hct 31.9 % (41-53) L 04/16/22 06:55 Creatinine 0.58 mg/dL (0.66-1.25) L 04/16/22 05:52 Lactate 0.9 mmol/L (0.7-2.1) 04/14/22 07:28 Nutrition Diagnosis: Severe Acute Protein Calorie Malnutrition r/t reduced appetite, metastatic cancer catabolism aeb 12% unintentional weight loss in 4w (severe) c associated weakness- pt unable to walk, BMI 22.5 (low for age), pt with widely metastatic esophageal cancer c mets to brain, stage 3 pressure ulcer to buttocks with other pressure wounds being managed by outpatient wound care, pt reports little to no hunger. Interventions: 1. Recc 1/2 portions of high kcal/high pro nourishments. 2. Trial ONS Ensure Enlive bid to support nutrition status. EER: 100-125g PRO (1.3-1.5g/kg per PCM), 2500kcals (30kcal/kg) Monitoring/Evaluations: POs, ONS tolerance, POC Electronically Signed by: Taylor Harvey 04/16/22 11:04 Clinical Dietitian [address] [address]
[2022-04-16] MEDS: lisinopriL 20 MG TABLET PO (11:47)
--- NOTE | 2022-04-16 14:57 | PT-IP ANOTE ---
PT consult attempted with Mr Goncalves. He declined this afternoon stating that he just feels too weak and didn't think it was a good idea. He agreed to consider PT assessment in the AM.
--- NOTE | 2022-04-16 15:49 | CM.DPC ---
DCP Cont: Spoke to Dr. Díaz regarding patient. He will place P.T. orders, and see if patient may be able to go to rehab. Reminded provider that chemo meds at facilities are not covered, and was stated, he likely will not be on them during rehab. Met briefly with patient and his brother. Patient is 'is thinking about his options, and will discuss with Dr. Bourgeois. Let him know that this DC Parent Aide will be available tomorrow for any questions, and can touch base. P: DCP to continue to follow. Plan is most likely alf facility, but will need to see if patient is wanting hospice versus rehab. Alicia Landeros RN/Reject Opener And Filler
[2022-04-16] MEDS: ATORVASTATIN 20 MG TABLET 80 MG PO (20:28)
[2022-04-17] VITALS (9 sets, daily range): BP systolic 129–141; BP diastolic 92–102; PULSE 59–68; RESP 17–18; TEMP 35.6–37.3; O2SAT 95–100
[2022-04-17] MEDS: SODIUM CHLORIDE 0.9% 250 ML 21 ML IV (00:32)
[2022-04-17] MEDS: SODIUM CHLORIDE 0.9% FLUSH 10 ML IV ×3 (00:32→20:28)
[2022-04-17] MEDS: cefTRIAXone 2,000 MG in SODIUM CHLORIDE 0.9% 100 ML 200 MG IV (00:32)
--- NOTE | 2022-04-17 03:29 | PC.NURSE ---
Pt has been sleeping most of shift, denying pain. WBC increased to 1.7 this am. All dressing CDI. Pt on Q2T to relieve pressure on coccyx pressure injury.
[2022-04-17] MEDS: PANTOPRAZOLE DR 40 MG TABLET PO (06:16)
[2022-04-17 06:56] LABS: Hematocrit 35.7 % (41-53); Hemoglobin 12.2 g/dL (13.5-17.5); Mean Corpuscular HGB Conc 34.2 % (30-36); Mean Corpuscular Hemoglobin 32.1 PG (26-34); Mean Corpuscular Volume 93.6 fL (80-100); Platelet Count 70 X10^3/uL (150-400); Red Blood Cell Count 3.82 X10^6/uL (4.5-5.9); Red Cell Distribution Width 20.9 % (11.6-14.8); White Blood Cell Count 2.3 X10^3/uL (4.5-11.0)
[2022-04-17 07:26] LABS: Add Manual Diff / Slide Review YES
[2022-04-17 08:03] LABS: Neutrophils Absolute Manual 276 /uL (3000-5900); Nucleated Red Blood Cells 1 #/Diff; Total Cells Counted 50
[2022-04-17 08:05] LABS: Anisocytosis 1+; Poikilocytosis 1+
--- NOTE | 2022-04-17 08:58 | PM.PN.1 ---
Subjective Subjective Date Patient Seen: 04/17/22 Time Patient Seen: 08:58 Interval history: Patient seen and evaluated this morning. Patient states she has a good night last night. No significant complaints of pain. Has not been out of bed still feeling quite weak. Patient states he enjoyed the baseball game [employer] lost 3-2. Patient I had a conversation today about his goals of care. His was here earlier this morning his the left but he said she will be back. We have had discussions before about his care goals. Also his oncologist as well. Dr. Díaz again had a conversation with him this weekend. Reviewed his goals of care. Patient states he would like to continue with a high quality life. He said he would be optimistic to carry on as he is for the next 1-2 months. We discussed the chemotherapy code status hospice [facility] home health. At this time he feels like the next best step in his progression of his disease process would be having a hospice evaluation and consultation. He would like to postpone chemotherapy at this point did recover. He may consider that down the road but currently is not interested may consider terminating chemotherapy altogether. He would like to be treated for is a current infectious process to see if there is improvement of the strength. Exam Vital Signs (past 8 hours): - 04/17/22 03:48 04/17/22 07:00 04/17/22 08:00 Temperature 98.0 F 96.8 F L Pulse Rate 60 68 Respiratory Rate 18 17 Blood Pressure 140/95 H 129/102 H Pulse Oximetry 100 95 99 Oxygen Delivery Method Room Air Oxygen Flow Rate 0 0 Oxygen Delivery Method Room Air Oxygen Flow Rate 0 Narrative Exam Narrative: Gen.: Alert elderly gentleman quite frail and malnourished. HEENT: Pupils equal round and reactive or mucosa is dry Cardio: S1-S2 regular rate and rhythm Respiratory: Normal respiratory effort Abdomen: Soft nontender Extremities: Warm dry perfused dressing is intact. Objective Labs Result Diagrams: 04/17/22 06:20 04/16/22 05:52 Labs: Laboratory Results - last 24 hr 04/17/22 06:20 WBC 2.3 L RBC 3.82 L Hgb 12.2 L Hct 35.7 L MCV 93.6 MCH 32.1 MCHC 34.2 RDW 20.9 H Plt Count 70 L Neut % (Auto) Not Reportable Lymph % (Auto) Not Reportable [place] % (Auto) Not Reportable Eos % (Auto) Not Reportable Baso % (Auto) Not Reportable Lymph # (Auto) Not Reportable [place] # (Auto) Not Reportable Baso # (Auto) Not Reportable Total Counted 50 Seg Neutrophils % 10.0 L D Band Neutrophils % 2.0 L Lymphocytes % (Manual) 46.0 H Atypical Lymphs % 6.0 H Monocytes % (Manual) 34.0 H Eosinophils % (Manual) 2.0 Neutrophils # (Manual) 276 L Nucleated RBCs 1 H RBC Morphology Not Reportable Poikilocytosis 1+ H Anisocytosis 1+ H PFSH Medical History Anemia Ruiz's esophagus with dysplasia Bladder cancer (04/06/10) Cancer of brain (~12/27/21) Chronic low back pain Deep vein thrombosis (DVT) of right lower extremity HLD (hyperlipidemia) Hypertension, essential, benign Inferior myocardial infarction Kidney stones Osteoarthritis Pneumonia Primary osteoarthritis of knees, bilateral Renal mass, left Surgical History History of arthroplasty of right hip (06/29/20) History of bladder surgery (~2009) History of esophagogastroduodenoscopy (EGD) (07/20/16) History of hernia repair (1969) History of hernia repair (1986) History of kidney surgery Hx of heart artery stent (2017) Social History marital status: household members: spouse Smoking Status: Former smoker alcohol intake: former substance use type: does not use Assessment & Plan Assessment and plan (1) Primary adenocarcinoma of distal third of esophagus: Problem details: Widely metastatic including Mets to brain, receiving palliative chemo radiation therapy Status: Chronic Plan Infectious disease. Patient with enterobacter positive blood cultures with hypotension and pancytopenia Assessment & Plan narrative: Infectious disease. Patient had positive blood cultures with Enterobacter. Patient sensitive to the ceftriaxone he is currently on. Infectious source probably lower extremity versus ulcers on buttock area. Continue with IV antibiotics. Continue with appropriate wound care. Patient will continue with localized wound care therapy per wound nurse. And continue with IV antibiotics. Patient's hypotension is now resolved which is I am assuming was part of his infectious process. Pancytopenia due to chemotherapy. Patient has low white blood cell count low hemoglobin hematocrit and low platelets. His anticoagulation is on have hold. As his platelets increase in blood counts increase he will need to be restarted back on his chemotherapy. Severe acute protein calorie malnutrition recommendations by dietary recommend 1/2 portions of high calorie-protein nurse min. Trial of Ensure b.i.d. to support nutritional services Patient has right foot wound. Patient also had a wound care nurse evaluation was found to have stage III pressure ulcers present on arrival to the hospital of his bilateral buttock area. These wounds were dressed and treated per wound care protocol. Stage IV esophageal cancer. Shunt with esophageal cancer undergoing chemotherapy radiation. Goals of care conference happen today with patient. Previously discussion with his . Patient's goal care is to prolong life. But also to have a quality of life. Patient with a discussion today of stopping chemotherapy. Patient would like to proceed with hospice evaluation and discussion. He would like to be treated for current infections an improvement. Question whether he will go home with hospice or hospice with the care facility. We will continue to work with discharge planning on safe discharge plan Coronary artery disease. Continue with carvedilol. Monitor closely hemoglobin hematocrit. Continue with statin therapy. Adrenal insufficiency. Patient will continue on b.i.d. dexamethasone. He was on 2 mg twice daily this was increased to 4 mg twice daily. DVT. Patient's Eliquis is on hold restart this as platelets increase. Disposition and plan. Continue to maximize medical therapy here in the hospital with antibiotics nutrition wound consultation and evaluation. Patient has improvement of blood cell counts today. We will continue to optimize his medical management. Restart blood thinners. We will have a goals of care conference and review of long-term plan which will be 2 have a hospice evaluation and discussion. Hopes of hospice in placement with either home or penitentiary facility Time Spent With Patient Critical Care time: I spent a total of [] minutes of critical care time on this patient's care today; this time is exclusive of procedural time. Quality VTE Deep Vein Thrombosis/Pulmonary Embolism Present on Admission: No
[2022-04-17] MEDS: carvediloL 3.125 MG TABLET 6.25 MG PO ×2 (09:18→20:28)
[2022-04-17] MEDS: TAMSULOSIN 0.4 MG CAPSULE PO (09:18)
[2022-04-17] MEDS: MEMANTINE HCL 5 MG TABLET 10 MG PO ×2 (09:19→20:28)
[2022-04-17] MEDS: dexAMETHasone 4 MG TABLET PO ×2 (09:19→15:16)
[2022-04-17] MEDS: lisinopriL 20 MG TABLET PO (09:19)
--- NOTE | 2022-04-17 09:59 | DIET.CONS2 ---
Dietary Inpatient Consultation Note Admission Date: 04/15/2022 11:38 RD met c pt and Unit Host at bedside this am. Pt states he prefers warm foods as cold foods cause his body to turn into an icicle. Pt also states meat tastes like cardboard to him so he has been mostly avoiding it. Pt ordered carrot jose soup, mac and cheese, and LS cheesecake mousse for lunch. Kitchen will stir collagen peptides into soups, provide room temp ONS, and trial hot chocolate with collagen added to support protein and kcal needs. Diet: 04/14/22 Lunch Carbohydrate Consistent Diet Diet Modifications: 1/2 portions, high protein, Enlive (room temp) bid as snacks Carbohydrate level: Large (4 CHO) Bedtime snack: No Nutrition Percent Meal Consumed 50% 04/16/22 18:00 Percent Meal Consumed 25% 04/16/22 12:45 Percent Meal Consumed 50% 04/16/22 08:55 Percent Meal Consumed 40% 04/15/22 18:00 Percent Meal Consumed 25% 04/15/22 13:00 Electronically Signed by: Taylor Harvey 04/17/22 09:59 Clinical Dietitian [address] [id number]
--- NOTE | 2022-04-17 10:28 | PT-IP ANOTE ---
Per rounds patient has decided to have Hospice consult. Will discharge physical therapy at this time. Please re-order physical therapy if his discharge plan changes.
--- NOTE | 2022-04-17 10:38 | PC.RNWOUND ---
Patient resting in bed, turns to right side with assist. Sacral dressing is clean, dry, intact. left buttock pressure injury appears to be improving as evidenced by maceration no longer noted to wound edge which is also attached to wound base, no undermining noted. Sacral dressing is gently replaced and patient is repositioned to left side with pillow and 30 degree tilt, pillow is placed beneath legs to float heels, patient reports comfort, warm blanket given.
--- NOTE | 2022-04-17 11:01 | PC.NURSE ---
patient is a/o, weak and quiet/withdrawn. staff anticipates needs, offer Q2 hour/frequent turning and changing of position. patient declined offer to change position. wound RN in to see patient, and patient now agreeable to allow turning onto side for RN to change and assess dressing on backside. Ewa here, page to Dr Bourgeois, he will be here in 30 min to speak w/ and patient. tentative plan: hospice consult vs 5 stay ECF.
--- NOTE | 2022-04-17 12:21 | CM.DPC ---
DCP Cont: Met with patient and spouse, Ewa. Brought in the I-pad from the Medicare.gov website regarding facilities, should she want to consider a skilled facility. Already spoke to Dr. Bourgeois, and patient is wanting hospice. , on board with this as well. Spouse feels she can manage patient at home in his bed, just needs some direction on turning. Explained hospice services, and what they cover, and gave her a brochure. Did discuss skilled facilities, noting that this would be private pay should she elect to do this. She did ask if patient was able to go over to a facility for 5 days on comfort, if insurance would cover this, and let let her know with [facility], is uncertain. Let her know that this [place] Premium Card Cancellation Clerk would call [facility] geriatric case manager to inquire on this. Gave spouse the Senior Resource Guide, and a card with [facility]. Also let her know that hospice may have some respite, or volunteers for her to have some time away. Called [facility] geriatric case manager, and confirmed that they do not cover a 5 day stay, it's straight Medicare and they already have to be on hospice. Updated spouse, she wants spouse to go home, as this is his wishes, with hospice. Spouse needs equipment before he can go home, and let her know that this [place] Premium Card Cancellation Clerk will contact hospice and send referral. She has rented equipment from [employer] before, let her know that equipment is covered with hospice. Faxed [facility] over the referral, and encouraged them to contact spouse, Ewa, as primary contact. Placed her name on the face sheet. Sent over face sheet, H&P, today's progress note from Dr. Bourgeois, labs, med sheets, vitals. Called [facility] and spoke to Sarah about referral, and she will work on getting equipment out there tomorrow. Can work on getting patient discharged after it is know when the equipment will arrive. P: DCP to continue to follow. Have sent referral to [facility], and updated Sarah about referral. She will work on getting equipment out there tomorrow. Marcy at [facility] called back, received referral, will work on equpment, planning on BLS pharmacy picking technician, let spouse know about possible charge, she is aware. Alicia Landeros RN/Marketing Director Assisted Living
[2022-04-17] MEDS: levoFLOXacin 750 MG/150 ML PIGGYBACK 100 MG IV (15:15)
[2022-04-17] MEDS: ATORVASTATIN 20 MG TABLET 80 MG PO (20:27)
--- NOTE | 2022-04-17 22:27 | PC.NURSE ---
Patient is alert and oriented. Breath sounds CTA with RA sat of 100%. HRR. BP elevated at 141/99; is consistently trending high. Denies nausea. BT present and abdomen is soft; reports BM 2 days ago. Is voiding per urinal; denies dysuria. Is able to turn himself in bed but prefers to lie on back; reminded to change position to prevent worsening pressure injury. Dressing to sacrum, bilateral knees, left inner ankle and right foot all CDI. Wearing bilateral calf SCD's. Denies pain. Fall risk score is high and bed alarm is activated.
[2022-04-18] VITALS: BP 121/92; PULSE 72; RESP 18; TEMP 36.6; O2SAT 94
[2022-04-18 04:00] VITALS: BP 120/90; PULSE 70; RESP 18; TEMP 37; O2SAT 98
[2022-04-18] MEDS: PANTOPRAZOLE DR 40 MG TABLET PO (05:46)
[2022-04-18 06:35] LABS: Hematocrit 35.9 % (41-53); Hemoglobin 12.5 g/dL (13.5-17.5); Mean Corpuscular HGB Conc 34.7 % (30-36); Mean Corpuscular Hemoglobin 32.3 PG (26-34); Mean Corpuscular Volume 93.1 fL (80-100); Platelet Count 74 X10^3/uL (150-400); Red Blood Cell Count 3.85 X10^6/uL (4.5-5.9); Red Cell Distribution Width 20.9 % (11.6-14.8); White Blood Cell Count 3.6 X10^3/uL (4.5-11.0)
[2022-04-18 06:42] LABS: Add Manual Diff / Slide Review YES
[2022-04-18 06:44] LABS: Alanine Aminotransferase 18 IU/L (<50); Albumin 2.8 g/dL (3.5-5.0); Alkaline Phosphatase 114 U/L (38-126); Aspartate Aminotransferase 20 IU/L (17-59); Bilirubin Total 0.8 mg/dL (0.2-1.3); Blood Urea Nitrogen 22 mg/dL (9-20); Calcium 9.7 mg/dL (8.4-10.2); Carbon Dioxide 21 mmol/L (22-32); Chloride 105 mmol/L (98-107); Estimated Glomerular Filt Rate > 60 mL/min (>60); Globulin 2.8 g/dL (1.7-4.1); Glucose 125 mg/dL (80-110); HEMOLYSIS < 15 (0-50); Sodium 132 mmol/L (137-145); Total Protein 5.6 g/dL (6.3-8.2)
[2022-04-18 07:00] VITALS: O2SAT 98
[2022-04-18 07:07] LABS: Neutrophils Absolute Manual 1044 /uL (3000-5900); Total Cells Counted 100
[2022-04-18 07:09] LABS: Anisocytosis 1+; Smudge Cells 1+
[2022-04-18 08:00] VITALS: BP 126/99; PULSE 72; RESP 18; TEMP 36.7; O2SAT 100
--- NOTE | 2022-04-18 08:20 | PC.RNWOUND ---
Sacral dressing clean, dry, intact. Lower extremity wounds all get dressing changes by wound nurse and patient's , who has been doing patient's wound care at home. Education is given verbally and by demonstration to patient and regarding turning and repositioning for pressure injury prevention, the importance of weight shifts and floating heels off bed surface, etc. Patient and verbalize understanding. Patient tolerates cares well.
--- NOTE | 2022-04-18 08:44 | P.DS_ITS ---
History of Present Illness History of Present Illness Chief complaint: Back Pain Discharge Providers Provider Date of admission: 04/15/22 11:38 Discharge Date: 04/18/22 Primary care physician: Griffin Bourgeois MD Consults: 04/14/22 16:14 Consult to Dietitian, Adult Routine Comment: hx of CA with mets Reason For Exam: significant decrease in food intake and weight los 04/14/22 18:45 Consult to Inpatient Wound Care Nurse Routine Comment: Reason for consultation: stage2 to stage 3 pressure injury coccyx area Has provider been notified: No 04/15/22 11:08 Consult to Discharge Planning Routine Comment: 04/16/22 10:21 Consult to Physical Therapy Evaluate & Treat Comment: Physician Instructions: Evaluate and Treat 04/16/22 16:10 Consult to Dietitian, Adult Routine Comment: Reason For Exam: tenzin score 13, poor appetite, multiple wounds Discharge provider: Griffin Bourgeois MD Summary Hospital Course Discharge Diagnosis: Enterobacter bacteremia due to lower extremity wound verses coccyx pressure ulcer. Patient was admitted to the hospital with hypotension clinical signs and symptoms of infection. Patient was placed on broad-spectrum antibiotics given IV fluids and blood cultures were taken. Patient had positive blood cultures with Enterobacter. Patient had initial broad-spectrum antibiotics which were changed to the appropriate antibiotic for sensitivity of this medication. Over the initial 24 hours patient's blood pressure stabilized. Patient responded well to treatment and antibiotics. At the time of discharge. Appropriate anti biotics were in place and patient's blood pressure was controlled. Pancytopenia due to chemotherapy for treatment of esophageal cancer. Patient came in his white blood cell count and C count were significantly low as well as anemia and thrombocytopenia all due to underlying chemotherapy. This certainly contributed to his infectious status and immune compromised status. During hospital stays blood counts improved including hemoglobin hematocrit and white blood cell count. Stage IV esophageal cancer. With metastatic disease to the brain with radiation. Patient undergoing cancer treatment. During his hospital stay had this was discussed to consistently. Patient and have been discussing over the past few months long-term care goals and plans and wishes. After 1st source of chemotherapy they thought about to no longer doing chemotherapy after the 2nd dose they decided that they do not want to proceed with further chemotherapy or interventions. Hospice evaluation was the provided for patient and family. Patient's ultimate decision was to go home with hospice support. Lower extremity wound and coccyx pressure ulcer stage III present on arrival. Possible source of underlying infection. Wound Care consultation was provided here in the hospital with dressing changes patient's was taught about dressing care at home she has been comfortable doing this and will continue to do pressure prevention at home and dressing changes. Severe acute protein calorie mild nutrition. Recommendations by nutrition is provided in the hospital. These recommendations will be continued home with Ensure and boost and protein calorie increased intake. Adrenal insufficiency prevention. Patient will be discharged home on dexamethasone 2 mg twice daily. Subacute DVT patient hospitalized approximately 1 month ago for venous thromboembolism. His anticoagulation will be continued at home and now that his blood counts are stabilized. Coronary artery disease chronic and stable at this point. Due to patient's medical goals of being comfortable. And no broke interventions will make some changes to his medication and stop his statin. Patient's discharge plan will be home with hospice today. Exam Vital Signs (past 8 hours): - 04/18/22 04:00 Temperature 98.6 F Pulse Rate 70 Respiratory Rate 18 Blood Pressure 120/90 Pulse Oximetry 98 Oxygen Flow Rate 0 Oxygen Delivery Method Room Air Oxygen Flow Rate 0 Narrative Exam Narrative: Gen.: Alert no apparent distress HEENT: Pupils equal round and reactive or mucosa is moist Cardio: [S1-S2 regular rate and rhythm no murmurs appreciated.] Respiratory: Normal respiratory effort Abdomen: Soft nontender Extremities: Warm dry perfused no edema Objective Labs Result Diagrams: 04/18/22 06:05 04/18/22 06:05 Labs: Laboratory Results - last 24 hr 04/18/22 04/18/22 06:05 06:05 WBC 3.6 L D RBC 3.85 L Hgb 12.5 L Hct 35.9 L MCV 93.1 MCH 32.3 MCHC 34.7 RDW 20.9 H Plt Count 74 L Neut % (Auto) Not Reportable Lymph % (Auto) Not Reportable [place] % (Auto) Not Reportable Eos % (Auto) Not Reportable Baso % (Auto) Not Reportable Lymph # (Auto) Not Reportable [place] # (Auto) Not Reportable Baso # (Auto) Not Reportable Total Counted 100 Seg Neutrophils % 29.0 L D Lymphocytes % (Manual) 29.0 Atypical Lymphs % 1.0 H Monocytes % (Manual) 38.0 H Eosinophils % (Manual) 1.0 L Metamyelocytes % 2.0 H Neutrophils # (Manual) 1044 L Smudge Cells 1+ H RBC Morphology See below Anisocytosis 1+ H Sodium 132 L Potassium 4.0 Chloride 105 Carbon Dioxide 21 L BUN 22 H Creatinine 0.71 Estimated GFR > 60 BUN/Creatinine Ratio 31.0 H Glucose 125 H Calcium 9.7 Total Bilirubin 0.8 AST 20 ALT 18 Alkaline Phosphatase 114 Total Protein 5.6 L Albumin 2.8 L Globulin 2.8 Albumin/Globulin Ratio 1.0 PFSH Medical History Anemia Ruiz's esophagus with dysplasia Bladder cancer (04/06/10) Cancer of brain (~12/27/21) Chronic low back pain Deep vein thrombosis (DVT) of right lower extremity HLD (hyperlipidemia) Hypertension, essential, benign Inferior myocardial infarction Kidney stones Osteoarthritis Pneumonia Primary osteoarthritis of knees, bilateral Renal mass, left Surgical History History of arthroplasty of right hip (06/29/20) History of bladder surgery (~2009) History of esophagogastroduodenoscopy (EGD) (07/20/16) History of hernia repair (1969) History of hernia repair (1986) History of kidney surgery Hx of heart artery stent (2017) Social History marital status: household members: spouse Smoking Status: Former smoker alcohol intake: former substance use type: does not use Discharge Plan Discharge Plan Patient Disposition: Home Discharge orders & Medications Prescriptions: New oxycodone 5 mg capsule 5 mg PO TID PRN (Reason: pain) Qty: 30 0RF levofloxacin 500 mg tablet 500 mg PO DAILY Qty: 10 0RF Continued tamsulosin [Flomax] 0.4 mg capsule 0.4 mg PO DAILY Qty: 30 1RF carvedilol 6.25 mg tablet 6.25 mg PO BID acetaminophen [Tylenol] 325 mg capsule 650 mg PO QID PRN (Reason: pain) Qty: 60 0RF Eliquis 5 mg Tablet 5 mg PO BID Qty: 60 3RF amlodipine 10 mg Tablet 10 mg PO DAILY ondansetron 4 mg Tablet,Disintegrating 4 mg PO Q6H PRN (Reason: Nausea And Vomiting) Qty: 60 0RF omeprazole 40 mg capsule,delayed release(DR/EC) 40 mg PO QAM Label Comments: TAKE 1 CAPSULE BY MOUTH DAILY dexamethasone 4 mg tablet 2 mg PO BID Label Comments: TAKE 1/2 TABLET BY MOUTH TWICE DAILY lisinopril 40 mg tablet 40 mg PO QPM Discontinued metformin 500 mg tablet 500 mg PO BID Qty: 60 3RF memantine 10 mg tablet 10 mg PO BID ezetimibe 10 mg tablet 10 mg PO DAILY Label Comments: TAKE 1 TABLET BY MOUTH ONCE DAILY atorvastatin 80 mg tablet 80 mg PO BEDTIME Follow up/Referrals: Griffin Bourgeois MD [Primary Care Provider] - Discharge Data Primary Care Provider: Griffin Bourgeois Quality VTE Deep Vein Thrombosis/Pulmonary Embolism Present on Admission: No
[2022-04-18] MEDS: lisinopriL 20 MG TABLET PO (08:51)
[2022-04-18] MEDS: TAMSULOSIN 0.4 MG CAPSULE PO (08:51)
[2022-04-18 08:56] VITALS: BP 126/99; PULSE 72
[2022-04-18] MEDS: dexAMETHasone 4 MG TABLET PO (08:56)
[2022-04-18] MEDS: MEMANTINE HCL 5 MG TABLET 10 MG PO (08:56)
[2022-04-18] MEDS: carvediloL 3.125 MG TABLET 6.25 MG PO (08:56)
[2022-04-18] MEDS: SODIUM CHLORIDE 0.9% FLUSH 10 ML IV (09:15)
--- NOTE | 2022-04-18 10:32 | CM.DPC ---
DCP Discharge Home with Hospice Per MD, pt is stable for d/c to home with spouse today and new [facility] to [facility] this week and MD completed POLST form with pt bedside and signed for Comfort Measures. SW spoke to pt's spouse and confirmed she is headed home as Hospice DME to be delivered between [id number] and spouse agreeable with pt discharging home today once DME delivered and feels BLS transport needed and feels confident so far in caring for pt at home before Hospice opens and states she has resources given by previous DCP for PP CG if needed after d/c. SUMEET called [facility] and updated on plan of d/c to home around 1400 and confirmed they have pt on the schedule for 04/21/22 and faxed d/c summary to review. CATHIE Boogie kindly scheduled transport via [facility] around 1400 and SUMEET completed BLS form and attached POLST and facesheet for transport. SUMEET updated nuclear medicine officer, WORLD LANGUAGE TEACHER, and RN. Plan: Patient to d/c home today via [facility] at 1400 to home with [facility] to open on 04/21/22. LANDON Limon
--- NOTE | 2022-04-18 10:36 | CM.DPNOTE ---
Called [facility] for BLS transport to pts. home. Spoke to Farooq to picket labor union pt. at 1400 per Judy. Chuyita Crawford CM Assist.
--- NOTE | 2022-04-18 14:34 | PC.NURSE ---
Pt is A&Ox3, VSS, afebrile on RA. LS clear. He denies pain today, and denies nausea. Appetite is fair. He is seen by the therapy administrative assistant and is at bedside this a.m. She changes his dressings to his knees, shins and R foot as well as sacrum. He is encouraged to turn and reposition frequently at least every two hours. He is cleared for discharge home today after hospice equipment arrives at 10 a.m. and patient verbalize understanding of discharge medications, and follow up contact for concerns as well. He signs his POLST and it is sent home with patient along with all of his belongings VIA EMS. EMS arrived to transport patient home via stretcher at 1430.
== END 2022-04-18 14:30 | disposition hospice, home (50) | DRG 808 ==
LOC: ED 10:02 → AC 10:04
PROVIDERS: Emergency Medicine; Admitting Provider Internal Medicine; Emergency Provider Emergency Medicine; Family Provider Family Medicine; PCP Family Medicine; Referring Provider Emergency Medicine; Visit Provider Family Medicine
DX: D70.9 Neutropenia, unspecified (principal); L89.323 Pressure ulcer of left buttock, stage 3; L89.313 Pressure ulcer of right buttock, stage 3; E43 Unspecified severe protein-calorie malnutrition; C15.9 Malignant neoplasm of esophagus, unspecified; C79.31 Secondary malignant neoplasm of brain; L97.518 Non-pressure chronic ulcer of other part of right foot with other specified severity; L03.317 Cellulitis of buttock; E27.40 Unspecified adrenocortical insufficiency; D61.810 Antineoplastic chemotherapy induced pancytopenia; I95.9 Hypotension, unspecified; I25.10 Atherosclerotic heart disease of native coronary artery without angina pectoris; R73.9 Hyperglycemia, unspecified; B96.89 Other specified bacterial agents as the cause of diseases classified elsewhere; I10 Essential (primary) hypertension; Z95.5 Presence of coronary angioplasty implant and graft; Z79.01 Long term (current) use of anticoagulants; Z87.891 Personal history of nicotine dependence; Z86.718 Personal history of other venous thrombosis and embolism; Z68.22 Body mass index [BMI] 22.0-22.9, adult; Z20.822 Contact with and (suspected) exposure to COVID-19
CPT/HCPCS: 36415; 36592; 72132; 72148; 80048; 80053; 81003; 82330; 82550; 82962; 83605; 83735; 84075; 84145; 84484; 85007; 85025; 85610; 85651; 85730; 86140; 87040; 87086; 87150; 87186; 87635; 96365; 96368; 96375; 99219; 99233; 99238; 99284; C9803; G0378; J0696; J1720; J1815; J1956; J2060; J2543; Q9967